=== PATIENT | female | born 1965 | race Hispanic/Latino ===

== ENCOUNTER 2017-08-20 | Emergency (ER) | payer BC ==
--- NOTE | 2017-08-20 04:02 | ER ---
Nurse's Notes [facility] Name: Joanna Parish Age: 52 yrs Sex: Female : 1965 Arrival Date: 08/20/2017 Time: 03:28 Bed 16 Private MD: Diagnosis: Suppurative otitis media, unspecified, right ear Presentation: 08/20 03:53 Presenting complaint: Patient states: Patient presented with ear pain that started 2 ag2 days ago, patient stated she has no ear drum in that ear and is draining pus from it. Transition of care: patient was not received from another setting of care. Onset of symptoms was August 18, 2017. Care prior to arrival: None. 03:53 Method Of Arrival: Ambulatory ag2 03:53 Acuity: ANDRES 4 ag2 Triage Assessment: 04:06 General: Appears in no apparent distress. uncomfortable, Behavior is calm, cooperative. ag2 DIRECTOR ASSET: 04:08 LMP N/A - Post-menopause ag2 Historical: - Allergies: 04:04 No Known Allergies; ag2 - Home Meds: 04:04 lisinopril-hydrochlorothiazide 20-25 mg oral tab 1 tab once daily for Hypertension ag2 [Active]; Janumet oral oral [Active]; Lipitor Oral [Active]; - PMHx: 04:02 Diabetes - NIDDM; Hypertension; gs 04:06 Hypertension; Hyperlipidemia; Diabetes - NIDDM; ag2 - PSHx: 04:06 ; ag2 - Immunization history:: Flu vaccine is not up to date. It has been more than one year since last vaccine. - Social history:: The patient lives at home, Patient/guardian denies using alcohol, street drugs, IV drugs, tobacco products, Smoking status: Patient/guardian denies using tobacco, never smoked. Screenin:10 Abuse screen: Denies threats or abuse. Nutritional screening: No deficits noted. ag2 Tuberculosis screening: No symptoms or risk factors identified. Fall Risk None identified. Assessment: 04:10 General: Appears in no apparent distress. uncomfortable, Behavior is calm, cooperative, ag2 Smells of. 04:12 Pain: Complains of pain in right ear Pain does not radiate. Pain currently is 7 out of ag2 10 on a pain scale. Cardiovascular: Heart tones S1 S2 present. Respiratory: Breath sounds are clear bilaterally. GI: Bowel sounds present X 4 quads. EENT: Reports pain in right ear. Vital Signs: 04:08 BP 165 / 110; Pulse 98; Resp 18; Temp 97.7; Pulse Ox 97% on R/A; Pain 7/10; ag2 ED Course: 03:28 Patient arrived in ED. do 03:46 Mikey Aguirre MD is Attending Physician. gs 03:56 Triage completed. ag2 04:01 Yudelka Machado MD is Referral Physician. gs 04:08 Arm band placed on left wrist. ag2 04:10 Patient has correct armband on for positive identification. Bed in low position. Call ag2 light in reach. Side rails up X2. Adult w/ patient. 04:10 No provider procedures requiring assistance completed. Patient did not have IV access ag2 during this emergency room visit. 04:14 Kim Leigh is Primary Nurse. ag2 Administered Medications: No medications were administered Outcome: 04:02 Discharge ordered by . 04:14 Discharged to home ambulatory. ag2 04:14 Condition: stable 04:14 Discharge instructions given to patient, Instructed on discharge instructions. 04:16 Patient left the ED. ag2 Signatures: Gina Reese Gregory, MD MD Kim Leigh ag2
--- NOTE | 2017-08-20 04:02 | EDPHYS ---
Physician Documentation [facility] Name: Joanna Parish Age: 52 yrs Sex: Female : 1965 Arrival Date: 08/20/2017 Time: 03:28 Bed 16 Private MD: ED Physician Mikey Aguirre HPI: 08/20 03:56 This 52 yrs old Female presents to ER via Unassigned with complaints of Ear gs Pain. 03:56 The patient presents with drainage, that is purulent, pain, that is acute. The gs complaints affect the right ear. Onset: The symptoms/episode began/occurred acutely, 3 day(s) ago, and became worse and became persistent. Associated signs and symptoms: Pertinent negatives: fever. Severity of symptoms: At their worst the symptoms were moderate in the emergency department the symptoms are unchanged. The patient has experienced similar episodes in the past, a few times. has loss of eardrum that side. HAND COPER: 04:08 LMP N/A - Post-menopause ag2 Historical: - Allergies: 04:04 No Known Allergies; ag2 - Home Meds: 04:04 lisinopril-hydrochlorothiazide 20-25 mg oral tab 1 tab once daily for Hypertension ag2 [Active]; Janumet oral oral [Active]; Lipitor Oral [Active]; - PMHx: 04:02 Diabetes - NIDDM; Hypertension; gs 04:06 Hypertension; Hyperlipidemia; Diabetes - NIDDM; ag2 - PSHx: 04:06 ; ag2 - Immunization history:: Flu vaccine is not up to date. It has been more than one year since last vaccine. - Social history:: The patient lives at home, Patient/guardian denies using alcohol, street drugs, IV drugs, tobacco products, Smoking status: Patient/guardian denies using tobacco, never smoked. ROS: 03:56 All other systems are negative. gs Exam: 03:56 Head/Face: Normocephalic, atraumatic. Eyes: Pupils equal round and reactive to light, gs extra-ocular motions intact. Lids and lashes normal. Conjunctiva and sclera are non-icteric and not injected. Cornea within normal limits. Periorbital areas with no swelling, redness, or edema. Neck: Trachea midline, no thyromegaly or masses palpated, and no cervical lymphadenopathy. Supple, full range of motion without nuchal rigidity, or vertebral point tenderness. No Meningismus. Chest/axilla: Normal chest wall appearance and motion. Nontender with no deformity. No lesions are appreciated. Cardiovascular: Regular rate and rhythm with a normal S1 and S2. No gallops, murmurs, or rubs. Normal PMI, no JVD. No pulse deficits. Respiratory: Lungs have equal breath sounds bilaterally, clear to auscultation and percussion. No rales, rhonchi or wheezes noted. No increased work of breathing, no retractions or nasal flaring. Abdomen/GI: Soft, non-tender, with normal bowel sounds. No distension or tympany. No guarding or rebound. No evidence of tenderness throughout. Back: No spinal tenderness. No costovertebral tenderness. Full range of motion. 03:56 Constitutional: The patient appears alert, awake. 03:56 ENT: External ear(s): are unremarkable, Ear canal(s): are normal, TM's: majority loss of tm on right some scant purulent drainage noted. Vital Signs: 04:08 BP 165 / 110; Pulse 98; Resp 18; Temp 97.7; Pulse Ox 97% on R/A; Pain 7/10; ag2 MDM: 03:56 Data reviewed: vital signs, nurses notes, and as a result, I will discharge patient. 04:02 Patient medically screened. Administered Medications: No medications were administered Disposition: 08/20/17 04:02 Discharged to Home. Impression: Suppurative otitis media, unspecified, right ear. - Condition is Stable. - Discharge Instructions: Ear Drops, Adult, Otitis Media, Adult. - Prescriptions for Ciprodex 0.3- 0.1 % Otic Drops, Suspension - instill 4 drop by OTIC route every 12 hours for 7 days , for ears ONLY; 1 Container. Ceftin 500 mg Oral Tablet - take 1 tablet by ORAL route every 12 hours for 10 days; 20 tablet. Tylenol- Codeine #4 300-60 mg Oral Tablet - take 1 tablet by ORAL route every 6 hours As needed; 10 tablet. - Medication Reconciliation Form, Thank You Letter, Antibiotic Education, Prescription Opioid Use form. - Follow up: Yudelka Machado MD; When: 2 - 3 days; Reason: Re-evaluation by your physician. Signatures: Mikey Aguirre MD MD gs Garcia, [employer] ag2
== END 2017-08-20 04:16 | disposition home or self-care (01) ==
CPT/HCPCS: 99281

== ENCOUNTER 2021-04-25 04:57 | Emergency (ER) | payer BC ==
--- OUTSIDE RECORDS SUMMARY | 2021-04-25 05:00 | XMS REPORT | Continuity of Care Document ---
:1965 Author Organization [facility] t Address [address] [place] [address] [place] [id number] Care Team Providers Name Role Phone Jr Johnson S Attending Clinician Unavailable Problems This patient has no known problems. Allergies, Adverse Reactions, Alerts This patient has no known allergies or adverse reactions. Medications This patient has no known medications. Procedures This patient has no known procedures. Encounters Start End Encounter Admission Attending Care Care Encounter Source Date/Time Date/Time Type Type Clinicians Facility Department ID 2017-08-29 2017-08-29 Outpatient Jr Johnson SET[facility] [address] 13:02:00 13:02:00 [facility] 2017-08-22 2017-08-22 Outpatient Jr Johnson SETENT SETENT 7 [address] 13:59:00 13:59:00 [facility] Results This patient has no known results.
--- NOTE | 2021-04-25 05:51 | ER ---
Nurse's Notes [facility] Name: Joanna Parish Age: 55 yrs Sex: Female : 1965 Arrival Date: 04/25/2021 Time: 05:04 Bed 13 Private MD: Diagnosis: Central perforation of tympanic membrane, right ear Presentation: 04/25 05:12 Chief complaint: Patient states: she does not have an eardrum in her right ear and it bb will drain when she has allergies but she woke up this morning with blood on her pillow from her ear she cleaned it before she came but no other blood has drained since then. Coronavirus screen: At this time, the client does not indicate any symptoms associated with coronavirus-19. Ebola Screen: No symptoms or risks identified at this time. Initial Sepsis Screen: Does the patient meet any 2 criteria? No. Patient's initial sepsis screen is negative. Does the patient have a suspected source of infection? No. Patient's initial sepsis screen is negative. Risk Assessment: Do you want to hurt yourself or someone else? Patient reports no desire to harm self or others. Onset of symptoms was April 25, 2021. 05:12 Method Of Arrival: Ambulatory bb 05:12 Acuity: ANDRES 5 bb Triage Assessment: 05:15 General: Appears in no apparent distress. Behavior is calm, cooperative. Pain: Denies bb pain. EENT: Reports bleeding from right ear. Neuro: Level of Consciousness is awake, alert, obeys commands, Oriented to person, place, time, situation. Cardiovascular: Capillary refill < 3 seconds Patient's skin is warm and dry. Respiratory: Airway is patent Respiratory effort is even, unlabored, Respiratory pattern is regular. GI: No signs and/or symptoms were reported involving the gastrointestinal system. Derm: Skin is pink, warm \T\ dry. Musculoskeletal: Circulation, motion, and sensation intact. Historical: - Allergies: 05:15 No Known Allergies; bb - Home Meds: 05:15 lisinopril 20 mg Oral tab 1 tab once daily [Active]; pantoprazole 40 mg oral TbEC 1 tab bb once daily [Active]; metformin 500 mg Oral tr24 1 tab once daily [Active]; atorvastatin 40 mg oral tab 1 tab once daily [Active]; - PMHx: 05:15 Diabetes - NIDDM; Hyperlipidemia; Hypertension; bb - PSHx: 05:15 section; bb - Immunization history:: Adult Immunizations up to date, Client reports having NOT received the Covid vaccine. - Social history:: Smoking status: Patient denies any tobacco usage or history of. Screenin:18 Abuse screen: Denies threats or abuse. Nutritional screening: No deficits noted. bb Tuberculosis screening: No symptoms or risk factors identified. Fall Risk None identified. Assessment: 05:18 Reassessment: No changes from previously documented assessment. Patient is alert, bb oriented x 3, equal unlabored respirations, skin warm/dry/pink. see triage assessment. 05:57 Reassessment: Patient is alert, oriented x 3, equal unlabored respirations, skin bb warm/dry/pink. pt verbalized understanding of and agrees to plan of care discharge instructions given pt ambulated with steady gait to exit accompanied by family. Vital Signs: 05:12 BP 161 / 86; Pulse 78; Resp 16 S; Temp 97.8(O); Pulse Ox 97% on R/A; Weight 82.55 kg bb (R); Height 5 ft. 2 in. (157.48 cm) (R); Pain 0/10; 05:12 Body Mass Index 33.29 (82.55 kg, 157.48 cm) bb ED Course: 05:04 Patient arrived in ED. 05:15 Triage completed. bb 05:15 Arm band placed on Patient placed in an exam room. bb 05:18 Frances Rodriguez RN is Primary Nurse. bb 05:18 Patient has correct armband on for positive identification. Call light in reach. bb 05:26 Marck Garnett MD is Attending Physician. [facility] 05:49 Lisa Akbar MD is Referral Physician. [facility] 05:58 No provider procedures requiring assistance completed. Patient did not have IV access bb during this emergency room visit. Administered Medications: No medications were administered Outcome: 05:51 Discharge ordered by . [facility] 05:58 Discharged to home ambulatory, with family. bb 05:58 Condition: stable 05:58 Discharge instructions given to patient, Instructed on discharge instructions, the need for admit, medication usage, Demonstrated understanding of instructions, follow-up care, medications, Prescriptions given X 1. 05:58 Patient left the ED. bb Signatures: Frances Rodriguez RN RN Marck Mahmood MD MD 7 Melanie Allen Corrections: (The following items were deleted from the chart) 05:17 05:15 PMHx: Hypertension; darien ledezma 05:17 05:15 PMHx: Diabetes - NIDDM; darien ledezma
--- NOTE | 2021-04-25 05:52 | EDPHYS ---
Physician Documentation [facility] Name: Joanna Parish Age: 55 yrs Sex: Female : 1965 Arrival Date: 04/25/2021 Time: 05:04 Bed 13 Private MD: ED Physician Marck Garnett HPI: 04/25 05:43 This 55 yrs old Female presents to ER via Ambulatory with complaints of mh7 Drainage From Ear - Blood. 05:43 The patient presents with drainage, that is bloody. The complaints affect the right mh7 ear. Onset: The symptoms/episode began/occurred today. Modifying factors: The symptoms are alleviated by nothing, the symptoms are aggravated by nothing. Associated signs and symptoms: Pertinent negatives: cough, fever, lightheadedness, nausea, rhinorrhea, sinus trouble, shortness of breath, sore throat, tinnitus, vertigo, vomiting. Severity of symptoms: At their worst the symptoms were mild today, in the emergency department the symptoms have improved moderately. Patient states that she has been using a Q-tip to clean her right ear then later noticed a bloody discharge coming from the ear. She denies any fever, nausea, vomiting, headache, or other complaints.. Historical: - Allergies: 05:15 No Known Allergies; bb - Home Meds: 05:15 lisinopril 20 mg Oral tab 1 tab once daily [Active]; pantoprazole 40 mg oral TbEC 1 tab bb once daily [Active]; metformin 500 mg Oral tr24 1 tab once daily [Active]; atorvastatin 40 mg oral tab 1 tab once daily [Active]; - PMHx: 05:15 Diabetes - NIDDM; Hyperlipidemia; Hypertension; bb - PSHx: 05:15 section; bb - Immunization history:: Adult Immunizations up to date, Client reports having NOT received the Covid vaccine. - Social history:: Smoking status: Patient denies any tobacco usage or history of. ROS: 05:43 Constitutional: Negative for fever, chills, and weight loss, Eyes: Negative for injury, mh7 pain, redness, and discharge, Neck: Negative for injury, pain, and swelling, Cardiovascular: Negative for chest pain, palpitations, and edema, Respiratory: Negative for shortness of breath, cough, wheezing, and pleuritic chest pain, Abdomen/GI: Negative for abdominal pain, nausea, vomiting, diarrhea, and constipation, Back: Negative for injury and pain, : Negative for injury, bleeding, discharge, and swelling, MS/Extremity: Negative for injury and deformity, Skin: Negative for injury, rash, and discoloration, Neuro: Negative for headache, weakness, numbness, tingling, and seizure, Psych: Negative for depression, anxiety, suicide ideation, homicidal ideation, and hallucinations, Allergy/Immunology: Negative for hives, rash, and allergies, Endocrine: Negative for neck swelling, polydipsia, polyuria, polyphagia, and marked weight changes, Hematologic/Lymphatic: Negative for swollen nodes, abnormal bleeding, and unusual bruising. Exam: 05:43 Constitutional: This is a well developed, well nourished patient who is awake, alert, mh7 and in no acute distress. Head/Face: Normocephalic, atraumatic. Eyes: Pupils equal round and reactive to light, extra-ocular motions intact. Lids and lashes normal. Conjunctiva and sclera are non-icteric and not injected. Cornea within normal limits. Periorbital areas with no swelling, redness, or edema. Neck: Trachea midline, no thyromegaly or masses palpated, and no cervical lymphadenopathy. Supple, full range of motion without nuchal rigidity, or vertebral point tenderness. No Meningismus. Chest/axilla: Normal chest wall appearance and motion. Nontender with no deformity. No lesions are appreciated. Cardiovascular: Regular rate and rhythm with a normal S1 and S2. No gallops, murmurs, or rubs. Normal PMI, no JVD. No pulse deficits. Respiratory: Lungs have equal breath sounds bilaterally, clear to auscultation and percussion. No rales, rhonchi or wheezes noted. No increased work of breathing, no retractions or nasal flaring. Abdomen/GI: Soft, non-tender, with normal bowel sounds. No distension or tympany. No guarding or rebound. No evidence of tenderness throughout. Back: No spinal tenderness. No costovertebral tenderness. Full range of motion. Skin: Warm, dry with normal turgor. Normal color with no rashes, no lesions, and no evidence of cellulitis. MS/ Extremity: Pulses equal, no cyanosis. Neurovascular intact. Full, normal range of motion. Neuro: Awake and alert, GCS 15, oriented to person, place, time, and situation. Cranial nerves II-XII grossly intact. Motor strength 5/5 in all extremities. Sensory grossly intact. Cerebellar exam normal. Normal gait. Psych: Awake, alert, with orientation to person, place and time. Behavior, mood, and affect are within normal limits. 05:43 ENT: External ear(s): are unremarkable, Ear canal(s): are normal, clear, TM's: erythema, is not appreciated, fluid levels, is not appreciated, hemotympanum, is not appreciated, rupture, on the right, with bloody discharge, Mild, Examination of the other ear shows no obvious abnormality, Nose: is normal, Mouth: is normal, Posterior pharynx: is normal, airway is patent, Dental exam: normal, Voice: is normal. Vital Signs: 05:12 BP 161 / 86; Pulse 78; Resp 16 S; Temp 97.8(O); Pulse Ox 97% on R/A; Weight 82.55 kg bb (R); Height 5 ft. 2 in. (157.48 cm) (R); Pain 0/10; 05:12 Body Mass Index 33.29 (82.55 kg, 157.48 cm) bb MDM: 05:48 Differential diagnosis: otitis media, otitis externa, ruptured TM, foreign body, acute mh7 otalgia, cerumen impaction, barotrauma , serotympanum. Data reviewed: vital signs, nurses notes, old medical records. Data interpreted: Pulse oximetry: on room air is 97 %. Interpretation: normal. Counseling: I had a detailed discussion with the patient and/or guardian regarding: the historical points, exam findings, and any diagnostic results supporting the discharge/admit diagnosis, the presence of at least one elevated blood pressure reading (>120/80) during this emergency department visit, the need for outpatient follow up, an ENT specialist. Response to treatment: the patient's symptoms have markedly improved after treatment. 05:51 Patient medically screened. mh7 Administered Medications: No medications were administered Disposition Summary: 04/25/21 05:51 Discharge Ordered Location: Home [facility] Problem: new mh7 Symptoms: have improved mh7 Condition: Stable mh7 Diagnosis - Central perforation of tympanic membrane, right ear mh7 Followup: mh7 - With: Private Physician - When: 1 - 2 days - Reason: Worsening of condition, Recheck today's complaints, Continuance of care, Re-evaluation by your physician Followup: [facility] - With: Lisa Akbar MD - When: 1 - 2 days - Reason: Worsening of condition, Recheck today's complaints Discharge Instructions: - Discharge Summary Sheet [facility] - Eardrum Rupture, [id number] [facility] Forms: - Medication Reconciliation Form [facility] - Work release form bb - Thank You Letter [facility] - Antibiotic Education [facility] - Prescription Opioid Use [facility] Prescriptions: - Cortisporin-TC 3.3-3-10-0.5 mg/mL Otic Suspension - instill 4 drops by OTIC route every 6 hours; 1 bottle; Refills: 0, Product [facility] Selection Permitted Signatures: Frances Rodriguez RN RN Marck Mahmood MD MD [facility] Corrections: (The following items were deleted from the chart) 05:17 05:15 PMHx: Hypertension; darien ledezma 05:17 05:15 PMHx: Diabetes - NIDDM; darien ledezma
[2021-04-25 06:03] VITALS: BP 161/86; TEMP 97.8; O2SAT 97
== END 2021-04-25 05:58 | disposition home or self-care (01) ==
LOC: ER 04:57
DX: H72.01 Central perforation of tympanic membrane, right ear (principal); I10 Essential (primary) hypertension; E11.9 Type 2 diabetes mellitus without complications; E78.5 Hyperlipidemia, unspecified
CPT/HCPCS: 99282

== ENCOUNTER 2023-03-15 12:23 | Emergency (ER) | payer BC ==
--- OUTSIDE RECORDS SUMMARY | 2023-03-15 12:47 | XMS REPORT | Continuity of Care Document ---
:1965 Author Organization [facility] t Address [address] [facility] [place] [address] Care Team Providers Name Role Phone GUSTAVOASHWIN VALERA Robin Primary Care Physician Unavailable OZIEL ERWIN Attending Clinician Unavailable SHARMAINE QUEZADA Attending Clinician Unavailable SLICK DORANTES Attending Clinician Unavailable DOMINGUEZ DU Attending Clinician Unavailable JESSICA WILD Attending Clinician Unavailable LAB90 Attending Clinician Unavailable FABIO PETER Attending Clinician Unavailable HILARY ANCHOR Attending Clinician Unavailable SERAFIN CHIN Attending Clinician Unavailable OZIEL ERWIN Attending Clinician Unavailable JERRI MANCIA Attending Clinician Unavailable ALEX EASLEY Attending Clinician Unavailable ALEX EASLEY Attending Clinician Unavailable CHAPIS EARL Attending Clinician Unavailable PRANAV LOCKE Attending Clinician Unavailable ALEX ALONSO Attending Clinician Unavailable ANN MILLER Attending Clinician Unavailable PROVIDER, AFFILIATE Attending Clinician Unavailable DAVID CANADA Attending Clinician Unavailable SKYE CONNOR Attending Clinician Unavailable ALBERTO KEITH Attending Clinician Unavailable NARCISO DELUCA Attending Clinician Unavailable Sharmaine Andres Attending Clinician Unavailable DIRECT ACCESS RUPINDER, [facility] Attending Clinician Unavailsunny PEREAP, Saúl Attending Clinician SAÚL COOPER Attending Clinician Unavailable Doctor Unassigned, [place] Attending Clinician Unavailable Lab, Ang - Db Attending Clinician Unavailable SALOMON SHEPARD Attending Clinician Unavailable Jr Johnson Harold S Attending Clinician Unavailable OZIEL ERWIN Admitting Clinician Unavailable ALEX ALONSO Admitting Clinician Unavailable АЛЕКСАНДРANN Marrero Admitting Clinician Unavailable SAÚL COOPER Admitting Clinician Unavailable Payers Payer Name Policy Type Policy Number Effective Date Expiration Date Amanda wright [employer]ET[employer] MP [employer] SILVER 9 [id number] 2022 2: [employer] 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 94 00:00:00 ON AETNA CVS 2 [id number] 2022 MARKETPLACE 00:00:00 AETNA EXCHANGE [id number] 2022 00:00:00 KERNS RULE OPEN [id number] 2022 CHOICE 00:00:00 [facility] [id number] 2022 RULE 00:00:00 Problems Condition Condition Condition Status Onset Resolution Last Treating Co mments Source Name Details Category Date Date Treatment Clinician Date Right Right Disease Active 2022-05 Cherise lower lower - Seybold quadrant quadrant 00:00: - abdominal abdominal 00 Exte rna pain pain l Constipati Constipati Disease Active 2022-05 K elsey on on 05-15 Seybold 00:00: - 00 Externa l Uterine Uterine Disease Active 2022-05 Cherise fibroid fibroid 05-15 Seybold 00:00: - 00 Externa l Renal Renal Disease Active Cherise cyst, cyst, 01-25 Seybold right right 00:00: - 00 Externa l Angiomyoli Angiomyoli Disease Active K elsey noris of noris of 01-25 Seybold left left 00:00: - kidney kidney 00 Externa l GERD GERD Disease Active Cherise (gastroeso (gastroeso 01-25 Se ybold phageal phageal 00:00: - reflux reflux 00 Externa disease) disease) l [facility] Disease Active Toshia blount ation ation 3-24 Seybold within within 00:00: - last 30 last 00 Externa days days l History of History of Disease Active Toshia bluont obstructio obstructio 3 Se ybold n of n of 00:00: - ureter ureter 00 Externa l Hx of Hx of Disease Active Cherise pyelonephr pyelonephr 07-29 Se ybold itis itis 00:00: - 00 Externa l History of History of Disease Active Toshia blount bacteremia bacteremia 07-29 Se ybold 00:00: - 00 Externa l Class 1 Class 1 Disease Active Cherise obesity obesity 2-14 Seybold due to due to 00:00: - excess excess 00 Externa calories calories l with with serious serious comorbidit comorbidit y and body y and body mass index mass index (BMI) of (BMI) of 34.0 to 34.0 to 34.9 in 34.9 in adult adult Class 1 Class 1 Disease Active Cherise obesity obesity 2-14 Seybold due to due to 00:00: - excess excess 00 Externa calories calories l with with serious serious comorbidit comorbidit y and body y and body mass index mass index (BMI) of (BMI) of 34.0 to 34.0 to 34.9 in 34.9 in adult adult Primary Primary Disease Active Cherise hypertensi hypertensi 2-07 Se ybold on on 00:00: - 00 Externa l 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 2-07 Seybol d mellitus mellitus 00:00: - without without 00 Externa complicati complicati l on, on, without without long-term long-term current current use of use of insulin insulin Other Other Disease Active Cherise hyperlipid hyperlipid 2-07 Se ybold emia emia 00:00: - 00 Externa l Hydronephr Hydronephr Disease Active K elsey osis, osis, 2-07 Seybold left--sp left--sp 00:00: - left PCN left PCN 00 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 a 06/10/22 06/10/22 l Bacteremia Bacteremia Disease Active K elsey 06/2022 2-07 Seybold 00:00: - 00 Externa l Candidemia Candidemia Disease Active K elsey (HCC) (HCC) 2-07 Seybold 06/2022 00:00: - 00 Externa l Ureteral Ureteral Disease Active Kelse y stricture, stricture, 2-07 Se ybold left left 00:00: - 06/2022 00 Externa l 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 00:00: - mixed mixed 00 Externa hyperlipid hyperlipid l emia emia (multi (multi HCC) HCC) Wellness Wellness Disease Active Unive rs examinatio examinatio 3 it y of n n 00:00: [place] [facility] Cough Cough Disease Active [facility] 2-16 ity of 00:00: [place] 00 [facility] Primary Primary Disease Active Univers hypertensi hypertensi 2-16 it y of on on 00:00: [place] 00 [facility] Type 2 Type 2 Disease Active Univers diabetes diabetes 2-16 ity of mellitus mellitus 00:00: [place] without without 00 Medical complicati complicati Br anch on, on, without without long-term long-term current current use of use of insulin insulin Upper Upper Disease Active Univers respirator respirator 2-16 it y of y tract y tract 00:00: [place] infection, infection, 00 Me dical unspecifie unspecifie Br anch d type d type Need for Need for Disease Active Unive rs hepatitis hepatitis 2-16 ity of C C 00:00: [place] screening screening 00 Medi иван test test Branch Allergies, Adverse Reactions, Alerts Allergy Allergy Status Severity Reaction(s) Onset Inactive Treating Comm ents Source Name Type Date Date Clinician No Known DA Active U [facility] Drug 2-03 Allergie 00:00: s 00 Unable DA Active U [facility] to 2-02 Assess 00:00: 00 NO KNOWN Drug Active Univers ALLERGIE Class [facility] of [facility] [place] [facility] NO KNOWN Allergy Active [facility] Social History Social Habit Start Date Stop Date Quantity Comments Source Sexual orientation [facility] Gender identity Cherisezenon nielsen - External History SDOH Cherise will ld - Alcohol Frequency Externa l History SDOH Cherise Maureenmala ld - Alcohol Std Drinks 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 Tobacco use and 2022-06-17 2022-06-17 Smokeless Cherise ybold - exposure 00:00:00 00:00:00 tobacco non-user External Exposure to 2021-06-06 2021-07-06 Yes [facility] SARS-CoV-2 (event) 00:00:00 16:09:00 [facility] History of Social 2021-07-06 2021-07-06 Univers ity of function 00:00:00 00:00:00 [facility] Sex [birth year] At [birth year] Cherise ashleyold - 00:00:00 00:00:00 External Smoking Status Start Date Stop Date Source Never smoked tobacco Cherise Reddy old - External Medications Ordered Filled Start Stop Current Ordering Indication Dosage Frequency Signature Comments Components Source Medication Medication Date Date Medication? Clinician (SIG) Name Name Pantoprazol 2022-05 Yes 40mg Take 1 Chel ey e Sodium 40 1-08 tablet (40 Se ybold MG oral 11:35: mg total) - Tablet 02 by mouth Externa Delayed daily. l Response HYDROcodone 2022-05- No 1{tbl} Q.[id number] Take 1 Cherise -Acetaminop -07 11-08 [id number] tablet by Bonita damon (NORCO) 00:00: 00:00 3D mouth - 5-325 MG 00 :00 every 8 Externa oral Tablet hours as l needed. [place]-3 Yes [id number] 1000mg Take 1 Cherise Fatty Acids 9-21 3 capsule Seybo ld (Fish Oil) 00:00: (1,000 mg - 1000 MG 00 total) by Externa oral mouth 2 l Capsule times daily. Pantoprazol Yes 40mg Take 1 Chel ey e Sodium 40 9-20 tablet (40 Se ybold MG oral 11:18: mg total) - Tablet 40 by mouth Externa Delayed daily. l Response Pantoprazol Yes 40mg Take 1 Chel ey e Sodium 40 9-20 tablet (40 Se ybold MG oral 11:18: mg total) - Tablet 40 by mouth Externa Delayed daily. l Response Trulicity Yes [id number] 1.5mg Inject 1.5 Cherise 1.5 9-20 3 mg into Seybold MG/0.5ML 00:00: the skin - subcutaneou 00 once a 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 a s Solution week. l Pen-injecto r Trulicity Yes [id number] 1.5mg Inject 1.5 Cherise 1.5 9-20 3 mg into Seybold MG/0.5ML 00:00: the skin - subcutaneou 00 once a 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 a s Solution week. l Pen-injecto r Trulicity Yes [id number] 1.5mg Inject 1.5 Cherise 1.5 9-20 3 mg into Seybold MG/0.5ML 00:00: the skin - subcutaneou 00 once a 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 a s Solution week. l Pen-injecto r Trulicity 2022- No [id number] INJECT Cherise 0.75 5-24 09-20 3 0.75 MG Seybold MG/0.5ML 00:00: 00:00 SUBCUTANEO - subcutaneou 00 :00 USLY ONE Exte rna s Solution TIME PER l Pen-injecto WEEK r Trulicity 2022- No [id number] INJECT Cherise 0.75 5-24 09-20 3 0.75 MG Seybold MG/0.5ML 00:00: 00:00 SUBCUTANEO - subcutaneou 00 :00 USLY ONE Exte rna s Solution TIME PER l Pen-injecto WEEK r Pantoprazol 2022-0 Yes 40mg Take 1 Chel ey e Sodium 40 5-05 tablet (40 Se ybold MG oral 08:48: mg total) - Tablet 35 by mouth Externa Delayed daily l Response Phenazopyri 2022-0 Yes 200mg Q.[id number] Take 1 Cherise dine HCl 4-06 [id number] tablet Sey bold 200 MG oral 00:00: 3D (200 mg - Tablet 00 total) by Externa mouth 3 l times daily as needed for pain TRIMETHOPRI 2022-0 Yes [id number] Take 1 tab Cherise M-SULFAMETH 4-06 by mouth Seyb old OXAZOLE 00:00: twice - (Bactrim 00 daily Externa DS) 800-160 starting l MG oral the day Tablet prior to cystoscopy procedure. HYDROcodone 2022-0 Yes 1{tbl} Q.25D Take 1 K elsey -Acetaminop 4-06 tablet by Zenon damon (Shippo) 00:00: mouth - 5-325 MG 00 every 6 Externa oral Tablet hours as l needed for pain Phenazopyri 2022-0 2023- No 200mg Q.[id number] Take 1 Cherise dine HCl -10 14-20 [id number] tablet Se ybold 200 MG oral 00:00: 00:00 3D (200 mg - Tablet 00 :00 total) by Externa mouth 3 l times daily as needed for pain TRIMETHOPRI 2023-0 2023- No [id number] Take 1 tab Cherise M-SULFAMETH 4-10 14-20 by mouth Sey bold OXAZOLE 00:00: 00:00 twice - (Bactrim 00 :00 daily Externa DS) 800-160 starting l MG oral the day Tablet prior to cystoscopy procedure. HYDROcodone 2023-0 2023- No 1{tbl} Q.25D Take 1 Cherise -Acetaminop 4-06 09-20 tablet by Se morales hen (Shippo) 00:00: 00:00 mouth - 5-325 MG 00 :00 every 6 Externa oral Tablet hours as l needed for pain Phenazopyri 2023-0 2023- No 200mg Q.[id number] Take 1 Cherise dine HCl 08-11 [id number] tablet Se nielsen 200 MG oral 00:00: 00:00 3D (200 mg - Tablet 00 :00 total) by Externa mouth 3 l times daily as needed for pain TRIMETHOPRI 2022- No [id number] Take 1 tab Cherise M-SULFAMETH 08-11 by mouth Seomayra bold OXAZOLE 00:00: 00:00 twice - (Bactrim 00 :00 daily Externa DS) 800-160 starting l MG oral the day Tablet prior to cystoscopy procedure. HYDROcodone 2022- No 1{tbl} Q.25D Take 1 Cherise -Acetaminop 08-11 tablet by Se gabimerlin hen ([place]) 00:00: 00:00 mouth - 5-325 MG 00 :00 every 6 Externa oral Tablet hours as l needed for pain Pantoprazol Yes 40mg Take 40 mg Cherise e Sodium 40 3-24 by mouth Seyb old MG oral 15:55: daily - Tablet 32 Externa Delayed l Response Ertapenem 2022- No 1g Inject 1 g K elsey (INVANZ) 1 3-24 04-08 into the Seyb old g injection 15:55: 04:59 muscle - Recon Soln 32 :00 once Externa l Blood 2022-0 Yes [id number] Check Chel ey Glucose 3-24 3 blood Seybold Monitoring 00:00: sugars - Suppl 00 twice Externa (Blood daily. l Glucose Monitor System) w/Device does not apply Kit Glucose 2022-0 Yes [id number] 1{each} 1 each by Cherise Blood in 3-24 3 other Seybold vitro Strip 00:00: route - 00 daily Externa Check l blood sugars twice daily Lancets 30G 2022-0 Yes [id number] Check Cherise does not 3-24 3 blood Seybold apply Misc 00:00: sugar - 00 twice Externa daily l Blood 2022-0 Yes [id number] Check Chel ey Glucose 3-24 3 blood Seybold Monitoring 00:00: sugars - Suppl 00 twice Externa (Blood daily. l Glucose Monitor System) w/Device does not apply Kit Glucose 0 Yes [id number] 1{each} 1 each by Cherise Blood in 3-24 3 other Seybold vitro Strip 00:00: route - 00 daily Externa Check l blood sugars twice daily Lancets 30G 2023-0 Yes [id number] Check Chreise does not 3-24 3 blood Seybold apply Misc 00:00: sugar - 00 twice Externa daily l Blood 2023-0 Yes [id number] Check Chel ey Glucose 3-24 3 blood Seybold Monitoring 00:00: sugars - Suppl 00 twice Externa (Blood daily. l Glucose Monitor System) w/Device does not apply Kit Glucose 2023-0 Yes [id number] 1{each} 1 each by Cherise Blood in 3-24 3 other Seybold vitro Strip 00:00: route - 00 daily Externa Check l blood sugars twice daily Lancets 30G 3-0 Yes [id number] Check Cherise does not 3-24 3 blood Seybold apply Misc 00:00: sugar - 00 twice Externa daily l Blood 2023-0 Yes [id number] Check Chel ey Glucose 3-24 3 blood Seybold Monitoring 00:00: sugars - Suppl 00 twice Externa (Blood daily. l Glucose Monitor System) w/Device does not apply Kit Glucose 3-0 Yes [id number] 1{each} 1 each by Cherise Blood in 3-24 3 other Seybold vitro Strip 00:00: route - 00 daily Externa Check l blood sugars twice daily Lancets 30G 2023-0 Yes [id number] Check Cherise does not 3-24 3 blood Seybold apply Misc 00:00: sugar - 00 twice Externa daily l Blood 2023-0 Yes [id number] Check Chel ey Glucose 3-24 3 blood Seybold Monitoring 00:00: sugars - Suppl 00 twice Externa (Blood daily. l Glucose Monitor System) w/Device does not apply Kit Glucose 2023-0 Yes [id number] 1{each} 1 each by Cherise Blood in 3-24 3 other Seybold vitro Strip 00:00: route - 00 daily Externa Check l blood sugars twice daily Lancets 30G 2023-0 Yes [id number] Check Cherise does not 3-24 3 blood Seybold apply Misc 00:00: sugar - 00 twice Externa daily l Pantoprazol 2023-0 Yes 40mg Take 40 mg Cherise e Sodium 40 3-21 by mouth Seyb old MG oral 15:01: daily - Tablet 13 Externa Delayed l Response Pantoprazol Yes 40mg Take 40 mg Cherise e Sodium 40 3-21 by mouth Seyb old MG oral 15:01: daily - Tablet 13 Externa Delayed l Response Ertapenem 0 2022- No 1g Inject 1 g K elsey (INVANZ) 1 07-26 04-08 into the Seyb old g injection 15:01: 04:59 muscle - Recon Soln 13 :00 once Externa l Ertapenem 0 2022- No 1g Inject 1 g K elsey (INVANZ) 1 07-26 04-08 into the Seyb old g injection 15:01: 04:59 muscle - Recon Soln 13 :00 once Externa l Trulicity Yes [id number] .75mg Inject Cherise 0.75 3-07 3 0.75 mg Seybold MG/0.5ML 00:00: into the - subcutaneou 00 skin once Ext leeanne s Solution a week l Pen-injecto r Insulin Pen Yes [id number] Use as Cherise Needle 31G 3-07 3 directed Seybo ld X 5 MM does 00:00: with - not apply 00 Trulicty 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 a Misc pen for l once a week SC injection. Trulicity Yes [id number] .75mg Inject Cherise 0.75 3-07 3 0.75 mg Seybold MG/0.5ML 00:00: into the - subcutaneou 00 skin once Ext leeanne s Solution a week l Pen-injecto r Insulin Pen Yes [id number] Use as Cherise Needle 31G 3-07 3 directed Seybo ld X 5 MM does 00:00: with - not apply 00 Trulicty 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 a Misc pen for l once a week SC injection. Trulicity Yes [id number] .75mg Inject Cherise 0.75 3-07 3 0.75 mg Seybold MG/0.5ML 00:00: into the - subcutaneou 00 skin once Ext leeanne s Solution a week l Pen-injecto r Insulin Pen Yes [id number] Use as Cherise Needle 31G 3-07 3 directed Seybo ld X 5 MM does 00:00: with - not apply 00 Trulicty 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 a Misc pen for l once a week SC injection. Trulicity Yes [id number] .75mg Inject Cherise 0.75 3-07 3 0.75 mg Seybold MG/0.5ML 00:00: into the - subcutaneou 00 skin once Ext leeanne s Solution a week l Pen-injecto r Insulin Pen Yes [id number] Use as Cherise Needle 31G 3-07 3 directed Seybo ld X 5 MM does 00:00: with - not apply 00 Trulicty 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 a Misc pen for l once a week SC injection. Insulin Pen Yes [id number] Use as Cherise Needle 31G 3-07 3 directed Seybo ld X 5 MM does 00:00: with - not apply 00 Trulicty 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 a Misc pen for l once a week SC injection. Insulin Pen Yes [id number] Use as Cherise Needle 31G 3-07 3 directed Seybo ld X 5 MM does 00:00: with - not apply 00 Trulicty 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 a Misc pen for l once a week SC injection. Insulin Pen Yes [id number] Use as Cherise Needle 31G 3-07 3 directed Seybo ld X 5 MM does 00:00: with - not apply 00 Trulicty 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 a Misc pen for l once a week SC injection. Atorvastati 2022- No 40mg Take 40 mg Cherise n Calcium 06-21 by mouth Seybo ld 40 MG oral 11:42: 00:00 daily - Tablet 58 :00 Externa l Empaglifloz 2022- No 25mg Take 25 mg Cherise in 06-21 by mouth Seybold (Jardiance) 11:42: 00:00 daily - 25 MG oral 37 :00 Externa Tablet l LISINOPRIL- 2022- No 1{tbl} Take 1 K elsey HCTZ 06-21 tablet by Seybmerlin 20-12.5 MG 11:41: 00:00 mouth - oral Tablet 35 :00 daily Externa l Metformin 2022-0 2022- No 1000mg Take 1,000 Cherise HCl 1000 MG 2-14 02-14 mg by Seybol d oral Tablet 11:41: 00:00 mouth in - 22 :00 the Externa morning l and 1,000 mg in the evening. Take with meals. Pantoprazol 2022-0 2022- No 40mg Take 40 mg Cherise e Sodium 40 2-14 02-14 by mouth Sey bold MG oral 11:40: 00:00 daily - Tablet 22 :00 Externa Delayed l Response Pantoprazol 2022-0 2022- No 40mg Take 40 mg Cherise e Sodium 40 2-14 02-14 by mouth Sey bold MG oral 11:40: 00:00 daily - Tablet 16 :00 Externa Delayed l Response Promethazin 2022-0 2022- No 12.5mg Q.25D Take 12.5 Cherise e HCl 12.5 2-14 02-14 mg by Seybold MG oral 11:40: 00:00 mouth - Tablet 01 :00 every 6 Externa hours as l needed for nausea Fluconazole 2022-0 Yes 400mg Take 400 K elsey 200 MG oral 2-14 mg by Seybold Tablet 11:22: mouth - 04 daily Externa l levoFLOXaci 2022-0 Yes 750mg Take 750 K elsey n 750 MG 2-14 mg by Seybold oral Tablet 11:22: mouth - 04 daily Externa l OZEMPIC 2022-0 Yes [id number] .25mg Inject Cherise (0.25 or 2-14 3 0.25 mg Seybold 0.5 00:00: into the - mg/dose) 2 00 skin once Exte rna mg/1.5 mL a week l SQ Solution Pen-Injecto r Fluconazole 2022-0 Yes 400mg Take 400 K elsey 200 MG oral 2-10 mg by Seybold Tablet 16:07: mouth - 47 daily Externa l levoFLOXaci 2022-0 Yes 750mg Take 750 K elsey n 750 MG 2-10 mg by Seybold oral Tablet 16:07: mouth - 47 daily Externa l Promethazin 2022-0 Yes 12.5mg Q.25D Take 12.5 Cherise e HCl 12.5 2-10 mg by Seybold MG oral 16:07: mouth - Tablet 47 every 6 Externa hours as l needed for nausea Atorvastati 0 Yes 40mg Take 40 mg Cherise n Calcium 2-10 by mouth Seybol d 40 MG oral 16:07: daily - Tablet 47 Externa l Empaglifloz 0 Yes 25mg Take 25 mg Cherise in 2-10 by mouth Seybold (Jardiance) 16:07: daily - 25 MG oral 47 Externa Tablet l Metformin Yes 1000mg Take 1,000 Cherise HCl 1000 MG 2-10 mg by Seybold oral Tablet 16:07: mouth in - 47 the Externa morning l and 1,000 mg in the evening. Take with meals. Pantoprazol Yes 40mg Take 40 mg Cherise e Sodium 40 2-10 by mouth Seyb old MG oral 16:07: daily - Tablet 47 Externa Delayed l Response Tramadol 0 2022- No 50mg Q.25D Take 50 mg K elsey HCl 06-15 by mouth Seybold (ULTRAM) 50 00:00: 04:59 every 6 - MG oral 00 :00 hours as Externa Tablet needed l Tramadol 2022-0 2022- No 50mg Q.25D Take 50 mg K elsey HCl 06-15-24 by mouth Seybold (ULTRAM) 50 00:00: 05:59 every 6 - MG oral 00 :00 hours as Externa Tablet needed l glipiZIDE 2022-0 2022- No TAKE 1 Kelse y 10 MG oral 05-1014 TABLET (10 Se ybold Tablet 00:00: 00:00 MG TOTAL) - 00 :00 BY MOUTH 2 Externa (TWO) l TIMES DAILY BEFORE MEALS Metformin 2021-05 Yes 1000mg Take 1,000 Cherise HCl 1000 MG 2-29 mg by Seybold oral Tablet 00:00: mouth in - 00 the Externa morning l and 1,000 mg in the evening. Take with meals. Metformin 2021-05 Yes 1000mg Take 1,000 Cherise HCl 1000 MG 2-29 mg by Seybold oral Tablet 00:00: mouth in - 00 the Externa morning l and 1,000 mg in the evening. Take with meals. Metformin 2021-05 Yes 1000mg Take 1,000 Cherise HCl 1000 MG 2-29 mg by Seybold oral Tablet 00:00: mouth in - 00 the Externa morning l and 1,000 mg in the evening. Take with meals. Metformin 2021-05 Yes 1000mg Take 1 Chel ey HCl 1000 MG 2-29 tablet Seybol d oral Tablet 00:00: (1,000 mg - 00 total) by Externa mouth in l the morning and 1 tablet (1,000 mg total) in the evening. Take with meals. Metformin 2021-05 Yes 1000mg Take 1 Chel ey HCl 1000 MG 2-29 tablet Seybol d oral Tablet 00:00: (1,000 mg - 00 total) by Externa mouth in l the morning and 1 tablet (1,000 mg total) in the evening. Take with meals. Metformin 2021-05 Yes 1000mg Take 1 Chel ey HCl 1000 MG 2-29 tablet Seybol d oral Tablet 00:00: (1,000 mg - 00 total) by Externa mouth in l the morning and 1 tablet (1,000 mg total) in the evening. Take with meals. Metformin 2021-05 Yes 1000mg Take 1 Chel ey HCl 1000 MG 2-29 tablet Seybol d oral Tablet 00:00: (1,000 mg - 00 total) by Externa mouth in l the morning and 1 tablet (1,000 mg total) in the evening. Take with meals. Metformin 2021-05 Yes 1000mg Take 1,000 Cherise HCl 1000 MG 2-29 mg by Seybold oral Tablet 00:00: mouth in - 00 the Externa morning l and 1,000 mg in the evening. Take with meals. Atorvastati 2021-05 Yes 40mg Take 40 mg Cherise n Calcium 2-08 by mouth Seybol d 40 MG oral 00:00: daily - Tablet 00 Externa l Atorvastati 2021-05 Yes 40mg Take 40 mg Cherise n Calcium 2-08 by mouth Seybol d 40 MG oral 00:00: daily - Tablet 00 Externa l Atorvastati 2021-05 Yes 40mg Take 40 mg Cherise n Calcium 2-08 by mouth Seybol d 40 MG oral 00:00: daily - Tablet 00 Externa l Atorvastati 2021-05 Yes 40mg Take 1 Chel ey n Calcium 2-08 tablet (40 Seyb old 40 MG oral 00:00: mg total) - Tablet 00 by mouth Externa daily l Atorvastati 2021-05 Yes 40mg Take 1 Chel ey n Calcium 2-08 tablet (40 Seyb old 40 MG oral 00:00: mg total) - Tablet 00 by mouth Externa daily. l Atorvastati 2021-05 Yes 40mg Take 1 Chel ey n Calcium 2-08 tablet (40 Seyb old 40 MG oral 00:00: mg total) - Tablet 00 by mouth Externa daily. l Atorvastati 2021-05 Yes 40mg Take 1 Chel ey n Calcium 2-08 tablet (40 Seyb old 40 MG oral 00:00: mg total) - Tablet 00 by mouth Externa daily. l Atorvastati 2021-05 Yes 40mg Take 40 mg Cherise n Calcium 2-08 by mouth Seybol d 40 MG oral 00:00: daily - Tablet 00 Externa l lisinopriL 2021-05- No 20mg Take 20 mg Univers 20 mg 0-28 10-28 by mouth ity of tablet 08:30: 00:00 daily. [place] 32 :00 [facility] atorvastati 2021-05- No 40mg Take 40 mg Univers n 40 mg 0-28 10-28 by mouth ity of tablet 08:30: 00:00 at [place] 32 :00 bedtime. Medical Branch LISINOPRIL 2021-05 Yes [id number] TAKE ONE Univers 20 mg 0-28 (1) ity of tablet 00:00: TABLET(S) [place] 00 BY MOUTH Medical ONCE A Branch DAY. METFORMIN 2021-05 Yes [id number] TAKE ONE Univers ER 500 mg 0-28 (1) ity of 24 hr 00:00: TABLET(S) [place] tablet 00 BY MOUTH Medical ONCE A Branch DAY. ATORVASTATI 2021-05 Yes [id number] TAKE ONE Univers N 40 mg 0-28 (1) ity of tablet 00:00: TABLET(S) [place] 00 BY MOUTH Medical AT Branch BEDTIME. Lisinopril 2021-05- No 20mg Take 20 mg Cherise 20 MG oral 0-28 02-14 by mouth Seyb old Tablet 00:00: 00:00 daily - 00 :00 Externa l semaglutide Yes [id number] .25mg inject Univers (OZEMPIC) 5-27 0.25 mg ity of 0.25 mg [place] 00:00: [place] 0.5 mg(2 00 skin Medical mg/1.5 mL) weekly. Branch PnIj semaglutide Yes [id number] .25mg inject Univers (OZEMPIC) 5-27 0.25 mg ity of 0.25 mg [place] 00:00: [place] the [place] 0.5 mg(2 00 skin Medical mg/1.5 mL) weekly. Branch PnIj OZEMPIC 2022- No .25mg Inject Cherise (0.25 or 5-27 02-14 0.25 mg Seybold 0.5 00:00: 00:00 into the - mg/dose) 2 00 :00 skin once Exte rna mg/1.5 mL a week l SQ Solution Pen-Injecto r OZEMPIC Yes [id number] .25mg INJECT Un flip 0.25 mg or 5-13 0.25 MG ity of 0.5 mg(2 00:00: [place] mg/1.5 mL) 00 SKIN Medical PnIj WEEKLY. Branch semaglutide Yes [id number] .25mg inject Univers (OZEMPIC) 5-11 0.25 mg ity of 0.25 mg [place] 00:00: [place] 0.[place] mg(2 00 skin Medical mg/1.5 mL) weekly. Branch PnIj semaglutide 2021- No [id number] .25mg inject Univers (OZEMPIC) 5-11 05-13 0.25 mg ity of 0.25 mg or 00:00: 00:00 under the [place] 0.5 mg(2 00 :00 skin Medical mg/1.5 mL) weekly. Branch PnIj semaglutide 2021- No [id number] .25mg inject Univers (OZEMPIC) 3- 05-31 0.25 mg ity of 0.25 mg or 00:00: 04:59 under the [place] 0.5 mg(2 00 :00 skin Medical mg/1.5 mL) weekly for [facility] PnIj 90 days. semaglutide 2021- No [id number] .25mg inject Univers (OZEMPIC) 3-11 0.25 mg ity of 0.25 mg or 00:00: 00:00 under the [place] 0.5 mg(2 00 :00 skin Medical mg/1.5 mL) weekly for [facility] PnIj 90 days. metformin No [id number] 500mg Take 1 Univers ER 500 mg 2-16 05-18 tablet by ity of 24 hr 00:00: 04:59 mouth [place] tablet 00 :00 daily for Medical 90 days. Branch atorvastati 2021- No [id number] 40mg Take 1 Univers n 40 mg 2-16 05-18 tablet by ity of tablet 00:00: 04:59 mouth at [place] 00 :00 bedtime Medical for 90 Branch days. lisinopriL 2021- No [id number] 20mg Take 1 Univers 20 mg 2-16 05-18 tablet by ity of tablet 00:00: 04:59 mouth [place] 00 :00 daily for Medical 90 days. Branch metformin No [id number] 500mg Take 1 Univers ER 500 mg 2-16 05-18 tablet by ity of 24 hr 00:00: 04:59 mouth [place] tablet 00 :00 daily for Medical 90 days. Branch atorvastati 2021- No [id number] 40mg Take 1 Univers n 40 mg 2-16 05-18 tablet by ity of tablet 00:00: 04:59 mouth at [place] 00 :00 bedtime Medical for 90 Branch days. lisinopriL 2021- No [id number] 20mg Take 1 Univers 20 mg 2-16 05-18 tablet by ity of tablet 00:00: 04:59 mouth [place] 00 :00 daily for Medical 90 days. Branch metformin 2021- No [id number] 500mg Take 1 Univers ER 500 mg 2-16 05-18 tablet by ity of 24 hr 00:00: 04:59 mouth [place] tablet 00 :00 daily for Medical 90 days. Branch atorvastati 2021- No [id number] 40mg Take 1 Univers n 40 mg 2-16 05-18 tablet by ity of tablet 00:00: 04:59 mouth at [place] 00 :00 bedtime Medical for 90 Branch days. lisinopriL 2021- No [id number] 20mg Take 1 Univers 20 mg 2-16 05-18 tablet by ity of tablet 00:00: 04:59 mouth [place] 00 :00 daily for Medical 90 days. Branch metformin 2021- No [id number] 500mg Take 1 Univers ER 500 mg 2-16 05-18 tablet by ity of 24 hr 00:00: 04:59 mouth [place] tablet 00 :00 daily for Medical 90 days. [place] atorvastati 2021- No [id number] 40mg Take 1 Univers n 40 mg 2-16 05-18 tablet by ity of tablet 00:00: 04:59 mouth at [place] 00 :00 bedtime Medical for 90 Branch days. lisinopriL 2021- No [id number] 20mg Take 1 Univers 20 mg 2-16 05-18 tablet by ity of tablet 00:00: 04:59 mouth [place] 00 :00 daily for Medical 90 days. [place] metformin 2021- No [id number] 500mg Take 1 Univers ER 500 mg 2-16 05-18 tablet by ity of 24 hr 00:00: 04:59 mouth [place] tablet 00 :00 daily for Medical 90 days. [place] atorvastati 2021- No [id number] 40mg Take 1 Univers n 40 mg 2-16 05-18 tablet by ity of tablet 00:00: 04:59 mouth at [place] 00 :00 bedtime Medical for 90 Branch days. lisinopriL 2021- No [id number] 20mg Take 1 Univers 20 mg 2-16 05-18 tablet by ity of tablet 00:00: 04:59 mouth [place] 00 :00 daily for Medical 90 days. Branch metformin 2021- No [id number] 500mg Take 1 Univers ER 500 mg 2-16 05-18 tablet by ity of 24 hr 00:00: 04:59 mouth [place] tablet 00 :00 daily for Medical 90 days. [place] atorvastati 2021- No [id number] 40mg Take 1 Univers n 40 mg 2-16 05-18 tablet by ity of tablet 00:00: 04:59 mouth at [place] 00 :00 bedtime Medical for 90 Branch days. lisinopriL 2021- No [id number] 20mg Take 1 Univers 20 mg 2-16 05-18 tablet by ity of tablet 00:00: 04:59 mouth [place] 00 :00 daily for Medical 90 days. [place] metformin 2021- No [id number] 500mg Take 1 Univers ER 500 mg 2-16 05-18 tablet by ity of 24 hr 00:00: 04:59 mouth [place] tablet 00 :00 daily for Medical 90 days. [place] atorvastati 2021- No [id number] 40mg Take 1 Univers n 40 mg 2-16 05-18 tablet by ity of tablet 00:00: 04:59 mouth at [place] 00 :00 bedtime Medical for 90 Branch days. lisinopriL 2021- No [id number] 20mg Take 1 Univers 20 mg 2-16 05-18 tablet by ity of tablet 00:00: 04:59 mouth [place] 00 :00 daily for Medical 90 days. [place] metformin 2021- No [id number] 500mg Take 1 Univers ER 500 mg 2-16 05-18 tablet by ity of 24 hr 00:00: 04:59 mouth [place] tablet 00 :00 daily for Medical 90 days. [place] atorvastati 2021- No [id number] 40mg Take 1 Univers n 40 mg 2-16 05-18 tablet by ity of tablet 00:00: 04:59 mouth at [place] 00 :00 bedtime Medical for 90 Branch days. lisinopriL 2021- No [id number] 20mg Take 1 Univers 20 mg 2-16 05-18 tablet by ity of tablet 00:00: 04:59 mouth [place] 00 :00 daily for Medical 90 days. [place] metformin 2021- No [id number] 500mg Take 1 Univers ER 500 mg 2-16 05-18 tablet by ity of 24 hr 00:00: 04:59 mouth [place] tablet 00 :00 daily for Medical 90 days. [place] atorvastati 2021- No [id number] 40mg Take 1 Univers n 40 mg 2-16 05-18 tablet by ity of tablet 00:00: 04:59 mouth at [place] 00 :00 bedtime Medical for 90 Branch days. lisinopriL 2021- No [id number] 20mg Take 1 Univers 20 mg 06-2318 tablet by ity of tablet 00:00: 04:59 mouth [place] 00 :00 daily for Medical 90 days. Branch bromphenira 2021- No [id number] 10mL Take 10 mL Univers mine-pseudo 06-23 by mouth 4 i ty of ephedrine-D 00:00: 05:59 (four) Al[place] as M (BROMFED 00 :00 times Medical DM) 2-30-10 daily as Bran ch mg/5 mL needed for syrup Congestion /Allergies for up to 10 days. bromphenira 2021-2021- No [id number] 10mL Take 10 mL Univers mine-pseudo 06-23 by mouth 4 i ty of ephedrine-D 00:00: 05:59 (four) Alfa as M (BROMFED 00 :00 times Medical DM) 2-30-10 daily as Bran ch mg/5 mL needed for syrup Congestion /Allergies for up to 10 days. bromphenira 2021- No [id number] 10mL Take 10 mL Univers mine-pseudo 06-23 by mouth 4 i ty of ephedrine-D 00:00: 05:59 (four) Alfa as M (BROMFED 00 :00 times Medical DM) 2-30-10 daily as Bran ch mg/5 mL needed for syrup Congestion /Allergies for up to 10 days. bromphenira 2021-0 2021- No [id number] 10mL Take 10 mL Univers mine-pseudo 06-23 by mouth 4 i ty of ephedrine-D 00:00: 05:59 (four) Alfa as M (BROMFED 00 :00 times Medical DM) 2-30-10 daily as Bran ch mg/5 mL needed for syrup Congestion /Allergies for up to 10 days. bromphenira 2021-0 2021- No [id number] 10mL Take 10 mL Univers mine-pseudo 06-23 by mouth 4 i ty of ephedrine-D 00:00: 05:59 (four) Alfa as M (BROMFED 00 :00 times Medical DM) 2-30-10 daily as Bran ch mg/5 mL needed for syrup Congestion /Allergies for up to 10 days. pantoprazol 2022-0 Yes 40mg Take 40 mg Univers e 40 mg EC 1-02 by mouth ity o f tablet 12:16: daily. [address] pantoprazol 0 Yes 40mg Take 40 mg Univers e 40 mg EC 1-02 by mouth ity o f tablet 12:16: daily. [address] pantoprazol 0 Yes 40mg Take 40 mg Univers e 40 mg EC 1-02 by mouth ity o f tablet 12:16: daily. [address] pantoprazol 0 Yes 40mg Take 40 mg Univers e 40 mg EC 1-02 by mouth ity o f tablet 12:16: daily. [address] pantoprazol 0 Yes 40mg Take 40 mg Univers e 40 mg EC 1-02 by mouth ity o f tablet 12:16: daily. [address] pantoprazol Yes 40mg Take 40 mg Univers e 40 mg EC 1-02 by mouth ity o f tablet 12:16: daily. [address] atorvastati 0 Yes 40mg Take 40 mg Univers n 40 mg 1-02 by mouth ity of tablet 12:15: at [place] [address] bedtime. [facility] atorvastati 0 Yes 40mg Take 40 mg Univers n 40 mg 1-02 by mouth ity of tablet 12:15: at [place] [address] bedtime. [facility] atorvastati 0 Yes 40mg Take 40 mg Univers n 40 mg 1-02 by mouth ity of tablet 12:15: at [place] [address] bedtime. [facility] lisinopriL 0 Yes 20mg Take 20 mg U nivers 20 mg 1-02 by mouth ity of tablet 12:14: daily. [address] lisinopriL 0 Yes 20mg Take 20 mg U nivers 20 mg 1-02 by mouth ity of tablet 12:14: daily. [address] lisinopriL 0 Yes 20mg Take 20 mg U nivers 20 mg 1-02 by mouth ity of tablet 12:14: daily. [address] metFORMIN 0 Yes 500mg Take 500 Uni vers 500 mg 1-02 mg by ity of tablet 12:14: mouth. [address] metFORMIN 2021-0 Yes 500mg Take 500 Uni vers 500 mg 1-02 mg by ity of tablet 12:14: mouth. [address] metFORMIN 2021-0 Yes 500mg Take 500 Uni vers 500 mg 1-02 mg by ity of tablet 12:14: mouth. [address] metFORMIN 2021-0 Yes 500mg Take 500 Uni vers 500 mg 1-02 mg by ity of tablet 12:14: mouth. [address] metFORMIN 2021-0 Yes 500mg Take 500 Uni vers 500 mg 1-02 mg by ity of tablet 12:14: mouth. [address] metFORMIN 2021-0 Yes 500mg Take 500 Uni vers 500 mg 1-02 mg by ity of tablet 12:14: mouth. [address] pantoprazol 2020-05 Yes 40mg Take 40 mg Univers e 40 mg EC 1-27 by mouth ity o f tablet 00:00: daily. [address] pantoprazol 2020-05 Yes 40mg Take 40 mg Univers e 40 mg EC 1-27 by mouth ity o f tablet 00:00: daily. [address] pantoprazol 2020-05 Yes 40mg Take 40 mg Univers e 40 mg EC 1-27 by mouth ity o f tablet 00:00: daily. [address] pantoprazol 2020-05 Yes 40mg Take 40 mg Univers e 40 mg EC 1-27 by mouth ity o f tablet 00:00: daily. [address] pantoprazol 2020-05 Yes 40mg Take 40 mg Univers e 40 mg EC 1-27 by mouth ity o f tablet 00:00: daily. [address] pantoprazol 2020-05 Yes 40mg Take 40 mg Univers e 40 mg EC 1-27 by mouth ity o f tablet 00:00: daily. [address] pantoprazol 2020-05 Yes 40mg Take 40 mg Univers e 40 mg EC 1-27 by mouth ity o f tablet 00:00: daily. [address] pantoprazol 2020-05 Yes 40mg Take 40 mg Univers e 40 mg EC 1-27 by mouth ity o f tablet 00:00: daily. [address] pantoprazol 2020-05 Yes 40mg Take 40 mg Univers e 40 mg EC 1-27 by mouth ity o f tablet 00:00: daily. [address] pantoprazol 2020-05 Yes 40mg Take 40 mg Univers e 40 mg EC 06-03 by mouth ity o f tablet 00:00: daily. [address] pantoprazol 2020-05 Yes 40mg Take 40 mg Univers e 40 mg EC 06-03 by mouth ity o f tablet 00:00: daily. [address] pantoprazol 2020-05 Yes 40mg Take 40 mg Univers e 40 mg EC 06-03 by mouth ity o f tablet 00:00: daily. [address] metformin 2020-05- No 500mg Take 500 Un flip ER 500 mg 06-0316 mg by ity of 24 hr 00:00: 00:00 mouth [place] tablet 00 :00 daily. [facility] atorvastati 2020-05- No 40mg Take 40 mg Univers n 40 mg 06-03 by mouth ity of tablet 00:00: 00:00 at [place] 00 :00 bedtime. [facility] lisinopriL 2020-05- No 20mg Take 20 mg Univers 20 mg 06-03 by mouth ity of tablet 00:00: 00:00 daily. [place] [address] Immunizations Ordered Filled Date Status Comments Source Immunization Name Immunization Name TDAP 2021-07-06 Completed [facility] 00:00:00 [facility] TDAP 2021-07-06 Completed [facility] 00:00:00 [facility] TDAP 2021-07-06 Completed [facility] 00:00:00 [facility] TDAP 2021-07-06 Completed [facility] 00:00:00 [facility] TDAP 2021-07-06 Completed [facility] 00:00:00 [facility] Tdap- (Boostrix, 2021-07-06 Completed Cherise tejada - Adacel) 00:00:00 External Tdap- (Boostrix, 2021-07-06 Completed Cherise tejada - Leilacel) 00:00:00 External Tdap- (Boostrix, 2021-07-06 Completed Cherise tejada - Carlos) 00:00:00 External Tdap- (Boostrix, 2021-07-06 Completed Cherise tejada - Adacel) 00:00:00 External Tdap- (Boostrix, 2021-07-06 Completed Cherise S eybold - Adacel) 00:00:00 External TDAP Unknown Completed [facility] TDAP Unknown Completed [facility] Tdap- (Boostrix, Unknown Completed Cherise Patel eybold - Adacel) External Tdap- (Boostrix, Unknown Completed Cherise Patel eybold - Adacel) External Tdap- (Boostrix, Unknown Completed Cherise Patel eybold - Adacel) External Vital Signs Vital Name Observation Time Observation Value Comments Source Systolic blood 2023-03-15 17:32:00 137 mm[Hg] Cherise Seybold - pressure External Diastolic blood 2023-03-15 17:32:00 87 mm[Hg] Betose y Seybold - pressure External Heart rate 2023-03-15 17:32:00 113 /min Cherise zavalabold - External Body temperature 2023-03-15 17:32:00 37.89 Aaliyah Chel zavala Seybold - External Respiratory rate 2023-03-15 17:32:00 15 /min Chel zavala Seybold - External Body height 2023-03-15 17:32:00 157.5 cm Cherise zavalabold - External Body weight 2023-03-15 17:32:00 81.194 kg Cherise zavalabold - External BMI 2023-03-15 17:32:00 32.74 kg/m2 Cherise zavalabold - External Oxygen saturation in 2023-03-15 17:32:00 99 /min Cherise Ghoshgabimerlin - Arterial blood by External Pulse oximetry Systolic blood 2023-01-25 16:14:00 138 mm[Hg] Cherise Seybold - pressure External Diastolic blood 2023-01-25 16:14:00 82 mm[Hg] Betose y Seybold - pressure External Heart rate 2023-01-25 16:14:00 98 /min Cherise zavalabold - External Body temperature 2023-01-25 16:14:00 36.72 Aaliyah Chel zavala Seybold - External Respiratory rate 2023-01-25 16:14:00 20 /min Chel zavala Seybold - External Body height 2023-01-25 16:14:00 157.5 cm Cherise Patel eybold - External Body weight 2023-01-25 16:14:00 85.049 kg Cherise Patel eybold - External BMI 2023-01-25 16:14:00 34.29 kg/m2 Cherise Patel eybold - External Systolic blood 2022-09-09 13:48:00 150 mm[Hg] Cherise Seybold - pressure External Diastolic blood 2022-09-09 13:48:00 89 mm[Hg] Betose y Seybold - pressure External Heart rate 2022-09-09 13:48:00 69 /min Cherise Patel eybold - External Body temperature 2022-09-09 13:48:00 36.72 Aaliyah Chel ey Seybold - External Respiratory rate 2022-09-09 13:48:00 16 /min Chel ey Seybold - External Body height 2022-09-09 13:48:00 157.5 cm Cherise Patel eybold - External Body weight 2022-09-09 13:48:00 77.565 kg Cherise Patel eybold - External BMI 2022-09-09 13:48:00 31.28 kg/m2 Cherise Patel eybold - External HEIGHT 2022-08-10 11:00:00 157.5 cm WEIGHT 2022-08-10 11:00:00 76.613 kg HEIGHT 2022-08-01 10:37:00 157.5 cm WEIGHT 2022-08-01 10:37:00 77.565 kg HEIGHT 2022-08-10 11:00:00 157.5 cm WEIGHT 2022-08-10 11:00:00 76.613 kg HEIGHT 2022-08-01 10:37:00 157.5 cm WEIGHT 2022-08-01 10:37:00 77.565 kg Systolic blood 2022-07-29 20:54:00 138 mm[Hg] Cherise Seybold - pressure External Diastolic blood 2022-07-29 20:54:00 93 mm[Hg] Betose y Seybold - pressure External Heart rate 2022-07-29 20:54:00 97 /min Cheirse Patel eybold - External Body temperature 2022-07-29 20:54:00 36.56 Aaliyah Chel ey Seybold - External Respiratory rate 2022-07-29 20:54:00 14 /min Chel ey Seybold - External Body height 2022-07-29 20:54:00 157.5 cm Cherise Patel eybold - External Body weight 2022-07-29 20:54:00 77.565 kg Cherise Patel eybold - External BMI 2022-07-29 20:54:00 31.28 kg/m2 Cherise Patel eybold - External Oxygen saturation in 2022-07-29 20:54:00 99 /min Cherise Seybold - Arterial blood by External Pulse oximetry Systolic blood 2022-07-26 19:57:00 128 mm[Hg] Cherise Seybold - pressure External Diastolic blood 2022-07-26 19:57:00 80 mm[Hg] eBtose y Seybold - pressure External Heart rate 2022-07-26 19:57:00 90 /min Cherise Patel eybold - External Body temperature 2022-07-26 19:57:00 36.83 Aaliyha Chel ey Seybold - External Respiratory rate 2022-07-26 19:57:00 18 /min Chel ey Seybold - External Body height 2022-07-26 19:57:00 157.5 cm Cherise Patel eybold - External Body weight 2022-07-26 19:57:00 77.565 kg Cherise Patel eybold - External BMI 2022-07-26 19:57:00 31.28 kg/m2 Cherise Patel eybold - External HEIGHT 2022-07-12 14:28:00 157.5 cm WEIGHT 2022-07-12 14:28:00 78.019 kg HEIGHT 2022-07-12 14:28:00 157.5 cm WEIGHT 2022-07-12 14:28:00 78.019 kg Systolic blood 2022-06-21 17:20:00 129 mm[Hg] Cherise Seybold - pressure External Diastolic blood 2022-06-21 17:20:00 83 mm[Hg] Betose y Seybold - pressure External Heart rate 2022-06-21 17:20:00 83 /min Cherise S eybold - External Body temperature 2022-06-21 17:20:00 36.56 Aaliyah Chel ey Seybold - External Respiratory rate 2022-06-21 17:20:00 16 /min Chel ey Seybold - External Body height 2022-06-21 17:20:00 157.5 cm Cherise Patel eybold - External Body weight 2022-06-21 17:20:00 75.297 kg Cherise Patel eybold - External BMI 2022-06-21 17:20:00 30.36 kg/m2 Cherise S eybold - External Oxygen saturation in 2022-06-21 17:20:00 98 /min Cherise Seybold - Arterial blood by External Pulse oximetry Systolic blood 2022-06-17 22:02:00 134 mm[Hg] Cherise Seybold - pressure External Diastolic blood 2022-06-17 22:02:00 84 mm[Hg] Garth y Seybold - pressure External Heart rate 2022-06-17 22:02:00 92 /min Cherise Patel eybold - External Body temperature 2022-06-17 22:02:00 36.78 Aaliyah Chel zavala Seybold - External Respiratory rate 2022-06-17 22:02:00 18 /min Chel zavala Seybold - External Body height 2022-06-17 22:02:00 157.5 cm Cherise Patel eybold - External Body weight 2022-06-17 22:02:00 79.833 kg Cherise Patel eybold - External BMI 2022-06-17 22:02:00 32.19 kg/m2 Cherise Patel eybold - External Oxygen saturation in 2022-06-17 22:02:00 97 /min Cherise Ghoshybmerlin - Arterial blood by External Pulse oximetry WEIGHT 2022-06-11 00:48:00 78.1 kg HEIGHT 2022-06-10 12:03:00 157.5 cm WEIGHT 2022-06-10 12:03:00 79.833 kg WEIGHT 2022-06-11 00:48:00 78.1 kg HEIGHT 2022-06-10 12:03:00 157.5 cm WEIGHT 2022-06-10 12:03:00 79.833 kg Systolic blood 2021-06-23 19:43:00 122 mm[Hg] Univer sity of pressure [facility] Diastolic blood 2021-06-23 19:43:00 86 mm[Hg] Unive rsity of [facility] Heart rate 2021-06-23 19:11:00 97 /min [facility] Body temperature 2021-06-23 19:11:00 36.56 [facility] 2021-06-23 19:11:[address] [facility] Body weight 2021-06-23 19:11:[address] [facility] BMI 2021-06-23 19:11:00 33.11 kg/m2 [facility] Oxygen saturation in 2021-06-23 19:11:00 97 /min [facility] Arterial blood by [facility] Pulse oximetry Branch Procedures This patient has no known procedures. Plan of Care Planned Activity Planned Date Details Comments Source Encounters Start End Encounter Admission Attending Care Care Encounter Source Date/Time Date/Time Type Type Clinicians Facility Department ID 2023-11-21 2023-11-21 Outpatient OZIEL ERWIN [id number] Cherise 10:00:00 10:00:00 Seybol d 2023-04-12 2023-04-12 Outpatient CHERISE QUEZADA [id number] Cherise 11:30:00 11:30:00 SHARMAINE Seybol d 2023-03-17 2023-03-17 Outpatient OZIEL ERWIN [id number] Cherise 09:00:00 09:00:00 Seybol d 2023-03-15 2023-03-15 Outpatient CHERISE DORANTES [id number] Cherise 11:30:00 11:30:00 SLICK Seybol d 2023-03-13 2023-03-14 Emergency ER [facility] [id number] [facility] 14:29:00 02:55:00 DOMINGUEZ 2023-03-13 2023-03-13 Emergency EL TORRI [facility] [id number] [facility] 22:46:09 22:46:09 JESSICA 2023-03-13 2023-03-13 Emergency CRISTOPHER WILD [facility] [id number] [facility] 20:48:52 20:48:52 JESSICA 2023-03-10 2023-03-10 Outpatient CHERISE LYNN [id number] Cherise 11:15:00 11:15:00 Seybol d 2023-03-10 2023-03-10 Outpatient CHERISE LYNN [id number] Cherise 10:00:00 10:00:00 Seybol d 2023-02-24 2023-02-24 Outpatient PREROSE CHERISE LYNN [id number] Cherise 10:45:00 10:45:00 SLICK Seybol d 2023-02-01 2023-02-01 Outpatient PREROSE CHERISE LYNN [id number] Cherise 00:00:00 00:00:00 SLICK Seybol d 2023-01-26 2023-01-26 Outpatient PREROSE CHERISE LYNN [id number] Cherise 00:00:00 00:00:00 SLICK Seybol d 2023-01-25 2023-01-25 Outpatient LAB90 CHERISE LYNN [id number] Cherise 12:15:00 12:15:00 Seybol d 2023-01-25 2023-01-25 Outpatient JOSE E CHERISE LYNN [id number] Cherise 11:30:00 11:30:00 SLICK Seybol d 2022-11-27 2022-11-27 Outpatient RIP, OZIEL LYNN [id number] Cherise 00:00:00 00:00:00 Seybol d 2022-11-27 2022-11-27 Outpatient OZIEL ERWIN CHERISE LYNN [id number] Cherise 00:00:00 00:00:00 Seybol d 2022-11-25 2022-11-25 Outpatient CHERISE LYNN [id number] Cherise 14:00:00 14:00:00 Seybol d 2022-11-18 2022-11-18 Outpatient RIP OZIEL LYNN [id number] Cherise 00:00:00 00:00:00 Seybol d 2022-11-16 2022-11-16 Outpatient RIPOZIEL Wheeler [id number] Cherise 00:00:00 00:00:00 Seybol d 2022-10-21 2022-10-21 Outpatient RIPOZIEL Wheeler [id number] Cherise 08:50:00 08:50:00 Seybol d 2022-10-18 2022-10-18 Outpatient RIP, OZIEL CHERISE LYNN [id number] Cherise 00:00:00 00:00:00 Seybol d 2022-10-17 2022-10-17 Outpatient CHERISE LYNN [id number] Cherise 10:30:00 10:30:00 Seybol d 2022-09-28 2022-09-28 Outpatient PREZACHERISE Patel [id number] Cherise 00:00:00 00:00:00 SLICK Seybol d 2022-09-20 2022-09-20 Outpatient RIP, OZIEL LYNN [id number] Cherise 00:00:00 00:00:00 Seybol d 2022-09-09 2022-09-09 Outpatient CHERISE LYNN [id number] Cherise 14:00:00 14:00:00 Seybol d 2022-09-09 2022-09-09 Outpatient RIP, OZIEL LYNN [id number] Cherise 08:30:00 08:30:00 Seybol d 2022-08-17 2022-08-17 Outpatient PREZAS, CHERISE LYNN [id number] Cherise 16:00:00 16:00:00 SLICK Seybol d 2022-08-12 2022-08-12 Outpatient IVT, FABIO LYNN [id number] Cherise 14:45:00 14:45:00 Seybol d 2022-08-12 2022-08-12 Outpatient TRACEY RICHARD [id number] Cherise 10:00:00 10:00:00 Seybol d 2022-08-12 2022-08-12 Outpatient CHERISE CHIN [id number] Cherise 00:00:00 00:00:00 SERAFIN Seybol d 2022-08-10 2022-08-11 Outpatient RIPOZIEL [facility] [id number] SLE 09:48:00 16:00:00 2022-08-11 2022-08-11 Outpatient RIPOZIEL Wheeler [id number] Cherise 00:00:00 00:00:00 Seybol d 2022-08-11 2022-08-11 Outpatient RIPOZIEL Wheeler [id number] Cherise 00:00:00 00:00:00 Seybol d 2022-08-11 2022-08-11 Outpatient OZIEL ERWIN CHERISE LYNN [id number] Cherise 00:00:00 00:00:00 Seybol d 2022-08-11 2022-08-11 Outpatient RIPOZIEL Wheeler CHERISE LYNN [id number] Cherise 00:00:00 00:00:00 Seybol d 2022-08-10 2022-08-10 Outpatient RIPOZIEL Wheeler CHERISE LYNN [id number] Cherise 12:00:00 12:00:00 Seybol d 2022-08-05 2022-08-05 Outpatient TRACEY RICHARD [id number] Cherise 09:45:00 09:45:00 Seybol d 2022-08-05 2022-08-05 Outpatient CHERISE MANCIA [id number] Cherise 00:00:00 00:00:00 JERRI Seybo ld 2022-08-05 2022-08-05 Outpatient CHERISE DORANTES [id number] Cherise 00:00:00 00:00:00 SLICK Seybol d 2022-08-03 2022-08-03 Outpatient LAB90 CHERISE LYNN [id number] Cherise 08:00:00 08:00:00 Seybol d 2022-08-02 2022-08-02 Outpatient CHERISE DORANTES [id number] Cherise 00:00:00 00:00:00 SLICK Seybol d 2022-08-01 2022-08-01 Outpatient EL [facility] [id number] [facility] 10:58:07 23:59:00 2022-07-29 2022-07-29 Outpatient CHERISE DORANTES [id number] Cherise 16:30:00 16:30:00 SLICK Seybol d 2022-07-29 2022-07-29 Outpatient TRACEY RICHARD [id number] Cherise 15:30:00 15:30:00 Seybol d 2022-07-26 2022-07-26 Outpatient CHERISE MANCIA [id number] Cherise 15:40:00 15:40:00 JERRI Seybo ld 2022-07-26 2022-07-26 Outpatient OZIEL ERWIN CHERISE LYNN [id number] Cherise 15:10:00 15:10:00 Seybol d 2022-07-25 2022-07-25 Outpatient ALEX EASLEY CHERISE LYNN [id number] Cherise 00:00:00 00:00:00 Seybol d 2022-07-12 2022-07-22 Inpatient ER KAUSHALALEX HOWELL [facility] 20 [id number] [facility] 14:32:00 20:00:00 2022-07-22 2022-07-22 Outpatient CHERISE LOCKE [id number] Cherise 00:00:00 00:00:00 PRANAV Seybo ld 2022-07-21 2022-07-21 Outpatient OZIEL ERWIN [id number] Cherise 00:00:00 00:00:00 Seybol d 2022-07-21 2022-07-21 Outpatient CHERISE DORANTES [id number] Cherise 00:00:00 00:00:00 SLICK Seybol d 2022-07-19 2022-07-19 Outpatient CHERISE DORANTES [id number] Cherise 08:15:00 08:15:00 SLICK Seybol d 2022-07-19 2022-07-19 Outpatient CHERISE LOCKE [id number] Cherise 00:00:00 00:00:00 PRANAV Seybo ld 2022-07-12 2022-07-12 Outpatient CHERISE LYNN [id number] Cherise 13:00:00 13:00:00 Seybol d 2022-07-12 2022-07-12 Outpatient PREZACHERISE Patel [id number] Cherise 00:00:00 00:00:00 SLICK Seybol d 2022-07-12 2022-07-12 Outpatient PRECHERISE ROSE [id number] Cherise 00:00:00 00:00:00 SLICK Seybol d 2022-07-12 2022-07-12 Outpatient OZIEL ERWIN [id number] Cherise 00:00:00 00:00:00 Seybol d 2022-07-12 2022-07-12 Outpatient THANICOLECrys CHERISE LYNN [id number] Cherise 00:00:00 00:00:00 ALEX Seybol d 2022-07-10 2022-07-10 Outpatient OZIEL ERWIN CHERISE LYNN [id number] Cherise 00:00:00 00:00:00 Seybol d 2022 2022 Outpatient CHERISE LYNN [id number] Cherise 14:00:00 14:00:00 Seybol d 2022 2022 Outpatient CHERISE CHIN [id number] Cherise 00:00:00 00:00:00 SERAFIN Seybol d 2022-07-06 2022-07-06 Outpatient CHERISE DORANTES [id number] Cherise 00:00:00 00:00:00 SLICK Seybol d 2022-07-01 2022-07-01 Outpatient LAB90 CHERISE LYNN [id number] Cherise 08:10:00 08:10:00 Seybol d 2022-06-27 2022-06-27 Outpatient CHERISE CHIN [id number] Cherise 00:00:00 00:00:00 SERAFIN Seybol d 2022-06-27 2022-06-27 Outpatient CHERISE DORANTES [id number] Cherise 00:00:00 00:00:00 SLICK Seybol d 2022-06-21 2022-06-21 Outpatient CHERISE DORANTES [id number] Cherise 11:30:00 11:30:00 SLICK Seybol d 2022-06-20 2022-06-20 Outpatient AHANN CARNEY CHERISE LYNN [id number] Cherise 10:00:00 10:00:00 Seybol d 2022-06-17 2022-06-17 Outpatient OZIEL ERWIN CHERISE LYNN [id number] Cherise 16:00:00 16:00:00 Seybol d 2022-06-15 2022-06-15 Outpatient CHERISE MARY [id number] Cherise 00:00:00 00:00:00 AFFILIATE Seyb old 2022-06-10 2022-06-14 Inpatient ER ADIO, [facility] [id number] SLE 09:42:00 13:12:00 TITILOLA 2022-06-14 2022-06-14 Outpatient CHERISE KEITH [id number] Cherise 00:00:00 00:00:00 JOIZABELLAD Seybol d 2022-06-14 2022-06-14 Outpatient CHERISE KEITH [id number] Cherise 00:00:00 00:00:00 JONARD Seybol d 2022-06-14 2022-06-14 Outpatient CHERISE KEITH [id number] Cherise 00:00:00 00:00:00 JONARD Seybol d 2022-06-13 2022-06-13 Outpatient CHERISE DELUCA [id number] Cherise 00:00:00 00:00:00 NARCISO Seybol d 2022-06-09 2022-06-10 Emergency Emergency Sonier, MCSETXm MCSETXm [id number] MCSETXm 22:39:00 07:33:00 Sharmaine 80 2022-06-09 2022-06-09 Emergency Emergency Sonier, MCSETXm MCSETXm [id number] MCSETXm 22:39:00 22:39:00 Sharmaine 80 2022-06-09 2022-06-09 Outpatient CHERISE DORANTES [id number] Cherise 11:00:00 11:00:00 SLICK Seybol d 2022-05-25 2022-05-25 Outpatient CHERISE DORANTES [id number] Cherise 11:00:00 11:00:00 SLICK Seybol d 2022-04-14 2022-04-14 Outpatient EL DIRECT CHRIST CHRIST [id number] CHRISTU 11:16:00 11:16:00 ACCESS [id number] S TESTING, Health ST. 2022-03-04 2022-03-04 Suad Cooper [facility] 1.2.840.114 [id number] Univers 00:00:00 00:00:00 [facility] [id number] it y of [place] 4.2.7.2.686 Alfa as JAMES?BLEA [phone] Nc kary MITCHELL [address] [place] [address] MEDICAL OFFICE [facility] 2021-09-20 2021-09-20 Outpatient R JENNSunny [facility] [id number] Univers 11:00:00 11:00:00 SAÚL schaeffer [facility] 2021-09-16 2021-09-16 [facility] 1.2.840.114 [id number] Univers 00:00:00 00:00:00 Saúl HEALTH 350.1.13.10 it y of [place] 4.2.7.2.686 Alfa as JAMES?BLEA [phone] Nc kary MITCHELL [address] [place] [address] MEDICAL OFFICE [facility] 2021-09-16 2021-09-16 Gabrielle [facility] [id number] Univers 00:00:00 00:00:00 Saúl HEALTH 350.1.13.10 it y of [place] 4.2.7.2.686 Alfa as AJMES?BLEA [id number] Nc kary MITCHELL [address] [place] [address] OFFICE [facility] 2021-09-14 2021-09-14 Refeast [facility] 1.2.840.114 [id number] Univers 00:00:00 00:00:00 Saúl HEALTH 350.1.13.10 it y of [place] 4.2.7.2.686 Alfa as JAMES?BLEA [phone] Nc kary MITCHELL [address] [place] [address] OFFICE [facility] 2021-09-06 2021-09-06 Outpatient R KENNETH [facility] [id number] Univers 11:00:00 11:00:00 SAÚL doreenomayra [facility] 2021-09-06 2021-09-06 Outpatient R KENNETH [facility] [id number] Univers 11:00:00 11:00:00 SAÚL laury [facility] 2021-07-28 2021-07-28 Patient Doctor HUONG 1.2.840.114 [id number] Univers 00:00:00 00:00:00 Secure Msg Unassigned, ALLAN 350.1.13.10 ity of [place] [facility] 4.2.7.2.686 Alfa as [phone] [address] 2021-07-16 2021-07-16 Outpatient R KENNETH [facility] [id number] Univers 16:07:32 23:59:00 SAÚL schaeffer [facility] 2021-07-16 2021-07-16 [facility] 1.2.840.114 [id number] Univers 16:07:32 23:59:00 Encounter Saúl LYONS 350.1.13.10 ity of [place] 4.2.7.2.686 [facility] [id number] [facility] [address] [place] 2021-07-12 2021-07-12 Patient Doctor HUONG 1.2.840.114 [id number] Univers 00:00:00 00:00:00 Secure Msg Unassigned, ALLAN 350.1.13.10 [facility] 4.2.7.2.686 Alfa as [phone] [address] 2021-07-07 2021-07-07 Outpatient R KENNETH [facility] [id number] Univers 14:00:00 14:00:00 SAÚL schaeffer [facility] 2021-07-07 2021-07-07 [facility] [id number] Univers 09:15:00 09:15:00 SAÚL schaeffer [facility] 2021-07-06 2021-07-06 [facility] [id number] Univers 16:30:00 17:19:26 SAÚLJEANNIE schaeffer [facility] 2021-06-28 2021-06-28 Outpatient Balbina COOPER [facility] [id number] Univers 14:00:00 14:00:00 SAÚL schaeffer [facility] 2021-06-25 2021-06-25 Telephone [facility] [id number] Univers 00:00:00 00:00:00 Saúl ROMAN 350.1.13.10 it y of [place] 4.2.7.2.686 Alfa as JAMES?BLEA [phone] Nc kary [address] MEDICAL OFFICE BUILDING 2021-06-25 2021-06-25 Telephone Kenneth [facility] [id number] Univers 00:00:00 00:00:00 Saúl ROMAN 350.1.13.10 [facility] 4.2.7.2.686 Alfa as JAMES?BLEA [phone] Nc kary [address] MEDICAL OFFICE BUILDING 2021-06-24 2021-06-24 Telephone Kenneth [facility] [id number] Univers 00:00:00 00:00:00 Saúl HEALTH 350.1.13.10 it y of [place] 4.2.7.2.686 Alfa as JAMES?BLEA [id number] [address] MEDICAL OFFICE [facility] 2021-06-23 2021-06-23 Survey Project Manager Lab, Ang - Db [facility] 1.2.840.1 [id number] Univers 13:45:00 14:00:00 Visit Saúl Cooper 350.1.13.10 ity of [place] 4.2.7.2.686 Alfa as JAMES?BLEA [phone] Nc kary MITCHELL [address] MEDICAL OFFICE [facility] 2021-06-23 2021-06-23 Office Kenneth [facility] 1.2.840.114 [id number] Univers 13:00:00 13:46:44 Visit Saúl ROMAN 350.1.13.10 it y of [place] 4.2.7.2.686 Alfa as JAMES?BLEA [id number] [address] OFFICE [facility] 2021-06-23 2021-06-23 Outpatient R JENNSunny [facility] [id number] Univers 13:00:00 13:46:44 SAÚL loganomayra [facility] 2021-06-23 2021-06-23 Outpatient R JENNSunny [facility] [id number] Univers 13:00:00 13:46:44 SAÚL loganomayra [facility] 2021-06-23 2021-06-23 Orders Doctor BORJA 1.2.840.114 [id number] Univers 00:00:00 00:00:00 Only Unassigned, ALLAN 350.1.13.10 ity of [place] [facility] 4.2.7.2.686 Alfa as [phone] [address] 2021-05-09 2021-05-09 Outpatient Balbina SHEPARD [facility] [id number] Univers 11:40:00 12:45:15 SALOMON schaeffer [facility] 2017-08-29 2017-08-29 Outpatient Jr Elizabeth SETENT SETENT [id number] [place] 13:02:00 13:02:00 [facility] 2017-08-22 2017-08-22 Outpatient Jr Elizabeth, SETENT SETENT [id number] [place] 13:59:00 13:59:00 [facility] Results Test Description Test Time Test Comments Results Result Comments Source LACTIC ACID, VENOUS 2023-03-14 01:16:28 Test Item Value Reference Range Interpretation Comme nts LACTATE BLOOD VENOUS (2) 0.77 mmol/L 0.50-2.00 Spe cimen moderately hemolyzed (BEAKER) (test code = 2872) Tobacco Checkout Clerk ID - ADMINUS [id number] 00:40:07 [facility] 1965 Sex: FHISTORY : Right lower quadrant pain, evaluate for torsion COMPARISON : CT abdomen/pelvis from earlier 03/13/2023omment:Ultrasound examination of the pelvis was performed transabdominally andtransvaginally with grayscale, color Doppler, spectral interrogation. The uterus measures 9.6 x 4.6 x 5.2 cm. There is a calcified lesionidentified within the uterine body measuring approximately 3.3 x 2.5 x3.2 cmcompatible with a calcified fibroid. Incidentally noted is anabothian cysts within the cervix. The endometrial stripe measures 0.9cm in maximal thickness. Incidentally noted is a 0.8 x 1.0 x 1.0 cm cystwithin the endometrium.The right ovary measures 2.7 x 1.6 x 1.8 cm. Left ovary measures 2.7 x1.5 x 2.0 cm. Arterial and venous flow are preserved bilaterally. Noabnormal adnexal masses are identified.No free fluid is visualized within the pelvis.IMPRESSION :Stable calcified intrauterine fibroid.Upper normal endometrial thickness.Otherwise, unremarkable pelvic ultrasound examination.Electronically Signed By: Jorgito Mosher MD03/14/2023 00:42 CDTWorkstation Name: [id number] 00:40:07[facility] : 1965 Sex: FHISTORY : Right lower quadrant pain, evaluate for torsion COMPARISON : CT abdomen/pelvis from earlier 03/13/2023omment:Ultrasound examination of the pelvis was performed transabdominally andtransvaginally with grayscale, color Doppler, spectral interrogation. The uterus measures 9.6 x 4.6 x 5.2 cm. There is a calcified lesionidentified within the uterine body measuring approximately 3.3 x 2.5 x3.2 cmcompatible with a calcified fibroid. Incidentally noted is anabothian cysts within the cervix. The endometrial stripe measures 0.9cm in maximal thickness. Incidentally noted is a 0.8 x 1.0 x 1.0 cm cystwithin the endometrium.The right ovary measures 2.7 x 1.6 x 1.8 cm. Left ovary measures 2.7 x1.5 x 2.0 cm. Arterial and venous flow are preserved bilaterally. Noabnormal adnexal masses are identified.No free fluid is visualized within the pelvis.IMPRESSION :Stable calcified intrauterine fibroid.Upper normal endometrial thickness.Otherwise, unremarkable pelvic ultrasound examination.Electronically Signed By: Jorgito Mosher MD03/14/2023 00:42 CDTWorkstation Name: [id number] ENDOVAGINAL EV 2023-03-14 00:40:07 [facility] : 1965 Sex: FHISTORY : Right lower quadrant pain, evaluate for torsion COMPARISON : CT abdomen/pelvis from earlier 03/13/2023omment:Ultrasound examination of the pelvis was performed transabdominally andtransvaginally with grayscale, color Doppler, spectral interrogation. The uterus measures 9.6 x 4.6 x 5.2 cm. There is a calcified lesionidentified within the uterine body measuring approximately 3.3 x 2.5 x3.2 cmcompatible with a calcified fibroid. Incidentally noted is anabothian cysts within the cervix. The endometrial stripe measures 0.9cm in maximal thickness. Incidentally noted is a 0.8 x 1.0 x 1.0 cm cystwithin the endometrium.The right ovary measures 2.7 x 1.6 x 1.8 cm. Left ovary measures 2.7 x1.5 x 2.0 cm. Arterial and venous flow are preserved bilaterally. Noabnormal adnexal masses are identified.No free fluid is visualized within the pelvis.IMPRESSION :Stable calcified intrauterine fibroid.Upper normal endometrial thickness.Otherwise, unremarkable pelvic ultrasound examination.Electronically Signed By: Jorgito Mosher MD03/14/2023 00:42 CDTWorkstation Name: [id number] ABDOMEN/PELVIS WITH IV [id number] 22:11:52 [facility] : 1965 Sex: FTECHNIQUE: CT of the abdomen and pelvis WITH intravenous contrast andWITHOUT oral contrast. Dose modulation, iterative reconstruction, and/orweight-based adjustment of the mA/kV was utilized to reduce theradiation dose to as low as reasonably achievable.INDICATION: Abdominal pain, acute, nonlocalized.Right lower quadrantpain and tenderness. Prior urosepsis earlier this year from a stricturein the left ureter with interval repair.COMPARISON: CT 07/12/2022.FINDINGS:LOWER THORAX: Unremarkable.HEPATOBILIARY: Fatty infiltration of the liver. No focal hepatic lesion.Gallbladder is unremarkable. No abnormal biliary ductal dilatation.SPLEEN: No splenomegaly.ADRENALS: No adrenal nodules.PANCREAS: No focalmasses or ductal dilatation.LYMPH NODES: No lymphadenopathy.KIDNEYS/URETERS: No hydronephrosis, or stones. 6 mm fat attenuationlesion in the lower pole left kidney, unchanged in retrospect compatiblewith an angiomyolipoma.PELVIC ORGANS/BLADDER: 3.2 cm partially calcified fibroid within theleft aspect of the body of the uterus, unchanged.VESSELS: Unremarkable.PERITONEUM/RETROPERITONEUM: No free air or fluid.GI TRACT: No distention or wall thickening. Appendix not identified. Nosecondary evidence for acute appendicitis. Moderate amount of stoolthroughout the colon.BONES AND SOFT TISSUES: Unremarkable.IMPRESSION:1. Appendix not identified. No secondary evidence for acuteappendicitis.2. Mild fatty infi ltration of liver.3. No renal, ureteral or bladder stone. 6 mm left lower pole renalangiomyolipoma.4. Moderate amount of stool throughout the colon. No evidence for bowelobstruction.5. 3.2 cm partiallycalcified uterine fibroid, unchanged.Electronically Signed By: Yumi Whitmore03/13/2023 22:13 CD TWorkstation Name: [id number] W/ REFLEX URINE [id number] 16:48:44 Test Item Value Reference Range Interpretation Comments COLOR (BEAKER) (test code = 470) Colorless CLARITY (BEAKER) (test code = Clear 469) SPECIFIC GRAVITY UA (BEAKER) 1.042 1.001-1.035 H (test code = 468) PH UA (BEAKER) (test code = 467) 6.0 5.0-8.0 PROTEIN UA (BEAKER) (test code = Negative Negative 464) GLUCOSE UA (BEAKER) (test code = >1000 mg/dL Negative A 365) KETONES UA (BEAKER) (test code = Negative Negative 371) BILIRUBIN UA (BEAKER) (test code Negative Negative = 462) BLOOD UA (BEAKER) (test code = Negative Negative 461) NITRITE UA (BEAKER) (test code = Negative Negative 465) LEUKOCYTE ESTERASE UA (BEAKER) Negative Negative (test code = 466) UROBILINOGEN UA (BEAKER) (test 0.2 0.2-1.0 code = 463) RBC UA (BEAKER) (test code = 519) 3 /HPF WBC UA (BEAKER) (test code = 520) < /HPF SQUAMOUS EPITHELIAL (BEAKER) < /HPF (test code = 516) SOURCE(BEAKER) (test code = 2795) Tobacco Checkout Clerk ID - techCOMPREHENSIVE METABOLIC [id number] 16:02:48 Test Item Value Reference Range Interpretation Comments TOTAL PROTEIN 7.3 gm/dL 6.0-8.3 Specimen sligh tly (BEAKER) (test hemolyzedThis is a code = 770) corrected resul t. Previous result was 7.4 gm/dL on 03/13/2023 at 15 50 PRODUCTION OPERATIONS ENGINEER ALBUMIN (BEAKER) 4.2 g/dL 3.5-5.0 Specimen sl ightly (test code = 1145) hemolyzed ALKALINE 127 U/L 40-150 PHOSPHATASE (BEAKER) (test code = 346) BILIRUBIN TOTAL 0.4 mg/dL 0.2-1.2 Specimen sli ghtly (BEAKER) (test hemolyzed code = 377) SODIUM (BEAKER) 141 meq/L 136-145 This is a co rrected (test code = 381) result. Pr evious result was 140 meq/L o n 03/13/2023 at 1550 PRODUCTION OPERATIONS ENGINEER POTASSIUM (BEAKER) 4.2 meq/L 3.5-5.1 Specimen slightly (test code = 379) hemolyzedT his is a corrected resul t. Previous result was 4.1 meq/L on 03/13/2023 at 15 50 PRODUCTION OPERATIONS ENGINEER CHLORIDE (BEAKER) 105 meq/L 98-107 (test code = 382) CO2 (BEAKER) (test 26 meq/L 22-29 code = 355) BLOOD UREA 14 mg/dL 7-21 NITROGEN (BEAKER) (test code = 354) CREATININE 0.92 mg/dL 0.57-1.25 Specimen slight ly (BEAKER) (test hemolyzedThis is a code = 358) corrected resul t. Previous result was 0.94 mg/dL on 03/13/2023 at 15 50 PRODUCTION OPERATIONS ENGINEER GLUCOSE RANDOM 273 mg/dL 70-105 H (BEAKER) (test code = 652) CALCIUM (BEAKER) 9.1 mg/dL 8.4-10.2 (test code = 697) AST (SGOT) 29 U/L 5-34 Specimen slight ly (BEAKER) (test hemolyzedThis is a code = 353) corrected resul t. Previous result was 28 U /L on 03/13/2023 at 15 50 PRODUCTION OPERATIONS ENGINEER ALT (SGPT) 31 U/L 6-55 Specimen slight ly (BEAKER) (test hemolyzedThis is a code = 347) corrected resul t. Previous result was 34 U /L on 03/13/2023 at 15 50 PRODUCTION OPERATIONS ENGINEER EGFR (BEAKER) 72 Interpretatio n of eGFR (test code = 1092) mL/min/1.[address] age Description sq m Result G1 [place] l or high >=90 G2 Mildly decreased 60-89 G3a Mildl y to moderately 45-5 9 G3b Moderately to s everely 30-44 G4 Severl y decreased 15-29 G5 Kidney failure <15Reported eGF R is based on the CKD-EPI 2020 equation that d oes not use a race coefficientEsti mated GFR is not as accur ate as Creatinine Nely dumont in predicting glom erular filtration rate . Estimated GFR is not appl icable for dialysis patien tsThis is a corrected resul t. Previous result was 70 m L/min/1.73 sq m on 03/13/20 23 at 1550 PRODUCTION OPERATIONS ENGINEER Tobacco Checkout Clerk ID - BCOperator ID - BCSpecimen moderately [id number] 15:44:45 Test Item Value Reference Range Interpretation Comments LIPASE (BEAKER) (test code = 749) 66 U/L 8-78 Tobacco Checkout Clerk ID - BCCBC W/PLT COUNT & AUTO [id number] 15:21:20 Test Item Value Reference Range Interpretation Comments WHITE BLOOD CELL COUNT (BEAKER) 5.1 K/ L 3.5-10.5 (test code = 775) RED BLOOD CELL COUNT (BEAKER) 5.35 M/ L 3.93-5.22 H (test code = 761) HEMOGLOBIN (BEAKER) (test code = 15.5 GM/DL 11.2-15.7 410) HEMATOCRIT (BEAKER) (test code = 46.0 % 34.1-44.9 H 411) MEAN CORPUSCULAR VOLUME (BEAKER) 86 fL 79-95 (test code = 753) MEAN CORPUSCULAR HEMOGLOBIN 29.0 pg 25.6-32.2 (BEAKER) (test code = 751) MEAN CORPUSCULAR HEMOGLOBIN CONC 33.7 GM/DL 32.2-35.5 (BEAKER) (test code = 752) RED CELL DISTRIBUTION WIDTH 12.2 % 11.7-14.4 (BEAKER) (test code = 412) PLATELET COUNT (BEAKER) (test 231 K/CU MM 150-450 code = 756) MEAN PLATELET VOLUME (BEAKER) 9.3 fL 9.4-12.3 L (test code = 754) NUCLEATED RED BLOOD CELLS 0 /100 WBC 0-0 (BEAKER) (test code = 413) NEUTROPHILS RELATIVE PERCENT 61 % (BEAKER) (test code = 429) LYMPHOCYTES RELATIVE PERCENT 28 % (BEAKER) (test code = 430) MONOCYTES RELATIVE PERCENT 9 % (BEAKER) (test code = 431) EOSINOPHILS RELATIVE PERCENT 2 % (BEAKER) (test code = 432) BASOPHILS RELATIVE PERCENT 1 % (BEAKER) (test code = 437) NEUTROPHILS ABSOLUTE COUNT 3.08 K/ L 1.56-6.13 (BEAKER) (test code = 670) LYMPHOCYTES ABSOLUTE COUNT 1.41 K/ L 1.18-3.74 (BEAKER) (test code = 414) MONOCYTES ABSOLUTE COUNT (BEAKER) 0.47 K/ L 0.24-0.36 H (test code = 415) EOSINOPHILS ABSOLUTE COUNT 0.09 K/ L 0.04-0.36 (BEAKER) (test code = 416) BASOPHILS ABSOLUTE COUNT (BEAKER) 0.03 K/ L 0.01-0.08 (test code = 417) IMMATURE GRANULOCYTES-RELATIVE 0.20 % 0.00-1.00 PERCENT (BEAKER) (test code = 2801) FUNGUS CULTURE + [id number] 10:40:31 Test Item Value Reference Range Interpretation Comments CULTURE (BEAKER) (test No fungus isolated in code = 1095) 28 days FUNGUS SMEAR (BEAKER) No fungi seen (test code = 1406) TISSUE [id number] 15:26:59Surgical Pathology Report Case: [id number] Authorizing Provider: Oziel Erwin MD Collected: 08/10/2022 01:22 PM Ordering Location: [facility] PERIOPERATIVE Received: 08/10/2022 05:11 PM SERVICES Pathologist: Ginny Stringer MD Specimen: Soft Tissue, Other, LEFT URETERAL LESION URETER, LEFT LESION, BIOPSY -FOCALLY DENUDED URETERAL MUCOSA WITH REACTIVE UROTHELIAL CHANGES, ACUTE AND CHRONIC INFLAMMATION AND GRANULATION TISSUE-MUSCULARIS PROPRIA NOT IDENTIFIED Signing Pathologist Direct Phone Line: [phone] signed by Ginny Stringer MD on 08/11/2022 at 3:26 [id number] A. Soft Tissue, OtherA. Received in formalin labeled with the patient's name, medical record number and "left ureteral lesionbiopsy" consists of multiple red-gee soft tissue fragments measuring up to 0.1 cm in greatest dimension, which are submitted in toto in A1.DUNCAN Dias (ASCP)No dysplasia or malignancy is identified.[facility], Department of Pathology, [address] [place] [address], [facility] [place] [address], [facility], [facility] of [facility], [address] [place] [address], [facility], [facility] of [facility], [address] [place] [address], FYHV-GLUCOSE [id number] 12:02:21 Test Item Value Reference Range Interpretation Comments POC-GLUCOSE METER 198 mg/dL 70-110 H : TESTED A T [facility] 6720 (BEAKER) (test code = [facility], 1538) 15556: Tobacco Checkout Clerk/Techni kezia ID = [id number] for LITTLE PEDERSON POCT-GLUCOSE [id number] 06:33:42 Test Item Value Reference Range Interpretation Comments POC-GLUCOSE METER 206 mg/dL 70-110 H : TESTED A T [facility] 6720 (BEAKER) (test code = [facility], 1538) [address]: Tobacco Checkout Clerk/Techni kezia ID = [id number] for Suha Rojas [id number] 05:12:52 Test Item Value Reference Range Interpretation Comments PHOSPHORUS (BEAKER) (test code = 2.7 mg/dL 2.3-4.7 604) Tobacco Checkout Clerk ID - ADMINBASIC METABOLIC [id number] 05:12:51 Test Item Value Reference Range Interpretation Comments SODIUM (BEAKER) 136 meq/L 136-145 (test code = 381) POTASSIUM 4.2 meq/L 3.5-5.1 (BEAKER) (test code = 379) CHLORIDE (BEAKER) 106 meq/L 98-107 (test code = 382) CO2 (BEAKER) 21 meq/L 22-29 L (test code = 355) BLOOD UREA 10 mg/dL 7-21 NITROGEN (BEAKER) (test code = 354) CREATININE 0.74 mg/dL 0.57-1.25 (BEAKER) (test code = 358) GLUCOSE RANDOM 218 mg/dL 70-105 H (BEAKER) (test code = 652) CALCIUM (BEAKER) 9.1 mg/dL 8.4-10.2 (test code = 697) EGFR (BEAKER) 93 Interpretatio n of eGFR (test code = mL/min/1.73 values Stage De scription 1092) sq m Result G1 [place] l or high >=90 G2 Mildly decreased 60-89 G3a Mildl y to moderately 45-5 9 G3b Moderately to s everely 30-44 G4 Severl y decreased 15-29 G5 Kidney failure <15Reported eGF R is based on the CKD-EPI 2020 equation that d oes not use a race coefficientEsti mated GFR is not as accur ate as Creatinine Nely dumont in predicting glom erular filtration rate . Estimated GFR is not appl icable for dialysis patien ts Tobacco Checkout Clerk ID - [id number] 05:12:51 Test Item Value Reference Range Interpretation Comments MAGNESIUM (BEAKER) (test code = 1.5 mg/dL 1.6-2.6 L 627) Tobacco Checkout Clerk ID - [id number] W/PLT COUNT & AUTO [id number] 04:38:39 Test Item Value Reference Range Interpretation Comments WHITE BLOOD CELL COUNT (BEAKER) 7.9 K/ L 3.5-10.5 (test code = 775) RED BLOOD CELL COUNT (BEAKER) 4.55 M/ L 3.93-5.22 (test code = 761) HEMOGLOBIN (BEAKER) (test code = 13.0 GM/DL 11.2-15.7 410) HEMATOCRIT (BEAKER) (test code = 38.3 % 34.1-44.9 411) MEAN CORPUSCULAR VOLUME (BEAKER) 84 fL 79-95 (test code = 753) MEAN CORPUSCULAR HEMOGLOBIN 28.6 pg 25.6-32.2 (BEAKER) (test code = 751) MEAN CORPUSCULAR HEMOGLOBIN CONC 33.9 GM/DL 32.2-35.5 (BEAKER) (test code = 752) RED CELL DISTRIBUTION WIDTH 12.3 % 11.7-14.4 (BEAKER) (test code = 412) PLATELET COUNT (BEAKER) (test 254 K/CU MM 150-450 code = 756) MEAN PLATELET VOLUME (BEAKER) 9.6 fL 9.4-12.3 (test code = 754) NUCLEATED RED BLOOD CELLS 0 /100 WBC 0-0 (BEAKER) (test code = 413) NEUTROPHILS RELATIVE PERCENT 87 % (BEAKER) (test code = 429) LYMPHOCYTES RELATIVE PERCENT 11 % (BEAKER) (test code = 430) MONOCYTES RELATIVE PERCENT 2 % (BEAKER) (test code = 431) EOSINOPHILS RELATIVE PERCENT 0 % (BEAKER) (test code = 432) BASOPHILS RELATIVE PERCENT 0 % (BEAKER) (test code = 437) NEUTROPHILS ABSOLUTE COUNT 6.87 K/ L 1.56-6.13 H (BEAKER) (test code = 670) LYMPHOCYTES ABSOLUTE COUNT 0.84 K/ L 1.18-3.74 L (BEAKER) (test code = 414) MONOCYTES ABSOLUTE COUNT (BEAKER) 0.12 K/ L 0.24-0.36 L (test code = 415) EOSINOPHILS ABSOLUTE COUNT 0.00 K/ L 0.04-0.36 L (BEAKER) (test code = 416) BASOPHILS ABSOLUTE COUNT (BEAKER) 0.01 K/ L 0.01-0.08 (test code = 417) IMMATURE GRANULOCYTES-RELATIVE 0.40 % 0.00-1.00 PERCENT (BEAKER) (test code = 2801) POCT-GLUCOSE [id number] 21:18:05 Test Item Value Reference Range Interpretation Comments POC-GLUCOSE METER 268 mg/dL 70-110 H : TESTED A T [facility] 6720 (BEAKER) (test code = [facility], 153) [id number]: Tobacco Checkout Clerk/Techni kezia ID = [id number] for Suha Rojas POCT-GLUCOSE [id number] 16:57:16 Test Item Value Reference Range Interpretation Comments POC-GLUCOSE METER 162 mg/dL 70-110 H : TESTED A T [facility] 6720 (BEAKER) (test code = [facility], 153) 33855: Tobacco Checkout Clerk/Techni kezia ID = [id number] for SOUTHKasiTRICIALITTLE POCT-GLUCOSE [id number] 14:40:10 Test Item Value Reference Range Interpretation Comments POC-GLUCOSE METER 129 mg/dL 70-110 H : TESTED A T [facility] 6720 (BEAKER) (test code = [facility], 153) 74889: Tobacco Checkout Clerk/Techni kezia ID = [id number] for Te rrell, Valentin [place], FLUORO, NON-SPECIFIC, UP TO 1 [id number] 14:01:00Reason for exam:- >cystoscopy, left ureteroscopy, possible laser lithotripsy, biopsy, bilateral retrograde pyelogram, left ureteral stent placement [facility] CENTER[facility] JOANNA GARCIA : 1965 Sex: FAn imaging unit was utilized for this procedure. No radiologist interpretation was requested. Refer to the EMR for findings. Refer to PACS for any patient radiation dose information.POCT-GLUCOSE [id number] 12:04:21 Test Item Value Reference Range Interpretation Comments POC-GLUCOSE METER 125 mg/dL 70-110 H : TESTED A T [facility] 6720 (BEAKER) (test code [facility], = 1538) 05526: Tobacco Checkout Clerk/Techni kezia ID = [id number] for Innery nLauraa BLOOD [id number] 17:00:18 Test Item Value Reference Range Interpretation Comments CULTURE (BEAKER) (test No growth in 5 days code = 1095) BLOOD [id number] 17:00:17 Test Item Value Reference Range Interpretation Comments CULTURE (BEAKER) (test No growth in 5 days code = 1095) POCT-GLUCOSE [id number] 18:13:11 Test Item Value Reference Range Interpretation Comments POC-GLUCOSE METER 223 mg/dL 70-110 H : TESTED A T [facility] 6720 (BEAKER) (test code = [facility], 1538) 83610: Tobacco Checkout Clerk/Techni kezia ID = [id number] for DACIA LITTLE POCT-GLUCOSE [id number] 12:42:46 Test Item Value Reference Range Interpretation Comments POC-GLUCOSE METER 213 mg/dL 70-110 H : TESTED A T [facility] 6720 (BEAKER) (test code = [facility], 1538) 67197: Tobacco Checkout Clerk/Techni kezia ID = [id number] for LITTLE PEDERSON, CHEST, 1 VIEW, NON [id number] 11:42:00Reason for exam:->PICC LINE PLACEMENTShould this be performed at the bedside?->Yes [facility] : 1965 Sex: FFINAL REPORT CLINICAL HISTORY: PICC LINE PLACEMENT TECHNIQUE: 1 view of the chest. COMPARISON: 07/12/2022 IMPRESSION: There is a right PICC line in the SVC roughly 2 cm above the cavoatrialjunction. There is new patchy right lower lung airspace opacity with blunting of the right costophrenic angle. The left lung remains well-aerated. The cardiomediastinal silhouette is magnified by technique. Signed: Elver [facility]ps[facility] Verified Date/Time: 07/22/2022 11:42:38 Reading Location: [address] Reading Room POCT-GLUCOSE METER 2022-07-22 07:24:58 Test Item Value Reference Range Interpretation Comments POC-GLUCOSE METER 190 mg/dL 70-110 H : TESTED A T [facility] 6720 (BEAKER) (test code = [facility] Mort[facility], 1538) 93527: Tobacco Checkout Clerk/Techni kezia ID = [id number] for Suha Rojas POCT-GLUCOSE [id number] 22:25:12 Test Item Value Reference Range Interpretation Comments POC-GLUCOSE METER 187 mg/dL 70-110 H : TESTED A T [facility] 6720 (BEAKER) (test code = [facility], 153) 03604: Tobacco Checkout Clerk/Techni kezia ID = [id number] for Suha Rojas POCT-GLUCOSE [id number] 16:34:50 Test Item Value Reference Range Interpretation Comments POC-GLUCOSE METER 155 mg/dL 70-110 H : TESTED A T [facility] 6720 (BEAKER) (test code = [facility], [facility]) 51427: Tobacco Checkout Clerk/Techni kezia ID = [id number] for SOUTH-TRICIA, LITTLE POCT-GLUCOSE [id number] 11:35:26 Test Item Value Reference Range Interpretation Comments POC-GLUCOSE METER 351 mg/dL 70-110 H : TESTED A T [facility] 6720 (BEAKER) (test code = [facility], [facility]) 88642: Tobacco Checkout Clerk/Techni kezia ID = [id number] for ROOMNIKITA-TRICIA, LITTLE POCT-GLUCOSE [id number] 06:58:16 Test Item Value Reference Range Interpretation Comments POC-GLUCOSE METER 187 mg/dL 70-110 H : TESTED A T [facility] 6720 (BEAKER) (test code = [facility], [facility]) 45536: Tobacco Checkout Clerk/Techni kezia ID = [id number] for PE AIDEE, JIMENEZ POCT-GLUCOSE [id number] 21:57:47 Test Item Value Reference Range Interpretation Comments POC-GLUCOSE METER 234 mg/dL 70-110 H : TESTED A T [facility] 6720 (BEAKER) (test code = [facility], [facility]) 24393: Tobacco Checkout Clerk/Techni kezia ID = [id number] for PE AIDEE, JIMENEZ POCT-GLUCOSE [id number] 16:17:52 Test Item Value Reference Range Interpretation Comments POC-GLUCOSE METER 290 mg/dL 70-110 H : TESTED A T [facility] 6720 (BEAKER) (test code = [facility], [facility]) 12505: Tobacco Checkout Clerk/Techni kezia ID = [id number] for ROOMNIKITA-TRICIA, LITTLE POCT-GLUCOSE [id number] 11:43:52 Test Item Value Reference Range Interpretation Comments POC-GLUCOSE METER 218 mg/dL 70-110 H : TESTED A T [facility] 6720 (BEAKER) (test code = [facility] Mortensen [place], 1538) 27498: Tobacco Checkout Clerk/Techni kezia ID = [id number] for Kelvin Greene POCT-GLUCOSE [id number] 06:42:36 Test Item Value Reference Range Interpretation Comments POC-GLUCOSE METER 212 mg/dL 70-110 H : TESTED A T [facility] 6720 (BEAKER) (test code = [facility] Mortensen [place], 1538) 88793: Tobacco Checkout Clerk/Techni kezia ID = [id number] for JIMENEZ GRANADOS CBC W/PLT COUNT & AUTO [id number] 05:58:46 Test Item Value Reference Range Interpretation Comments WHITE BLOOD CELL COUNT (BEAKER) 5.9 K/ L 3.5-10.5 (test code = 775) RED BLOOD CELL COUNT (BEAKER) 3.68 M/ L 3.93-5.22 L (test code = 761) HEMOGLOBIN (BEAKER) (test code = 10.8 GM/DL 11.2-15.7 L 410) HEMATOCRIT (BEAKER) (test code = 32.6 % 34.1-44.9 L 411) MEAN CORPUSCULAR VOLUME (BEAKER) 89 fL 79-95 (test code = 753) MEAN CORPUSCULAR HEMOGLOBIN 29.3 pg 25.6-32.2 (BEAKER) (test code = 751) MEAN CORPUSCULAR HEMOGLOBIN CONC 33.1 GM/DL 32.2-35.5 (BEAKER) (test code = 752) RED CELL DISTRIBUTION WIDTH 13.2 % 11.7-14.4 (BEAKER) (test code = 412) PLATELET COUNT (BEAKER) (test 428 K/CU MM 150-450 code = 756) MEAN PLATELET VOLUME (BEAKER) 8.6 fL 9.4-12.3 L (test code = 754) NUCLEATED RED BLOOD CELLS 0 /100 WBC 0-0 (BEAKER) (test code = 413) NEUTROPHILS RELATIVE PERCENT 49 % (BEAKER) (test code = 429) LYMPHOCYTES RELATIVE PERCENT 36 % (BEAKER) (test code = 430) MONOCYTES RELATIVE PERCENT 9 % (BEAKER) (test code = 431) EOSINOPHILS RELATIVE PERCENT 4 % (BEAKER) (test code = 432) BASOPHILS RELATIVE PERCENT 1 % (BEAKER) (test code = 437) NEUTROPHILS ABSOLUTE COUNT 2.90 K/ L 1.56-6.13 (BEAKER) (test code = 670) LYMPHOCYTES ABSOLUTE COUNT 2.13 K/ L 1.18-3.74 (BEAKER) (test code = 414) MONOCYTES ABSOLUTE COUNT (BEAKER) 0.52 K/ L 0.24-0.36 H (test code = 415) EOSINOPHILS ABSOLUTE COUNT 0.22 K/ L 0.04-0.36 (BEAKER) (test code = 416) BASOPHILS ABSOLUTE COUNT (BEAKER) 0.05 K/ L 0.01-0.08 (test code = 417) IMMATURE GRANULOCYTES-RELATIVE 2.00 % 0.00-1.00 H PERCENT (BEAKER) (test code = 2801) SARS-COV2/RT-PCR ([facility])2022-07-20 01:48:41 Test Item Value Reference Range Interpretation Comments SARS-COV2/RT-PCR Negative Negative The SARS-Co V-2 target (test code = nucleic acids a re not [id number]) detected in thi s specimen. Negative result s do not preclude SARS-C oV-2 infection and s hould not be used as the luann e basis for patient managem ent decisions. Nega tive results must be combine d with clinical observ ations, patient history , and epidemiological information. A false negativ e result may occur if a spec imen is improperly drew ected, transported or handled. This SARS CoV-2 test is a rapid, real-time RT-PC R test intended for th e qualitative detection of nu cleic acid from SARS-CoV-2 in a nasopharyngeal swab specimen collected from individuals suspected of CO VID-19 by their healthcar e provider. This test has been authorized by FDA under an EUA for use by authorized laboratories. This test is only authorized for the duration of the declaration that circumstances exist justifying the authorization of emergency use of in vitro diagnostic tests for detection and/or diagnosis of COVID-19 under Section 564(b)(1) of the Federal Food, Drug and Cosmetic Act, 21 U.S.C. 360bbb-3(b)(1), unless the authorization is terminated or revoked sooner. Fact Sheet for Healthcare Providers: https://www.cepheid.co m/Documents/Xpert%20Xpress%20SARS%20CoV-2/Fact%20Sheets/302-3802%73LZCM-NFU-5%20 HEALTHCARE%20PROVIDERS%20FACT%20SHEET.pdf Fact Sheet for Healthcare Patients: https://www.DewMobile/Documents/Xpert%20Xp ress%20SARS%20CoV-2/Fact%20Sheets/302-3801%06MNSL-TNR-4%20PATIENT%20FACT%20SHEET .pdfPOCT-GLUCOSE [id number] 21:58:20 Test Item Value Reference Range Interpretation Comments POC-GLUCOSE METER 217 mg/dL 70-110 H : TESTED A T [facility] 6720 ([employer]) (test code = [facility], 1538) 46676: Tobacco Checkout Clerk/Techni kezia ID = [id number] for PE BRINDA HOSKINSA POCT-GLUCOSE [id number] 19:05:45 Test Item Value Reference Range Interpretation Comments POC-GLUCOSE METER 199 mg/dL 70-110 H : TESTED A T [facility] 6720 ([employer]) (test code = [facility], 1538) 29154: Tobacco Checkout Clerk/Techni kezia ID = [id number] for Le onard, Lulú POCT-GLUCOSE [id number] 12:27:40 Test Item Value Reference Range Interpretation Comments POC-GLUCOSE METER 137 mg/dL 70-110 H : TESTED A T [facility] 6720 ([facility]) (test code = [facility], 1538) 25586: Tobacco Checkout Clerk/Techni kezia ID = [id number] for Le onard, Lulú POCT-GLUCOSE [id number] 07:46:25 Test Item Value Reference Range Interpretation Comments POC-GLUCOSE METER 139 mg/dL 70-110 H : TESTED A T [facility] 6720 ([facility]) (test code = [facility], 1538) 31677: Tobacco Checkout Clerk/Techni kezia ID = [id number] for ON UOHA, EJ CBC W/PLT COUNT & AUTO [id number] 04:41:33 Test Item Value Reference Range Interpretation Comments WHITE BLOOD CELL COUNT ([facility]) 6.5 K/ L 3.5-10.5 (test code = 775) RED BLOOD CELL COUNT (BEAKER) 4.12 M/ L 3.93-5.22 (test code = 761) HEMOGLOBIN (BEAKER) (test code = 12.0 GM/DL 11.2-15.7 410) HEMATOCRIT (BEAKER) (test code = 36.1 % 34.1-44.9 411) MEAN CORPUSCULAR VOLUME (BEAKER) 88 fL 79-95 (test code = 753) MEAN CORPUSCULAR HEMOGLOBIN 29.1 pg 25.6-32.2 (BEAKER) (test code = 751) MEAN CORPUSCULAR HEMOGLOBIN CONC 33.2 GM/DL 32.2-35.5 (BEAKER) (test code = 752) RED CELL DISTRIBUTION WIDTH 13.2 % 11.7-14.4 (BEAKER) (test code = 412) PLATELET COUNT (BEAKER) (test 438 K/CU MM 150-450 code = 756) MEAN PLATELET VOLUME (BEAKER) 8.5 fL 9.4-12.3 L (test code = 754) NUCLEATED RED BLOOD CELLS 0 /100 WBC 0-0 (BEAKER) (test code = 413) NEUTROPHILS RELATIVE PERCENT 54 % (BEAKER) (test code = 429) LYMPHOCYTES RELATIVE PERCENT 29 % (BEAKER) (test code = 430) MONOCYTES RELATIVE PERCENT 10 % (BEAKER) (test code = 431) EOSINOPHILS RELATIVE PERCENT 3 % (BEAKER) (test code = 432) BASOPHILS RELATIVE PERCENT 1 % (BEAKER) (test code = 437) NEUTROPHILS ABSOLUTE COUNT 3.50 K/ L 1.56-6.13 (BEAKER) (test code = 670) LYMPHOCYTES ABSOLUTE COUNT 1.89 K/ L 1.18-3.74 (BEAKER) (test code = 414) MONOCYTES ABSOLUTE COUNT (BEAKER) 0.63 K/ L 0.24-0.36 H (test code = 415) EOSINOPHILS ABSOLUTE COUNT 0.19 K/ L 0.04-0.36 (BEAKER) (test code = 416) BASOPHILS ABSOLUTE COUNT (BEAKER) 0.05 K/ L 0.01-0.08 (test code = 417) IMMATURE GRANULOCYTES-RELATIVE 3.10 % 0.00-1.00 H PERCENT (BEAKER) (test code = 2801) POCT-GLUCOSE [id number] 21:51:58 Test Item Value Reference Range Interpretation Comments POC-GLUCOSE METER 244 mg/dL 70-110 H : TESTED A T [facility] 6720 (HAI) (test code = [facility] [place], 1538) 32599: Tobacco Checkout Clerk/Techni kezia ID = [id number] for ON UEJ COPE ANG, NEPHROSTOMY, [id number] 17:32:00Reason for exam:->conversion of L PCN to L PCNU (obstructed left UPJ, unclear if stone, mass, etc) [facility] : 1965 Sex: FFINAL REPORT Nephroureterostomy catheter placement, left, 07/18/2022. Clinical History:Left ureteral obstruction. Modality: Fluoroscopy. Editor Book: Rin. Flat Folding Machine Operator: None. Sedation: 1 mg Versed and 50 mcg Fentanyl IV was used for moderate sedation monitored under my direction. The patient's vital signs were monitored throughout the procedure and recorded to the patient's medicalrecord by the nurse. Total intra-service time of sedation was 20 minutes. Estimated Blood Loss: Lessthan 5 cc. Specimen: None. Fluoro Time: 1.4 min. Dose (Ka,r): 30.2 mGy. Technique: Informed written consent was obtained. Discussion of risks, benefits, and alternatives were made with the patient. Thepatient expressed understanding and agreed to proceed. All elements maximal sterile barrier technique was utilized for this procedure, including utilization of sterile scrub solution for skin prep, a large sterile sheet to cover the areas of the patient that were not prepped, and hand hygiene, mask, head covering, and sterile gown for performing radiologist and scrub technologist. Local anesthesia was achieved with 1% lidocaine. A 0.035 inch wire was advanced through the existing nephrostomy catheter a curled within the pelvis. The old catheter was removed and a 4 Estonian Berenstein catheter advanced over the Glidewire were advanced into the renal pelvis and down the ureter into the bladder. The Glidewire was exchanged for an Amplatz wire which was positioned within the bladder. A 8.5 Estonian x 22 cm nephroureterostomy catheter was advanced over the wire until the catheter tip was within the bladder. The wire was then removed, and the pigtail of the catheter was locked. The catheter was then secured onto the skin with 2-0 silk. The patient tolerated the procedure well, without immediate complications. The patient's vital signs remained stable throughout the procedure. Patient disposition: The patient was discharged from the department in stable condition. Impression:Successful and uncomplicated left nephroureterostomy catheter placement with conscious sedation. Signed: Mikhail NapoleseportVerified Date/Time: 07/18/2022 17:32:29 Reading Location: [address] Body Reading Room POCT-GLUCOSE [id number] 12:55:05 Test Item Value Reference Range Interpretation Comments POC-GLUCOSE METER 128 mg/dL 70-110 H : TESTED A T [facility] 6720 (BEAKER) (test code = [facility], 1538) 23523: Tobacco Checkout Clerk/Techni kezia ID = [id number] for LITTLE PEDERSON POCT-GLUCOSE [id number] 06:29:21 Test Item Value Reference Range Interpretation Comments POC-GLUCOSE METER 182 mg/dL 70-110 H : TESTED A T [facility] 6720 (BEAKER) (test code = [facility], 1538) 66324: Tobacco Checkout Clerk/Techni kezia ID = [id number] for Suha Rojas CBC W/PLT COUNT & AUTO [id number] 05:02:49 Test Item Value Reference Range Interpretation Comments WHITE BLOOD CELL COUNT (BEAKER) 6.0 K/ L 3.5-10.5 (test code = 775) RED BLOOD CELL COUNT (BEAKER) 3.97 M/ L 3.93-5.22 (test code = 761) HEMOGLOBIN (BEAKER) (test code = 11.6 GM/DL 11.2-15.7 410) HEMATOCRIT (BEAKER) (test code = 34.4 % 34.1-44.9 411) MEAN CORPUSCULAR VOLUME (BEAKER) 87 fL 79-95 (test code = 753) MEAN CORPUSCULAR HEMOGLOBIN 29.2 pg 25.6-32.2 (BEAKER) (test code = 751) MEAN CORPUSCULAR HEMOGLOBIN CONC 33.7 GM/DL 32.2-35.5 (BEAKER) (test code = 752) RED CELL DISTRIBUTION WIDTH 13.2 % 11.7-14.4 (BEAKER) (test code = 412) PLATELET COUNT (BEAKER) (test 413 K/CU MM 150-450 code = 756) MEAN PLATELET VOLUME (BEAKER) 8.9 fL 9.4-12.3 L (test code = 754) NUCLEATED RED BLOOD CELLS 0 /100 WBC 0-0 (BEAKER) (test code = 413) (CELLAVISION MANUAL DIFF)2022-07-18 05:02:49 Test Item Value Reference Range Interpretation Comments NEUTROPHILS - REL 54 % (CELLAVISION)(BEAKER) (test code = 2816) LYMPHOCYTES - REL 23 % (CELLAVISION)(BEAKER) (test code = 2817) MONOCYTES - REL 6 % (CELLAVISION)(BEAKER) (test code = 2818) EOSINOPHILS - REL 7 % (CELLAVISION)(BEAKER) (test code = 2819) BASOPHILS - REL 2 % (CELLAVISION)(BEAKER) (test code = 2820) MYELOCYTES - REL 4 % 0-0 H (CELLAVISION)(BEAKER) (test code = 2822) BANDS - REL (CELLAVISION)(BEAKER) 2 % 0-10 (test code = 2826) ATYPICAL LYMPHOCYTES - REL 1 % 0-0 H (CELLAVISION)(BEAKER) (test code = 2829) NEUTROPHILS - ABS 3.24 K/ul 1.56-6.13 (CELLAVISION)(BEAKER) (test code = 2830) LYMPHOCYTES - ABS 1.38 K/ul 1.18-3.74 (CELLAVISION)(BEAKER) (test code = 2831) MONOCYTES - ABS 0.36 K/uL 0.24-0.36 (CELLAVISION)(BEAKER) (test code = 2832) EOSINOPHILS - ABS 0.42 K/uL 0.04-0.36 H (CELLAVISION)(BEAKER) (test code = 2834) BASOPHILS - ABS 0.12 K/uL 0.01-0.08 H (CELLAVISION)(BEAKER) (test code = 2835) MYELOCYTES-ABS 0.24 K/uL 0.00-0.00 H (CELLAVISION)(BEAKER) (test code = 2837) BANDS - ABS (CELLAVISION)(BEAKER) 0.12 K/uL 0.00-0.80 (test code = 2840) ATYPICAL LYMPHOCYTES - ABS 0.06 K/uL 0.00-0.00 H (CELLAVISION)(BEAKER) (test code = 6178) TOTAL COUNTED (BEAKER) (test code = 100 1351) RBC MORPHOLOGY (BEAKER) (test code Normal = 762) PLT MORPHOLOGY (BEAKER) (test code Normal = 486) PLASMACYTOID LYMPHS(BEAKER) (test Present code = 1677) ARTIFACT (CELLAVISION)(BEAKER) Present (test code = 3432) PLATELET CONCENTRATION Adequate (CELLAVISION)(BEAKER) (test code = 3438) Tobacco Checkout Clerk ID - Gracie Medley comments: Slide comments:BASIC METABOLIC PANEL 2022-07-18 04:45:06 Test Item Value Reference Range Interpretation Comments SODIUM (BEAKER) 139 meq/L 136-145 (test code = 381) POTASSIUM 3.7 meq/L 3.5-5.1 Specimen slight ly (BEAKER) (test hemolyzed code = 379) CHLORIDE (BEAKER) 105 meq/L 98-107 (test code = 382) CO2 (BEAKER) 27 meq/L 22-29 (test code = 355) BLOOD UREA 8 mg/dL 7-21 NITROGEN (BEAKER) (test code = 354) CREATININE 0.68 mg/dL 0.57-1.25 Specimen slight ly (BEAKER) (test hemolyzed code = 358) GLUCOSE RANDOM 193 mg/dL 70-105 H (BEAKER) (test code = 652) CALCIUM (BEAKER) 9.0 mg/dL 8.4-10.2 (test code = 697) EGFR (BEAKER) 100 Interpretatio n of eGFR (test code = mL/min/1.73 values Stage De scription 1092) sq m Result G1 Bronwyn l or high >=90 G2 Mildly decreased 60-89 G3a Mildl y to moderately 45-5 9 G3b Moderately to s everely 30-44 G4 Severl y decreased 15-29 G5 Kidne y failure <15Reported eGF R is based on the CKD-EPI 2020 equation that d oes not use a race coefficientEsti mated GFR is not as accur ate as Creatinine Nely tim in predicting glom erular filtration rate . Estimated GFR is not appl icable for dialysis patien ts Tobacco Checkout Clerk ID - FLAVIO [id number] 04:27:38 Test Item Value Reference Range Interpretation Comments PROTIME (BEAKER) (test code = 14.0 seconds 11.9-14.2 759) INR (BEAKER) (test code = 370) 1.14 <=5.90 PARTIAL THROMBOPLASTIN TIME 31.4 seconds 22.5-36.0 (BEAKER) (test code = 760) RECOMMENDED COUMADIN/WARFARIN INR THERAPY RANGESSTANDARD DOSE: 2.0 - 3.0 Includes: PROPHYLAXIS for venous thrombosis, systemic embolization; TREATMENT for venous thrombosis and/or pulmonary embolus.HIGH RISK: Target INR is 2.5-3.5 for patients with mechanical heart valves.POCT-GLUCOSE [id number] 21:16:52 Test Item Value Reference Range Interpretation Comments POC-GLUCOSE METER 254 mg/dL 70-110 H : TESTED A T [facility] 6720 ([employer]) (test code = [facility] [employer] [facility], 1538) 58591: Tobacco Checkout Clerk/Techni kezia ID = [id number] for Suha Rojas POCT-GLUCOSE [id number] 11:58:57 Test Item Value Reference Range Interpretation Comments POC-GLUCOSE METER 181 mg/dL 70-110 H : TESTED A T [facility] 6720 ([employer]) (test code = [facility] [employer] [facility], 1538) 20111: Tobacco Checkout Clerk/Techni kezia ID = [id number] for Lulú Kimble POCT-GLUCOSE [id number] 06:15:34 Test Item Value Reference Range Interpretation Comments POC-GLUCOSE METER 181 mg/dL 70-110 H : TESTED A T [facility] 6720 (BEAKER) (test code = WHIT[facility] Mortensen [facility], 1538) 88666: Tobacco Checkout Clerk/Techni kezia ID = [id number] for Or Rajiv michelle BASIC METABOLIC [id number] 04:05:34 Test Item Value Reference Range Interpretation Comments SODIUM (BEAKER) 139 meq/L 136-145 (test code = 381) POTASSIUM 3.7 meq/L 3.5-5.1 (BEAKER) (test code = 379) CHLORIDE (BEAKER) 106 meq/L 98-107 (test code = 382) CO2 (BEAKER) 26 meq/L 22-29 (test code = 355) BLOOD UREA 8 mg/dL 7-21 NITROGEN (BEAKER) (test code = 354) CREATININE 0.75 mg/dL 0.57-1.25 (BEAKER) (test code = 358) GLUCOSE RANDOM 190 mg/dL 70-105 H (BEAKER) (test code = 652) CALCIUM (BEAKER) 8.9 mg/dL 8.4-10.2 (test code = 697) EGFR (BEAKER) 92 Interpretatio n of eGFR (test code = mL/min/1.73 values Stage De scription 1092) sq m Result G1 Bronwyn l or high >=90 G2 Mildly decreased 60-89 G3a Mildl y to moderately 45-5 9 G3b Moderately to s everely 30-44 G4 Severl y decreased 15-29 G5 Kidne y failure <15Reported eGF R is based on the CKD-EPI 2020 equation that d oes not use a race coefficientEsti mated GFR is not as accur ate as Creatinine Nely dumont in predicting glom erular filtration rate . Estimated GFR is not appl icable for dialysis patien ts Tobacco Checkout Clerk ID - ADMINPOCT-GLUCOSE [id number] 21:06:19 Test Item Value Reference Range Interpretation Comments POC-GLUCOSE METER 199 mg/dL 70-110 H : TESTED A T [facility] 6720 (BEAKER) (test code = [facility]IT[facility] Mortensen [facility], 1538) 19219: Tobacco Checkout Clerk/Techni kezia ID = [id number] for Or Rajiv michelle POCT-GLUCOSE [id number] 16:04:43 Test Item Value Reference Range Interpretation Comments POC-GLUCOSE METER 153 mg/dL 70-110 H : TESTED A T [facility] 6720 (BEAKER) (test code = [facility], 1538) 23845: Tobacco Checkout Clerk/Techni kezia ID = [id number] for Ratna Barry POCT-GLUCOSE [id number] 15:47:43 Test Item Value Reference Range Interpretation Comments POC-GLUCOSE METER 224 mg/dL 70-110 H : TESTED A T [facility] 6720 (BEAKER) (test code = [facility], 1538) 72958: Tobacco Checkout Clerk/Techni kezia ID = [id number] for Lulú Kimble POCT-GLUCOSE [id number] 07:14:22 Test Item Value Reference Range Interpretation Comments POC-GLUCOSE METER 175 mg/dL 70-110 H : TESTED A T [facility] 6720 (BEAKER) (test code = [facility], 1538) 24523: Tobacco Checkout Clerk/Techni kezia ID = [id number] for Alexander viviana Rajiv [id number] 05:52:25 Test Item Value Reference Range Interpretation Comments MAGNESIUM (BEAKER) (test code = 1.7 mg/dL 1.6-2.6 627) Tobacco Checkout Clerk ID - BSBASIC METABOLIC [id number] 05:52:24 Test Item Value Reference Range Interpretation Comments SODIUM (BEAKER) 139 meq/L 136-145 (test code = 381) POTASSIUM 3.6 meq/L 3.5-5.1 (BEAKER) (test code = 379) CHLORIDE (BEAKER) 104 meq/L 98-107 (test code = 382) CO2 (BEAKER) 28 meq/L 22-29 (test code = 355) BLOOD UREA 6 mg/dL 7-21 L NITROGEN (BEAKER) (test code = 354) CREATININE 0.64 mg/dL 0.57-1.25 (BEAKER) (test code = 358) GLUCOSE RANDOM 163 mg/dL 70-105 H (BEAKER) (test code = 652) CALCIUM (BEAKER) 9.2 mg/dL 8.4-10.2 (test code = 697) EGFR (BEAKER) 102 Interpretati on of eGFR (test code = mL/min/1.73 values Stage De scription 1092) sq m Result G1 Bronwyn l or high >=90 G2 Mildly decreased 60-89 G3a Mildl y to moderately 45-5 9 G3b Moderately to s everely 30-44 G4 Severl y decreased 15-29 G5 Kidney failure <15Reported eGF R is based on the CKD-EPI 2020 equation that d oes not use a race coefficientEsti mated GFR is not as accur ate as Creatinine Nely tim in predicting glom erular filtration rate . Estimated GFR is not appl icable for dialysis patien ts Tobacco Checkout Clerk ID - BSPOCT-GLUCOSE [id number] 21:41:41 Test Item Value Reference Range Interpretation Comments POC-GLUCOSE METER 199 mg/dL 70-110 H : TESTED A T [facility] ([employer]) (test code = [facility], 153) 95097: Tobacco Checkout Clerk/Techni kezia ID = [id number] for Or Rajiv michelle POCT-GLUCOSE [id number] 17:00:50 Test Item Value Reference Range Interpretation Comments POC-GLUCOSE METER 250 mg/dL 70-110 H : TESTED A T [facility] ([employer]) (test code = [facility] [employer] [facility], 1538) 77474: Tobacco Checkout Clerk/Techni kezia ID = [id number] for Sa didierhez, Soraidailinishant POCT-GLUCOSE [id number] 12:39:05 Test Item Value Reference Range Interpretation Comments POC-GLUCOSE METER 225 mg/dL 70-110 H : TESTED A T [facility] ([employer]) (test code = [facility], 1538) 00583: Tobacco Checkout Clerk/Techni kezia ID = [id number] for Sa nchez, Yamilith BLOOD [id number] 10:43:19 Test Item Value Reference Range Interpretation Comments CULTURE A From Aerobic An d (BEAKER) (test Anaerobic Bot tles Same code = 1095) organism has be en isolated from cultures(s) of the same body site and collection date . Repeat identifi cation and susceptibil ity testing perform ed only after consultat ion with the [facility] microbiology laboratory.Refe r to previous cultur e of - Raoultella ornithinolytica GRAM STAIN From aerobic and RESULT (AKER) anaerobic (test code = bottles: gram 1123) negative rods The specimen volume collected for this blood culture was below the optimum (10 mL per bottle or 20 mL total). Use of lower volumes may adversely affect recovery and/or detection times of some organisms.BLOOD [id number] 10:40:59 Test Item Value Reference Interpretation Comments Range CULTURE (BEAKER) RAOULTELLA A From Aerobi c And (test code = 1095) ORNITHINOLYTICA Anaero bic Bottles Raoultella ornithinolytica Amikacin (test code S = 1) Ampicillin + R Sulbactam (test code = 6) Aztreonam (test code R = 32) Cefepime (test code S = 51) Cefoxitin (test code S = 68) Ceftazidime (test R code = 27) Ceftriaxone (test R code = 52) Ertapenem (test code S = 38) Gentamicin (test R code = 18) Levofloxacin (test R code = 22) Meropenem (test code S = 34) Nitrofurantoin (test S code = 23) Piperacillin + S Tazobactam (test code = 29) Tetracycline (test R code = 2) Tobramycin (test R code = 25) Trimethoprim + R Sulfamethoxazole (test code = 47) GRAM STAIN RESULT From aerobic and (BEAKER) (test code anaerobic bottles: = 1123) gram negative rods The specimen volume collected for this blood culture was below the optimum (10 mL per bottle or 20 mL total). Use of lower volumes may adversely affect recovery and/or detection times of some organisms.[id number] 04:57:36 Test Item Value Reference Range Interpretation Comments MAGNESIUM (BEAKER) (test code = 1.7 mg/dL 1.6-2.6 627) Tobacco Checkout Clerk ID - ADMINBASIC METABOLIC [id number] 04:57:35 Test Item Value Reference Range Interpretation Comments SODIUM (BEAKER) 135 meq/L 136-145 L (test code = 381) POTASSIUM 3.5 meq/L 3.5-5.1 (BEAKER) (test code = 379) CHLORIDE (BEAKER) 104 meq/L 98-107 (test code = 382) CO2 (BEAKER) 26 meq/L 22-29 (test code = 355) BLOOD UREA 5 mg/dL 7-21 L NITROGEN (BEAKER) (test code = 354) CREATININE 0.64 mg/dL 0.57-1.25 (BEAKER) (test code = 358) GLUCOSE RANDOM 150 mg/dL 70-105 H (BEAKER) (test code = 652) CALCIUM (BEAKER) 8.5 mg/dL 8.4-10.2 (test code = 697) EGFR (BEAKER) 102 Interpretatio n of eGFR (test code = mL/min/1.73 values Stage De scription 1092) sq m Result G1 Bronwyn l or high >=90 G2 Mildly decreased 60-89 G3a Mildl y to moderately 45-5 9 G3b Moderately to s everely 30-44 G4 Severl y decreased 15-29 G5 Kidney failure <15Reported eGF R is based on the CKD-EPI 2020 equation that d oes not use a race coefficientEsti mated GFR is not as accur ate as Creatinine Nely tim in predicting glom erular filtration rate . Estimated GFR is not appl icable for dialysis patien ts Tobacco Checkout Clerk ID - ADMINCBC W/PLT COUNT & AUTO [id number] 04:05:10 Test Item Value Reference Range Interpretation Comments WHITE BLOOD CELL COUNT (BEAKER) 5.4 K/ L 3.5-10.5 (test code = 775) RED BLOOD CELL COUNT (BEAKER) 3.75 M/ L 3.93-5.22 L (test code = 761) HEMOGLOBIN (BEAKER) (test code = 10.6 GM/DL 11.2-15.7 L 410) HEMATOCRIT (BEAKER) (test code = 31.3 % 34.1-44.9 L 411) MEAN CORPUSCULAR VOLUME (BEAKER) 84 fL 79-95 (test code = 753) MEAN CORPUSCULAR HEMOGLOBIN 28.3 pg 25.6-32.2 (BEAKER) (test code = 751) MEAN CORPUSCULAR HEMOGLOBIN CONC 33.9 GM/DL 32.2-35.5 (BEAKER) (test code = 752) RED CELL DISTRIBUTION WIDTH 13.1 % 11.7-14.4 (BEAKER) (test code = 412) PLATELET COUNT (BEAKER) (test 240 K/CU MM 150-450 code = 756) MEAN PLATELET VOLUME (BEAKER) 9.3 fL 9.4-12.3 L (test code = 754) NUCLEATED RED BLOOD CELLS 0 /100 WBC 0-0 (BEAKER) (test code = 413) NEUTROPHILS RELATIVE PERCENT 59 % (BEAKER) (test code = 429) LYMPHOCYTES RELATIVE PERCENT 24 % (BEAKER) (test code = 430) MONOCYTES RELATIVE PERCENT 13 % (BEAKER) (test code = 431) EOSINOPHILS RELATIVE PERCENT 2 % (BEAKER) (test code = 432) BASOPHILS RELATIVE PERCENT 1 % (BEAKER) (test code = 437) NEUTROPHILS ABSOLUTE COUNT 3.18 K/ L 1.56-6.13 (BEAKER) (test code = 670) LYMPHOCYTES ABSOLUTE COUNT 1.29 K/ L 1.18-3.74 (BEAKER) (test code = 414) MONOCYTES ABSOLUTE COUNT (BEAKER) 0.70 K/ L 0.24-0.36 H (test code = 415) EOSINOPHILS ABSOLUTE COUNT 0.11 K/ L 0.04-0.36 (BEAKER) (test code = 416) BASOPHILS ABSOLUTE COUNT (BEAKER) 0.03 K/ L 0.01-0.08 (test code = 417) IMMATURE GRANULOCYTES-RELATIVE 0.90 % 0.00-1.00 PERCENT (BEAKER) (test code = 2801) POCT-GLUCOSE [id number] 22:01:24 Test Item Value Reference Range Interpretation Comments POC-GLUCOSE METER 203 mg/dL 70-110 H : TESTED A T [facility] (BEAKER) (test code = [facility], 153) 86843: Tobacco Checkout Clerk/Techni kezia ID = [id number] for Suha Rojas POCT-GLUCOSE [id number] 16:14:38 Test Item Value Reference Range Interpretation Comments POC-GLUCOSE METER 160 mg/dL 70-110 H : TESTED A T [facility] 67[facility] (BEAKER) (test code = [facility], 1538) 58241: Tobacco Checkout Clerk/Techni kezia ID = [id number] for Le onard, Lulú POCT-GLUCOSE [id number] 12:07:59 Test Item Value Reference Range Interpretation Comments POC-GLUCOSE METER 167 mg/dL 70-110 H : TESTED A T [facility] 67[facility] (BEAKER) (test code = [facility], 1538) 49471: Tobacco Checkout Clerk/Techni kezia ID = [id number] for Le onard, Lulú POCT-GLUCOSE [id number] 07:01:01 Test Item Value Reference Range Interpretation Comments POC-GLUCOSE METER 161 mg/dL 70-110 H : TESTED A T [facility] 67[address] (BEAKER) (test code = [facility] [place], 1538) 92979: Tobacco Checkout Clerk/Techni kezia ID = [id number] for JIMENEZ GRANADOS BASIC METABOLIC [id number] 06:25:40 Test Item Value Reference Range Interpretation Comments SODIUM (BEAKER) 137 meq/L 136-145 (test code = 381) POTASSIUM 2.8 meq/L 3.5-5.1 L (BEAKER) (test code = 379) CHLORIDE (BEAKER) 110 meq/L 98-107 H (test code = 382) CO2 (BEAKER) 21 meq/L 22-29 L (test code = 355) BLOOD UREA 7 mg/dL 7-21 NITROGEN (BEAKER) (test code = 354) CREATININE 0.59 mg/dL 0.57-1.25 (BEAKER) (test code = 358) GLUCOSE RANDOM 148 mg/dL 70-105 H (BEAKER) (test code = 652) CALCIUM (BEAKER) 7.4 mg/dL 8.4-10.2 L (test code = 697) EGFR (BEAKER) 104 Interpretatio n of eGFR (test code = mL/min/1.73 values Stage De scription 1092) sq m Result G1 Bronwyn l or high >=90 G2 Mildly decreased 60-89 G3a Mildl y to moderately 45-5 9 G3b Moderately to s everely 30-44 G4 Severl y decreased 15-29 G5 Kidne y failure <15Reported eGF R is based on the CKD-EPI 2021 equation that d oes not use a race coefficientEsti mated GFR is not as accur ate as Creatinine Nely dumont in predicting glom erular filtration rate . Estimated GFR is not appl icable for dialysis patien ts Tobacco Checkout Clerk ID - [id number] 06:17:56 Test Item Value Reference Range Interpretation Comments MAGNESIUM (BEAKER) (test code = 1.4 mg/dL 1.6-2.6 L 627) Tobacco Checkout Clerk ID - [id number] 06:17:56 Test Item Value Reference Range Interpretation Comments PHOSPHORUS (BEAKER) (test code = 2.7 mg/dL 2.3-4.7 604) Tobacco Checkout Clerk ID - marioCBC W/PLT COUNT & AUTO [id number] 05:48:43 Test Item Value Reference Range Interpretation Comments WHITE BLOOD CELL COUNT (BEAKER) 5.4 K/ L 3.5-10.5 (test code = 775) RED BLOOD CELL COUNT (BEAKER) 3.22 M/ L 3.93-5.22 L (test code = 761) HEMOGLOBIN (BEAKER) (test code = 9.4 GM/DL 11.2-15.7 L 410) HEMATOCRIT (BEAKER) (test code = 27.9 % 34.1-44.9 L 411) MEAN CORPUSCULAR VOLUME (BEAKER) 87 fL 79-95 (test code = 753) MEAN CORPUSCULAR HEMOGLOBIN 29.2 pg 25.6-32.2 (BEAKER) (test code = 751) MEAN CORPUSCULAR HEMOGLOBIN CONC 33.7 GM/DL 32.2-35.5 (BEAKER) (test code = 752) RED CELL DISTRIBUTION WIDTH 13.0 % 11.7-14.4 (BEAKER) (test code = 412) PLATELET COUNT (BEAKER) (test 178 K/CU MM 150-450 code = 756) MEAN PLATELET VOLUME (BEAKER) 9.6 fL 9.4-12.3 (test code = 754) NUCLEATED RED BLOOD CELLS 0 /100 WBC 0-0 (BEAKER) (test code = 413) NEUTROPHILS RELATIVE PERCENT 67 % (BEAKER) (test code = 429) LYMPHOCYTES RELATIVE PERCENT 15 % (BEAKER) (test code = 430) MONOCYTES RELATIVE PERCENT 14 % (BEAKER) (test code = 431) EOSINOPHILS RELATIVE PERCENT 2 % (BEAKER) (test code = 432) BASOPHILS RELATIVE PERCENT 1 % (BEAKER) (test code = 437) NEUTROPHILS ABSOLUTE COUNT 3.65 K/ L 1.56-6.13 (BEAKER) (test code = 670) LYMPHOCYTES ABSOLUTE COUNT 0.81 K/ L 1.18-3.74 L (BEAKER) (test code = 414) MONOCYTES ABSOLUTE COUNT (BEAKER) 0.78 K/ L 0.24-0.36 H (test code = 415) EOSINOPHILS ABSOLUTE COUNT 0.11 K/ L 0.04-0.36 (BEAKER) (test code = 416) BASOPHILS ABSOLUTE COUNT (BEAKER) 0.03 K/ L 0.01-0.08 (test code = 417) IMMATURE GRANULOCYTES-RELATIVE 0.60 % 0.00-1.00 PERCENT (BEAKER) (test code = 2801) POCT-GLUCOSE [id number] 21:40:51 Test Item Value Reference Range Interpretation Comments POC-GLUCOSE METER 150 mg/dL 70-110 H : TESTED A T [facility] 6720 (BEAKER) (test code = [facility] [place], 1538) 08126: Tobacco Checkout Clerk/Techni kezia ID = [id number] for JIMENEZ GRANADOS RAD, ABDOMEN/KUB, 1 VIEW [id number] 21:27:00Reason for exam:->bloating, abdominal painShould this be performed at the bedside?->Yes [facility] 1965 Sex: FFINAL REPORT EXAM/TECHNIQUE: RAD, ABDOMEN/KUB, 1 VIEW AP INDICATION: Bloating, abdominal pain. COMPARISON: CT abdomen pelvis from 07/12/2022. FINDINGS: Left percutaneous nephrostomy tube projects over the left abdomen. Small bowel is not well-visualized due to paucity of intraluminal gas.No acute osseous process. Impression: Nonspecific bowel gas pattern. Signed: [facility] Verified Date/Time: 07/13/2022 21:27:15 BASIC METABOLIC [id number] 09:39:24 Test Item Value Reference Range Interpretation Comments SODIUM (BEAKER) 134 meq/L 136-145 L (test code = 381) POTASSIUM 3.5 meq/L 3.5-5.1 (BEAKER) (test code = 379) CHLORIDE (BEAKER) 105 meq/L 98-107 (test code = 382) CO2 (BEAKER) 21 meq/L 22-29 L (test code = 355) BLOOD UREA 12 mg/dL 7-21 NITROGEN (BEAKER) (test code = 354) CREATININE 0.66 mg/dL 0.57-1.25 (BEAKER) (test code = 358) GLUCOSE RANDOM 160 mg/dL 70-105 H (BEAKER) (test code = 652) CALCIUM (BEAKER) 8.3 mg/dL 8.4-10.2 L (test code = 697) EGFR (BEAKER) 101 Interpretatio n of eGFR (test code = mL/min/1.73 values Stage De scription 1092) sq m Result G1 Bronwyn l or high >=90 G2 Mildly decreased 60-89 G3a Mildl y to moderately 45-5 9 G3b Moderately to s everely 30-44 G4 Severl y decreased 15-29 G5 Kidney failure <15Reported eGF R is based on the CKD-EPI 2020 equation that d oes not use a race coefficientEsti mated GFR is not as accur ate as Creatinine Nely dumont in predicting glom erular filtration rate . Estimated GFR is not appl icable for dialysis patien ts Tobacco Checkout Clerk ID - MITCHPOCT-GLUCOSE [id number] 09:18:52 Test Item Value Reference Range Interpretation Comments POC-GLUCOSE METER 150 mg/dL 70-110 H : TESTED A T [facility] 6720 (BEAKER) (test code = [facility] Mortensen [facility], 1538) 33851: Tobacco Checkout Clerk/Techni kezia ID = [id number] for An ater (V), Lashanda CBC W/PLT COUNT & AUTO [id number] 06:43:55 Test Item Value Reference Range Interpretation Comments WHITE BLOOD CELL COUNT (BEAKER) 8.4 K/ L 3.5-10.5 (test code = 775) RED BLOOD CELL COUNT (BEAKER) 3.86 M/ L 3.93-5.22 L (test code = 761) HEMOGLOBIN (BEAKER) (test code = 11.1 GM/DL 11.2-15.7 L 410) HEMATOCRIT (BEAKER) (test code = 33.1 % 34.1-44.9 L 411) MEAN CORPUSCULAR VOLUME (BEAKER) 86 fL 79-95 (test code = 753) MEAN CORPUSCULAR HEMOGLOBIN 28.8 pg 25.6-32.2 (BEAKER) (test code = 751) MEAN CORPUSCULAR HEMOGLOBIN CONC 33.5 GM/DL 32.2-35.5 (BEAKER) (test code = 752) RED CELL DISTRIBUTION WIDTH 13.1 % 11.7-14.4 (BEAKER) (test code = 412) PLATELET COUNT (BEAKER) (test 204 K/CU MM 150-450 code = 756) MEAN PLATELET VOLUME (BEAKER) 10.3 fL 9.4-12.3 (test code = 754) NUCLEATED RED BLOOD CELLS 0 /100 WBC 0-0 (BEAKER) (test code = 413) NEUTROPHILS RELATIVE PERCENT 78 % (BEAKER) (test code = 429) LYMPHOCYTES RELATIVE PERCENT 9 % (BEAKER) (test code = 430) MONOCYTES RELATIVE PERCENT 12 % (BEAKER) (test code = 431) EOSINOPHILS RELATIVE PERCENT 1 % (BEAKER) (test code = 432) BASOPHILS RELATIVE PERCENT 0 % (BEAKER) (test code = 437) NEUTROPHILS ABSOLUTE COUNT 6.50 K/ L 1.56-6.13 H (BEAKER) (test code = 670) LYMPHOCYTES ABSOLUTE COUNT 0.78 K/ L 1.18-3.74 L (BEAKER) (test code = 414) MONOCYTES ABSOLUTE COUNT (BEAKER) 0.98 K/ L 0.24-0.36 H (test code = 415) EOSINOPHILS ABSOLUTE COUNT 0.04 K/ L 0.04-0.36 (BEAKER) (test code = 416) BASOPHILS ABSOLUTE COUNT (BEAKER) 0.02 K/ L 0.01-0.08 (test code = 417) IMMATURE GRANULOCYTES-RELATIVE 0.50 % 0.00-1.00 PERCENT (BEAKER) (test code = 2801) BLOOD CULTURE IDENTIFICATION [id number] 04:32:12 Test Item Value Reference Interpretation Comments Range CARBAPENEM-RESISTANCE Not detected Not detected Note: Antimicrobial GENE (test code = resistance can occur ) via multiple mechanisms. A N ot Detected result for the [employer] antimicrobial resistance gene assays does not indica te antimicrobial susceptibility. Subculturing is required for sp ecies identification and susceptibility testing of isolates.WAR NEETA: A Not Detected re sult for the KPC gen e does not indicate susceptibility to carbapenems. Gr am negative bacter ia can be resistant to carbapenems by mechanisms othe r than carrying the KP C gene. ENTEROCOCCUS-BEAKER Not detected Not detected (test code = 8254155) LISTERIA MONOCYTOGENES Not detected Not detected (test code = 2309887) STAPHYLOCOCCUS (test Not detected Not detected code = 6010200) STAPHYLOCOCCUS AUREUS Not detected Not detected (test code = 0731300) STREPTOCOCCUS (test Not detected Not detected code = 7273092) STREPTOCOCCUS Not detected Not detected AGALACTIAE (GROUP B) (test code = 3883871) STREPTOCOCCUS Not detected Not detected PNEUMONIAE (test code = 2346938) STREPTOCOCCUS PYOGENES Not detected Not detected (GROUP A) (test code = 9302410) ACINETOBACTER BAUMANNII Not detected Not detected (test code = 9383890) ENTEROBACTERIACEAE Detected Not detected A Gram-nega tive (test code = 0794307) bacter ium in the family Enterobacteriac eae was identified. Fir st Line Therapy: Merope nem or CefepimeThis te st does not evaluate fo r ESBL This organism w as NOT identified as E . coli, Klebsiella pneu moniae, Klebsiella oxyt oca, Proteus sp., Se rratia marscesens, or Enterobacter Cl oaceae complex. See cu lture results for def initive identification. Reference Range : Not Detected ENTEROBACTER CLOACOE Not detected Not detected COMPLEX (test code = ) ESCHERICHIA COLI (test Not detected Not detected code = 3316024) KLEBSIELLA OXYTOCA Not detected Not detected (test code = 9488276) KLEBSIELLA PNEUMONIAE Not detected Not detected (test code = 1650) PROTEUS (test code = Not detected Not detected 2439399) SERRATIA MARCESCENS Not detected Not detected (test code = 0368255) HAEMOPHILUS INFLUENZAE Not detected Not detected (test code = 5990875) NEISSERIA MENINGITIDIS Not detected Not detected (test code = 9570030) PSEUDOMONAS Not detected Not detected AERUGINOSA-BEAKER (test code = 9342833) JAMIE ALBICANS (test Not detected Not detected code = 9817242) JAMIE GLABRATA (test Not detected Not detected code = 8927191) JAMIE KRUSEI (test Not detected Not detected code = 3593574) JAMIE PARAPSILOSIS Not detected Not detected (test code = 6549664) JAMIE TROPICALIS Not detected Not detected (BKR) (test code = 8181206) Other bacteria and resistance markers not targeted by this PCR panel cannot be excluded; therefore clinical correlation and follow up of serology, culture results, and other molecular studies is required. The results are not intended to be used as the sole means for clinical diagnosis or patient management decisions. This sample was tested at the [facility] using the [employer] Blood Culture ID Panel. It is FDA cleared and has been verified and approved by the [facility] for clinical use. This laboratory is CLIA-certified and College ofAmerican Pathologists (CAP)-accredited to perform high complexity testing.POCT-GLUCOSE [id number] 01:25:08 Test Item Value Reference Range Interpretation Comments POC-GLUCOSE METER 147 mg/dL 70-110 H : TESTED A T [facility] 6720 (HAI) (test code = WHIT[facility] Balbina [facility], 1538) 40951: Tobacco Checkout Clerk/Techni kezia ID = [id number] for Enrrique Nixon SARS-COV2/RT-PCR ([facility])2022-07-13 00:20:22 Test Item Value Reference Range Interpretation Comments SARS-COV2/RT-PCR Negative Negative The SARS-Co V-2 target (test code = nucleic acids a re not 1849417) detected in thi s specimen. Negative result s do not preclude SARS-C oV-2 infection and s hould not be used as the luann e basis for patient managem ent decisions. Nega tive results must be combine d with clinical observ ations, patient history , and epidemiological information. A false negativ e result may occur if a spec imen is improperly derw ected, transported or handled. This SARS CoV-2 test is a rapid, real-time RT-PC R test intended for th e qualitative detection of nu cleic acid from SARS-CoV-2 in a nasopharyngeal swab specimen collected from individuals suspected of CO VID-19 by their healthcar e provider. This test has been authorized by FDA under an EUA for use by authorized laboratories. This test is only authorized for the duration of the declaration that circumstances exist justifying the authorization of emergency use of in vitro diagnostic tests for detection and/or diagnosis of COVID-19 under Section 564(b)(1) of the Federal Food, Drug and Cosmetic Act, 21 U.S.C. 360bbb-3(b)(1), unless the authorization is terminated or revoked sooner. Fact Sheet for Healthcare Providers: https://www.Asuum m/Documents/Xpert%20Xpress%20SARS%20CoV-2/Fact%20Sheets/302-3802%24GRDW-AIJ-4%20 HEALTHCARE%20PROVIDERS%20FACT%20SHEET.pdf Fact Sheet for Healthcare Patients: https://www.DewMobile/Documents/Xpert%20Xp ress%20SARS%20CoV-2/Fact%20Sheets/302-3801%61GPGV-FEJ-3%20PATIENT%20FACT%20SHEET .pdfLACTIC ACID, [id number] 23:01:30 Test Item Value Reference Range Interpretation Comments LACTATE BLOOD VENOUS (2) (BEAKER) 0.74 mmol/L 0.50-2.20 (test code = 2872) Tobacco Checkout Clerk ID - DBURINALYSIS W/ REFLEX URINE [id number] 22:01:46 Test Item Value Reference Range Interpretation Comments COLOR (BEAKER) (test code = 470) Yellow CLARITY (BEAKER) (test code = 469) Hazy SPECIFIC GRAVITY UA (BEAKER) (test > 1.001-1.035 H code = 468) PH UA (BEAKER) (test code = 467) 7.5 5.0-8.0 PROTEIN UA (BEAKER) (test code = 70 mg/dL Negative A 464) GLUCOSE UA (BEAKER) (test code = 500 mg/dL Negative A 365) KETONES UA (BEAKER) (test code = 60 mg/dL Negative A 371) BILIRUBIN UA (BEAKER) (test code = Negative Negative 462) BLOOD UA (BEAKER) (test code = Trace Negative A 461) NITRITE UA (BEAKER) (test code = Negative Negative 465) LEUKOCYTE ESTERASE UA (BEAKER) Moderate Negative A (test code = 466) UROBILINOGEN UA (BEAKER) (test 2 0.2-1.0 H code = 463) RBC UA (BEAKER) (test code = 519) 5 /HPF WBC UA (BEAKER) (test code = 520) 28 /HPF BACTERIA (BEAKER) (test code = Occasional 517) MUCUS (BEAKER) (test code = 1574) Rare SQUAMOUS EPITHELIAL (BEAKER) (test 1 /HPF code = 516) SOURCE(BEAKER) (test code = 2795) Tobacco Checkout Clerk ID - [auto]Tobacco Checkout Clerk ID - SILVIA [id number] 18:11:00Unlisted Reason for Exam - Click Yes and Enter Reason Below->YesUnlisted Reason for Exam->Nephtube, sepsis, L abdominal painProtocol Please Specify:->Standard ProtocolWill this procedure require oral contrast?->No [facility] 1965 Sex: FFINAL REPORT TECHNIQUE: CT of the abdomen and pelvis WITH intravenous contrast and WITHOUT oral contrast. Dose modulation, iterative reconstruction, and/or weight-based adjustment of the mA/kV was utilized to reduce the radiation dose to as low as reasonably achievable. INDICATION: Unlisted Reason for ExamNeph tube, sepsis, L abdominal pain. COMPARISON: CT abdomen and pelvis [facility] to 07/25/2022 at 1:15 AM (report not available at time of image interpretation)FINDINGS: LOWER THORAX: Lung bases are clear. Coronary artery calcifications are noted. HEPATOBILIARY: No focal hepatic lesions. Gallbladder is unremarkable. No abnormal biliary ductal dilatation.SPLEEN: No splenomegaly.ADRENALS: No adrenal nodules. PANCREAS: No focal masses or ductal dilatation.LYMPHNODES: No lymphadenopathy.KIDNEYS/URETERS: There has been interval placement of a left nephrostomy tube. Resolution of previously noted hydronephrosis. There are some areas of patchy hypoenhancement involving the cortex of the left kidney compatible with pyelonephritis. No discrete collection.PELVIC ORGANS/BLADDER: 3 cm partially calcified partially exophytic uterine fundal fibroid on the left, unchanged. VESSELS: Scattered aortoiliac atherosclerotic calcifications.PERITONEUM/RETROPERITONEUM: Trace pelvic free fluid, new since the prior examination. No free air. GI TRACT: No distention or wall thickening. BONES AND SOFT TISSUES: Unremarkable. IMPRESSION: 1. Placement of a left nephrostomy tube with resolution of previously noted hydronephrosis. New areas of patchy hypoenhancement within the left kidney compatible with pyelonephritis. No discrete collection.2. New trace pelvic free fluid. Signed:Yumi Whitmore MDReport Verified Date/Time: 07/12/2022 18:11:53 RAD, CHEST, 1 VIEW, NON [id number] 16:47:00Reason for exam:->ABDOMINAL PAINReason for exam:- >WOUND CHECKShould this be performed at the bedside?->Yes [facility] 1965 Sex: FFINAL REPORT Chest, 1 view, 07/12/2022 3:30 PM. History: Abdominal pain. Comparison: 06/10/2022. Discussion: The patient is rotated. The cardiomediastinal silhouette and pulmonary vasculatureare within normal limits for a portable exam. The lungs are clear without evidence of consolidation or effusion. The soft tissues and osseous structures are intact. IMPRESSION: No acute cardiopulmonaryabnormality. Signed: Mikhail Napoles MDReport Verified Date/Time: 07/12/2022 16:47:14 Reading Location: [facility] COMPREHENSIVE METABOLIC PANEL 2022-07-12 15:30:48 Test Item Value Reference Range Interpretation Comments TOTAL PROTEIN 7.3 gm/dL 6.0-8.3 (BEAKER) (test code = 770) ALBUMIN (BEAKER) 3.8 g/dL 3.5-5.0 (test code = 1145) ALKALINE 266 U/L 40-150 H PHOSPHATASE (BEAKER) (test code = 346) BILIRUBIN TOTAL 1.5 mg/dL 0.2-1.2 H (BEAKER) (test code = 377) SODIUM (BEAKER) 131 meq/L 136-145 L (test code = 381) POTASSIUM (BEAKER) 4.3 meq/L 3.5-5.1 (test code = 379) CHLORIDE (BEAKER) 97 meq/L 98-107 L (test code = 382) CO2 (BEAKER) (test 22 meq/L 22-29 code = 355) BLOOD UREA 11 mg/dL 7-21 NITROGEN (BEAKER) (test code = 354) CREATININE 0.78 mg/dL 0.57-1.25 (BEAKER) (test code = 358) GLUCOSE RANDOM 225 mg/dL 70-105 H (BEAKER) (test code = 652) CALCIUM (BEAKER) 9.7 mg/dL 8.4-10.2 (test code = 697) AST (SGOT) 65 U/L 5-34 H (BEAKER) (test code = 353) ALT (SGPT) 74 U/L 6-55 H (BEAKER) (test code = 347) EGFR (BEAKER) 87 Interpretatio n of eGFR (test code = 1092) mL/min/1.[address] age Description sq m Result G1 Bronwyn l or high >=90 G2 Mildly decreased 60-89 G3a Mildl y to moderately 45-5 9 G3b Moderately to s everely 30-44 G4 Severl y decreased 15-29 G5 Kidney failure <15Reported eGF R is based on the CKD-EPI 2020 equation that d oes not use a race coefficientEsti mated GFR is not as accur ate as Creatinine Nely tim in predicting glom erular filtration rate . Estimated GFR is not appl icable for dialysis patien ts Tobacco Checkout Clerk ID - [id number] 15:30:48 Test Item Value Reference Range Interpretation Comments LIPASE (BEAKER) (test code = 749) 12 U/L 8-78 Tobacco Checkout Clerk ID - BSLACTIC ACID, [id number] 15:24:44 Test Item Value Reference Range Interpretation Comments LACTATE BLOOD VENOUS 3.16 mmol/L 0.50-2.20 H Specime n slightly (2) (BEAKER) (test hemolyzed code = 2872) Tobacco Checkout Clerk ID - BSCBC W/PLT COUNT & AUTO [id number] 15:23:26 Test Item Value Reference Range Interpretation Comments WHITE BLOOD CELL COUNT (BEAKER) 10.2 K/ L 3.5-10.5 (test code = 775) RED BLOOD CELL COUNT (BEAKER) 4.41 M/ L 3.93-5.22 (test code = 761) HEMOGLOBIN (BEAKER) (test code = 12.6 GM/DL 11.2-15.7 410) HEMATOCRIT (BEAKER) (test code = 36.9 % 34.1-44.9 411) MEAN CORPUSCULAR VOLUME (BEAKER) 84 fL 79-95 (test code = 753) MEAN CORPUSCULAR HEMOGLOBIN 28.6 pg 25.6-32.2 (BEAKER) (test code = 751) MEAN CORPUSCULAR HEMOGLOBIN CONC 34.1 GM/DL 32.2-35.5 (BEAKER) (test code = 752) RED CELL DISTRIBUTION WIDTH 12.7 % 11.7-14.4 (BEAKER) (test code = 412) PLATELET COUNT (BEAKER) (test 197 K/CU MM 150-450 code = 756) MEAN PLATELET VOLUME (BEAKER) 10.2 fL 9.4-12.3 (test code = 754) NUCLEATED RED BLOOD CELLS 0 /100 WBC 0-0 (BEAKER) (test code = 413) NEUTROPHILS RELATIVE PERCENT 83 % (BEAKER) (test code = 429) LYMPHOCYTES RELATIVE PERCENT 8 % (BEAKER) (test code = 430) MONOCYTES RELATIVE PERCENT 9 % (BEAKER) (test code = 431) EOSINOPHILS RELATIVE PERCENT 0 % (BEAKER) (test code = 432) BASOPHILS RELATIVE PERCENT 0 % (BEAKER) (test code = 437) NEUTROPHILS ABSOLUTE COUNT 8.46 K/ L 1.56-6.13 H (BEAKER) (test code = 670) LYMPHOCYTES ABSOLUTE COUNT 0.77 K/ L 1.18-3.74 L (BEAKER) (test code = 414) MONOCYTES ABSOLUTE COUNT (BEAKER) 0.86 K/ L 0.24-0.36 H (test code = 415) EOSINOPHILS ABSOLUTE COUNT 0.00 K/ L 0.04-0.36 L (BEAKER) (test code = 416) BASOPHILS ABSOLUTE COUNT (BEAKER) 0.02 K/ L 0.01-0.08 (test code = 417) IMMATURE GRANULOCYTES-RELATIVE 0.40 % 0.00-1.00 PERCENT (BEAKER) (test code = 2801) [id number] 15:19:26 Test Item Value Reference Range Interpretation Comments PARTIAL THROMBOPLASTIN TIME 28.5 seconds 22.5-36.0 (BEAKER) (test code = 760) PROTHROMBIN [id number] 15:18:43 Test Item Value Reference Range Interpretation Comments PROTIME (BEAKER) (test code = 15.7 seconds 11.9-14.2 H 759) INR (BEAKER) (test code = 370) 1.33 <=5.90 RECOMMENDED COUMADIN/WARFARIN INR THERAPY RANGESSTANDARD DOSE: 2.0 - 3.0 Includes: PROPHYLAXIS for venous thrombosis, systemic embolization; TREATMENT for venous thrombosis and/or pulmonary embolus.HIGH RISK: Target INR is 2.5-3.5 for patients with mechanical heart valves.FUNGUS CULTURE, BLOOD (ISOLATOR) 2022-06-22 08:32:24 Test Item Value Reference Range Interpretation Comments CULTURE (BEAKER) (test No fungus isolated code = 1095) BLOOD [id number] 13:01:29 Test Item Value Reference Range Interpretation Comments CULTURE (BEAKER) (test No growth in 5 days code = 1095) BLOOD [id number] 13:01:28 Test Item Value Reference Range Interpretation Comments CULTURE (BEAKER) (test No growth in 5 days code = 1095) BLOOD [id number] 09:51:33 Test Item Value Reference Range Interpretation Comments CULTURE (BEAKER) A From Anaero bic Bottle (test code = Only Cutibacter ium 1095) acnes GRAM STAIN From anaerobic RESULT (BEAKER) bottle only: gram (test code = positive rods 1123) BLOOD [id number] 09:22:40 Test Item Value Reference Range Interpretation Comments CULTURE A From Anaerobic Bottle (BEAKER) (test Only Same org anism has code = 1095) been isolated f rom cultures(s) of the same body site within 3 days. Repeat identification and susceptibility testing performed only after consultation wi th the clinical microb iology laboratory.Refe r to previous cultur e of - Klebsiella aero genes GRAM STAIN From anaerobic RESULT (BEAKER) bottle only: gram (test code = negative rods 1123) BLOOD CULTURE IDENTIFICATION [id number] 05:28:03 Test Item Value Reference Range Interpretation Comments LISTERIA MONOCYTOGENES (test Not detected Not detected code = 20160208) STAPHYLOCOCCUS (test code = Not detected Not detected 1535482) STAPHYLOCOCCUS AUREUS (test code Not detected Not detected = 9536520) STREPTOCOCCUS (test code = Not detected Not detected 9195305) STREPTOCOCCUS AGALACTIAE (GROUP Not detected Not detected B) (test code = 7527327) STREPTOCOCCUS PNEUMONIAE (test Not detected Not detected code = 9357095) STREPTOCOCCUS PYOGENES (GROUP A) Not detected Not detected (test code = 0433014) ACINETOBACTER BAUMANNII (test Not detected Not detected code = 8287558) HAEMOPHILUS INFLUENZAE (test Not detected Not detected code = 5282286) NEISSERIA MENINGITIDIS (test Not detected Not detected code = 4663901) ENTEROBACTERIACEAE (test code = Not detected Not detected 5759799) ENTEROBACTER CLOACOE COMPLEX Not detected Not detected (test code = 4741477) KLEBSIELLA OXYTOCA (test code = Not detected Not detected 7422555) KLEBSIELLA PNEUMONIAE (test code Not detected Not detected = 1650) PROTEUS (test code = 7858215) Not detected Not detected SERRATIA MARCESCENS (test code = Not detected Not detected 2593068) JAMIE ALBICANS (test code = Not detected Not detected 6100920) JAMIE GLABRATA (test code = Not detected Not detected 8559649) JMAIE KRUSEI (test code = Not detected Not detected 8764407) JAMIE PARAPSILOSIS (test code Not detected Not detected = 3404460) JAMIE TROPICALIS (BKR) (test Not detected Not detected code = 8905728) ESCHERICHIA COLI (test code = Not detected Not detected 9643127) METHICILLIN-RESISTANCE GENE (test code = 2235980) VANCOMYCIN-RESISTANCE GENE (test code = 9989112) CARBAPENEM-RESISTANCE GENE (test code = 8667416) ENTEROCOCCUS-BEAKER (test code = Not detected Not detected ) PSEUDOMONAS AERUGINOSA-BEAKER Not detected Not detected (test code = ) Other bacteria and resistance markers not targeted by this PCR panel cannot be excluded; therefore clinical correlation and follow up of serology, culture results, and other molecular studies is required. The results are not intended to be used as the sole means for clinical diagnosis or patient management decisions. This sample was tested at the [facility] using the [employer] Blood Culture ID Panel. It is FDA cleared and has been verified and approved by the [facility] for clinical use. This laboratory is CLIA-certified and College ofAmerican Pathologists (CAP)-accredited to perform high complexity testing.POCT-GLUCOSE [id number] 06:54:35 Test Item Value Reference Range Interpretation Comments POC-GLUCOSE METER 142 mg/dL 70-110 H : TESTED A T [facility] 6720 (BEAKER) (test code = [place], 1538) 17250: Tobacco Checkout Clerk/Techni kezia ID = [id number] for ON UOHA, EJ BASIC METABOLIC [id number] 06:22:13 Test Item Value Reference Range Interpretation Comments SODIUM (BEAKER) 141 meq/L 136-145 (test code = 381) POTASSIUM 3.6 meq/L 3.5-5.1 (BEAKER) (test code = 379) CHLORIDE (BEAKER) 103 meq/L 98-107 (test code = 382) CO2 (BEAKER) 25 meq/L 22-29 (test code = 355) BLOOD UREA 9 mg/dL 7-21 NITROGEN (BEAKER) (test code = 354) CREATININE 0.61 mg/dL 0.57-1.25 (BEAKER) (test code = 358) GLUCOSE RANDOM 143 mg/dL 70-105 H (BEAKER) (test code = 652) CALCIUM (BEAKER) 9.5 mg/dL 8.4-10.2 (test code = 697) EGFR (BEAKER) 104 Interpretatio n of eGFR (test code = mL/min/1.73 values Stage De scription 1092) sq m Result G1 Bronwyn l or high >=90 G2 Mildly decreased 60-89 G3a Mildl y to moderately 45-5 9 G3b Moderately to s everely 30-44 G4 Severl y decreased 15-29 G5 Kidney failure <15Reported eGF R is based on the CKD-EPI 2020 equation that d oes not use a race coefficientEsti mated GFR is not as accur ate as Creatinine Nely tim in predicting glom erular filtration rate . Estimated GFR is not appl icable for dialysis patien ts Tobacco Checkout Clerk ID - MARCOCBC W/PLT COUNT & AUTO [id number] 05:54:40 Test Item Value Reference Range Interpretation Comments WHITE BLOOD CELL COUNT (BEAKER) 7.3 K/ L 3.5-10.5 (test code = 775) RED BLOOD CELL COUNT (BEAKER) 4.40 M/ L 3.93-5.22 (test code = 761) HEMOGLOBIN (BEAKER) (test code = 12.9 GM/DL 11.2-15.7 410) HEMATOCRIT (BEAKER) (test code = 37.4 % 34.1-44.9 411) MEAN CORPUSCULAR VOLUME (BEAKER) 85 fL 79-95 (test code = 753) MEAN CORPUSCULAR HEMOGLOBIN 29.3 pg 25.6-32.2 (BEAKER) (test code = 751) MEAN CORPUSCULAR HEMOGLOBIN CONC 34.5 GM/DL 32.2-35.5 (BEAKER) (test code = 752) RED CELL DISTRIBUTION WIDTH 12.8 % 11.7-14.4 (BEAKER) (test code = 412) PLATELET COUNT (BEAKER) (test 260 K/CU MM 150-450 code = 756) MEAN PLATELET VOLUME (BEAKER) 9.3 fL 9.4-12.3 L (test code = 754) NUCLEATED RED BLOOD CELLS 0 /100 WBC 0-0 (BEAKER) (test code = 413) NEUTROPHILS RELATIVE PERCENT 63 % (BEAKER) (test code = 429) LYMPHOCYTES RELATIVE PERCENT 22 % (BEAKER) (test code = 430) MONOCYTES RELATIVE PERCENT 11 % (BEAKER) (test code = 431) EOSINOPHILS RELATIVE PERCENT 1 % (BEAKER) (test code = 432) BASOPHILS RELATIVE PERCENT 1 % (BEAKER) (test code = 437) NEUTROPHILS ABSOLUTE COUNT 4.60 K/ L 1.56-6.13 (BEAKER) (test code = 670) LYMPHOCYTES ABSOLUTE COUNT 1.61 K/ L 1.18-3.74 (BEAKER) (test code = 414) MONOCYTES ABSOLUTE COUNT (BEAKER) 0.78 K/ L 0.24-0.36 H (test code = 415) EOSINOPHILS ABSOLUTE COUNT 0.10 K/ L 0.04-0.36 (BEAKER) (test code = 416) BASOPHILS ABSOLUTE COUNT (BEAKER) 0.07 K/ L 0.01-0.08 (test code = 417) IMMATURE GRANULOCYTES-RELATIVE 1.80 % 0.00-1.00 H PERCENT (BEAKER) (test code = 2801) POCT-GLUCOSE [id number] 22:42:15 Test Item Value Reference Range Interpretation Comments POC-GLUCOSE METER 164 mg/dL 70-110 H : TESTED A T [facility] 6720 (BEAKER) (test code = [facility], 1538) 23[address]: Tobacco Checkout Clerk/Techni kezia ID = [id number] for ON UOHA, EJ POCT-GLUCOSE [id number] 16:29:32 Test Item Value Reference Range Interpretation Comments POC-GLUCOSE METER 136 mg/dL 70-110 H : TESTED A T [facility] 6720 (BEAKER) (test code = [facility], 1538) 41509: Tobacco Checkout Clerk/Techni kezia ID = [id number] for Al Justina jerez POCT-GLUCOSE [id number] 12:29:26 Test Item Value Reference Range Interpretation Comments POC-GLUCOSE METER 231 mg/dL 70-110 H : TESTED A T [facility] 6720 (BEAKER) (test code = [facility], 1538) 13906: Tobacco Checkout Clerk/Techni kezia ID = [id number] for Al Justina jerez BLOOD [id number] 11:07:07 Test Item Value Reference Range Interpretation Comments CULTURE A From Aerobic An d (BEAKER) (test Anaerobic Bot tles Same code = 1095) organism has be en isolated from cultures(s) of the same body site and collection date . Repeat identifi cation and susceptibil ity testing perform ed only after consultat ion with the clinic al microbiology laboratory.Refe r to previous cultur e of - Klebsiella aero genes GRAM STAIN From aerobic and RESULT (BEAKER) anaerobic (test code = bottles: gram 1123) negative rods The specimen volume collected for this blood culture was below the optimum (10 mL per bottle or 20 mL total). Use of lower volumes may adversely affect recovery and/or detection times of some organisms.BLOOD [id number] 11:05:36 Test Item Value Reference Range Interpretation Comments CULTURE (BEAKER) (test KLEBSIELLA A From Aerobic And code = 1095) AEROGENES Anaerobic Bottles Klebsiella aerogenes Amikacin (test code = S 1) Aztreonam (test code = S 32) Cefepime (test code = S 51) Cefoxitin (test code = R 68) Ceftazidime (test code S = 27) Ceftriaxone (test code S = 52) Ertapenem (test code = S 38) Gentamicin (test code = S 18) Levofloxacin (test code S = 22) Meropenem (test code = S 34) Piperacillin + S Tazobactam (test code = 29) Tetracycline (test code S = 2) Tobramycin (test code = S 25) Trimethoprim + S Sulfamethoxazole (test code = 47) GRAM STAIN RESULT From aerobic and (BEAKER) (test code = anaerobic 1123) bottles: gram negative rods The specimen volume collected for this blood culture was below the optimum (10 mL per bottle or 20 mL total). Use of lower volumes may adversely affect recovery and/or detection times of some organisms.BASIC METABOLIC PANEL 2022-06-13 06:51:01 Test Item Value Reference Range Interpretation Comments SODIUM (BEAKER) 140 meq/L 136-145 (test code = 381) POTASSIUM 4.1 meq/L 3.5-5.1 (BEAKER) (test code = 379) CHLORIDE (BEAKER) 106 meq/L 98-107 (test code = 382) CO2 (BEAKER) 24 meq/L 22-29 (test code = 355) BLOOD UREA 12 mg/dL 7-21 NITROGEN (BEAKER) (test code = 354) CREATININE 0.68 mg/dL 0.57-1.25 (BEAKER) (test code = 358) GLUCOSE RANDOM 140 mg/dL 70-105 H (BEAKER) (test code = 652) CALCIUM (BEAKER) 9.3 mg/dL 8.4-10.2 (test code = 697) EGFR (BEAKER) 101 Interpretatio n of eGFR (test code = mL/min/1.73 values Stage De scription 1092) sq m Result G1 Bronwyn l or high >=90 G2 Mildly decreased 60-89 G3a Mildl y to moderately 45-5 9 G3b Moderately to s everely 30-44 G4 Severl y decreased 15-29 G5 Kidney failure <15Reported eGF R is based on the CKD-EPI 2021 equation that d oes not use a race coefficientEsti mated GFR is not as accur ate as Creatinine Nely dumont in predicting glom erular filtration rate . Estimated GFR is not appl icable for dialysis patien ts Tobacco Checkout Clerk ID - MARCOCBC W/PLT COUNT & AUTO [id number] 06:36:13 Test Item Value Reference Range Interpretation Comments WHITE BLOOD CELL COUNT (BEAKER) 9.9 K/ L 3.5-10.5 (test code = 775) RED BLOOD CELL COUNT (BEAKER) 4.12 M/ L 3.93-5.22 (test code = 761) HEMOGLOBIN (BEAKER) (test code = 12.1 GM/DL 11.2-15.7 410) HEMATOCRIT (BEAKER) (test code = 35.7 % 34.1-44.9 411) MEAN CORPUSCULAR VOLUME (BEAKER) 87 fL 79-95 (test code = 753) MEAN CORPUSCULAR HEMOGLOBIN 29.4 pg 25.6-32.2 (BEAKER) (test code = 751) MEAN CORPUSCULAR HEMOGLOBIN CONC 33.9 GM/DL 32.2-35.5 (BEAKER) (test code = 752) RED CELL DISTRIBUTION WIDTH 13.3 % 11.7-14.4 (BEAKER) (test code = 412) PLATELET COUNT (BEAKER) (test 211 K/CU MM 150-450 code = 756) MEAN PLATELET VOLUME (BEAKER) 9.3 fL 9.4-12.3 L (test code = 754) NUCLEATED RED BLOOD CELLS 0 /100 WBC 0-0 (BEAKER) (test code = 413) NEUTROPHILS RELATIVE PERCENT 79 % (BEAKER) (test code = 429) LYMPHOCYTES RELATIVE PERCENT 12 % (BEAKER) (test code = 430) MONOCYTES RELATIVE PERCENT 7 % (BEAKER) (test code = 431) EOSINOPHILS RELATIVE PERCENT 1 % (BEAKER) (test code = 432) BASOPHILS RELATIVE PERCENT 0 % (BEAKER) (test code = 437) NEUTROPHILS ABSOLUTE COUNT 7.83 K/ L 1.56-6.13 H (BEAKER) (test code = 670) LYMPHOCYTES ABSOLUTE COUNT 1.16 K/ L 1.18-3.74 L (BEAKER) (test code = 414) MONOCYTES ABSOLUTE COUNT (BEAKER) 0.65 K/ L 0.24-0.36 H (test code = 415) EOSINOPHILS ABSOLUTE COUNT 0.13 K/ L 0.04-0.36 (BEAKER) (test code = 416) BASOPHILS ABSOLUTE COUNT (BEAKER) 0.03 K/ L 0.01-0.08 (test code = 417) IMMATURE GRANULOCYTES-RELATIVE 1.10 % 0.00-1.00 H PERCENT (BEAKER) (test code = 2801) POCT-GLUCOSE [id number] 06:31:04 Test Item Value Reference Range Interpretation Comments POC-GLUCOSE METER 146 mg/dL 70-110 H : TESTED A T [facility] 6720 (BEAKER) (test code = [facility], 1538) 17801: Tobacco Checkout Clerk/Techni kezia ID = [id number] for MUNIR CHESTER POCT-GLUCOSE [id number] 21:35:43 Test Item Value Reference Range Interpretation Comments POC-GLUCOSE METER 179 mg/dL 70-110 H : TESTED A T [facility] 6720 (BEAKER) (test code = [facility], 1538) 55506: Tobacco Checkout Clerk/Techni kezia ID = [id number] for MUNIR CHESTER ANG, NEPHROSTOMY, PERC, EXTERNAL [id number] 13:30:00 [facility] 1965 Sex: FFINAL REPORT Left percutaneous nephrostomy catheter placement Clinical History: Left hydronephrosis. Modality: Sonography and fluoroscopy Editor Book: Jorgito Mosher MD. Flat Folding Machine Operator: None. Sedation: Moderate sedation was administered. 50 mcg of fentanyl IV only was used for moderate sedation monitored under my direction. Total intra-service time of sedation was 20 minutes. The patient's vital signs were monitored throughout the procedure and recorded in the patient's medical record by the nurse. Estimated Blood Loss: Less than 5 cc. Specimen: None. Fluoroscopy Time: 1.2 min.Reference Air Kerma (Ka, r): Due to equipment malfunction, a fluoroscopic dose was not provided. Technique/findings: Informed written consent was obtained. Discussion of risks, benefits, and alternatives were made with the patient. The patient expressed understanding and agreed to proceed. A universal timeout was performed prior to starting the procedure. All elements maximal sterile barrier technique was util ized for this procedure, including utilization of sterile scrub solution for skin prep, a large sterile sheet to cover the areas of the patient that were not prepped, and hand hygiene, mask, head covering, and sterile gown for performing radiologist and scrub technologist. Initial ultrasound images demonstrate mild left-sided hydronephrosis. 2% lidocaine was used for local anesthesia. Using ultrasound guidance, following acquisition of permanent images, a 21-gauge Chiba needle was advanced into an inferior pole calyx. Return of urine and contrast injection confirmed intraluminal positioning. A 0.018 inch wire was advanced and the needle into the proximal ureter. The needle was exchanged for an AccuStick sheath. A 0.035 inch Amplatz wire was advanced through the AccuStick sheath into the proximal ureter. The tract was dilated and an 8.5 Estonian drainage catheter was advanced over wire with pigtailformed within the left renal pelvis. Gentle nephrostogram demonstrates appropriate positioning of the catheter and stricture in the proximal ureter. The catheter was fixed to the skin with silk suture and attached to gravity drainage. The patient tolerated the procedure well and left the department instable condition. Impression: Successful ultrasound/fluoroscopic guided left percutaneous nephrostomy catheter placement as detailed above. Signed: Jorgito Mosher MDReport Verified Date/Time: 06/12/2022 13:30:01 Reading Location: [place] [address] Angio Body Reading Room POCT-GLUCOSE METER 2022-06-12 12:55:33 Test Item Value Reference Range Interpretation Comments POC-GLUCOSE METER 97 mg/dL 70-110 : TESTED A T [facility] 6720 (BEAKER) (test code = [facility], 1538) 54035: Tobacco Checkout Clerk/Techni kezia ID = [id number] for Justina Hatch URINE [id number] 09:08:03 Test Item Value Reference Range Interpretation Comments CULTURE (BEAKER) (test <10,000 col/mL skin code = 1095) aisha POCT-GLUCOSE [id number] 06:21:34 Test Item Value Reference Range Interpretation Comments POC-GLUCOSE METER 132 mg/dL 70-110 H : TESTED A T [facility] 6720 (BEAKER) (test code = WHITNEY Mortensen [facility], 1538) 31334: Tobacco Checkout Clerk/Techni kezia ID = [id number] for Ranjana Hawkins COMPREHENSIVE METABOLIC [id number] 05:31:45 Test Item Value Reference Range Interpretation Comments TOTAL PROTEIN 6.1 gm/dL 6.0-8.3 (BEAKER) (test code = 770) ALBUMIN (BEAKER) 3.2 g/dL 3.5-5.0 L (test code = 1145) ALKALINE 269 U/L 40-150 H PHOSPHATASE (BEAKER) (test code = 346) BILIRUBIN TOTAL 0.8 mg/dL 0.2-1.2 (BEAKER) (test code = 377) SODIUM (BEAKER) 138 meq/L 136-145 (test code = 381) POTASSIUM (BEAKER) 4.0 meq/L 3.5-5.1 (test code = 379) CHLORIDE (BEAKER) 108 meq/L 98-107 H (test code = 382) CO2 (BEAKER) (test 17 meq/L 22-29 L code = 355) BLOOD UREA 14 mg/dL 7-21 NITROGEN (BEAKER) (test code = 354) CREATININE 0.74 mg/dL 0.57-1.25 (BEAKER) (test code = 358) GLUCOSE RANDOM 100 mg/dL 70-105 (BEAKER) (test code = 652) CALCIUM (BEAKER) 9.2 mg/dL 8.4-10.2 (test code = 697) AST (SGOT) 39 U/L 5-34 H (BEAKER) (test code = 353) ALT (SGPT) 35 U/L 6-55 (BEAKER) (test code = 347) EGFR (BEAKER) 94 Interpretatio n of eGFR (test code = 1092) mL/min/1.[address] age Description sq m Result G1 Bronwyn l or high >=90 G2 Mildly decreased 60-89 G3a Mildl y to moderately 45-5 9 G3b Moderately to s everely 30-44 G4 Severl y decreased 15-29 G5 Kidney failure <15Reported eGF R is based on the CKD-EPI 2020 equation that d oes not use a race coefficientEsti mated GFR is not as accur ate as Creatinine Nely tim in predicting glom erular filtration rate . Estimated GFR is not appl icable for dialysis patien ts Tobacco Checkout Clerk ID - FLAVIO WBLOOD GAS, [id number] 05:12:32 Test Item Value Reference Range Interpretation Comments PH VENOUS (BEAKER) (test code = 7.28 7.32-7.42 L 701) PCO2 VENOUS (BEAKER) (test code = 41 mm Hg 41-51 755) PO2 VENOUS (BEAKER) (test code = 40 mm Hg 25-40 702) O2 SATURATION VENOUS (BEAKER) 68.0 % 40.0-70.0 (test code = 703) HCO3 VENOUS (BEAKER) (test code = 19 mmol/L 21-29 L 705) BASE EXCESS VENOUS (BEAKER) (test -7.8 mmol/L -2.0-3.0 L code = 704) PATIENT TEMPERATURE (BEAKER) 37.0 (test code = 1818) FIO2 (BEAKER) (test code = 1819) 21.0 CBC (HEMOGRAM ONLY)2022-06-12 04:39:08 Test Item Value Reference Range Interpretation Comments WHITE BLOOD CELL COUNT (BEAKER) 15.6 K/ L 3.5-10.5 H (test code = 775) RED BLOOD CELL COUNT (BEAKER) 4.02 M/ L 3.93-5.22 (test code = 761) HEMOGLOBIN (BEAKER) (test code = 11.9 GM/DL 11.2-15.7 410) HEMATOCRIT (BEAKER) (test code = 35.4 % 34.1-44.9 411) MEAN CORPUSCULAR VOLUME (BEAKER) 88 fL 79-95 (test code = 753) MEAN CORPUSCULAR HEMOGLOBIN 29.6 pg 25.6-32.2 (BEAKER) (test code = 751) MEAN CORPUSCULAR HEMOGLOBIN CONC 33.6 GM/DL 32.2-35.5 (BEAKER) (test code = 752) RED CELL DISTRIBUTION WIDTH 13.2 % 11.7-14.4 (BEAKER) (test code = 412) PLATELET COUNT (BEAKER) (test 177 K/CU MM 150-450 code = 756) MEAN PLATELET VOLUME (BEAKER) 10.0 fL 9.4-12.3 (test code = 754) NUCLEATED RED BLOOD CELLS 0 /100 WBC 0-0 (BEAKER) (test code = 413) POCT-GLUCOSE [id number] 17:07:56 Test Item Value Reference Range Interpretation Comments POC-GLUCOSE METER 108 mg/dL 70-110 : TESTED A T [facility] 6720 ([facility]) (test code = WHITNEY Mortensen [facility], 1538) [address]: Tobacco Checkout Clerk/Techni kezia ID = [id number] for [place] GALVEZ HEMOGLOBIN [id number] 09:15:44 Test Item Value Reference Range Interpretation Comments HEMOGLOBIN A1C 10.8 % See_Comment H [Automated m essage] ELECTROPHORESIS ([facility]) The system which (test code = 3811) generated this result transmitted ref erence range: <=5.6%. The reference range was not used to int erpret this result as normal/abnormal . "The A1c is measured using a NGSP-certified method. HbA1c value equal to or greater than 6.5% as thediagnosis cutoff for diabetes. An HbA1c value of 5.7- 6.4% indicates increased risk for diabetes (prediabetes)."Tobacco Checkout Clerk ID - ADMRAD, CHEST, 1 VIEW, NON [id number] 08:12:00Reason for exam:->hypoxiaShould this be performed at the bedside?->Yes [facility] 1965 Sex: FFINAL REPORT INDICATION: hypoxia COMPARISON: None TECHNIQUE: Single frontal view of the chest. FINDINGS: Lungs and pleura: Clear lungs. No effusion.Heart and mediastinum: Normal heart size. Unremarkable mediastinal contours.Osseous structures: No acute abnormality.Other: None. IMPRESSION: No acute intrathoracic abnormality. Signed: Jen Paiz Verified Date/Time: 308:12:08 [employer] CULTURE IDENTIFICATION [id number] 07:16:33 Test Item Value Reference Interpretation Comments Range LISTERIA MONOCYTOGENES Not detected Not detected (test code = 5139390) STAPHYLOCOCCUS (test Not detected Not detected code = 3748327) STAPHYLOCOCCUS AUREUS Not detected Not detected (test code = 0590379) STREPTOCOCCUS (test Not detected Not detected code = 5738185) STREPTOCOCCUS Not detected Not detected AGALACTIAE (GROUP B) (test code = 8968904) STREPTOCOCCUS Not detected Not detected PNEUMONIAE (test code = 2205036) STREPTOCOCCUS PYOGENES Not detected Not detected (GROUP A) (test code = 5638278) ACINETOBACTER Not detected Not detected BAUMANNII (test code = 6295618) HAEMOPHILUS INFLUENZAE Not detected Not detected (test code = 7416453) NEISSERIA MENINGITIDIS Not detected Not detected (test code = 3886744) ENTEROBACTERIACEAE Detected Not detected A (test code = 0242645) ENTEROBACTER CLOACOE Not detected Not detected COMPLEX (test code = 6939170) KLEBSIELLA OXYTOCA Not detected Not detected (test code = 2986387) KLEBSIELLA PNEUMONIAE Detected Not detected A Klebsi ila (test code = 1650) pneumonia eKPC not detected (a carbapenamase gene)First-line therapy: Merope nem. De-escalate bas ed on susceptibilitie sThis test does not e valuate for ESBLReferen ce Range: Not Dete cted PROTEUS (test code = Not detected Not detected 4685281) SERRATIA MARCESCENS Not detected Not detected (test code = 0288413) JAMIE ALBICANS (test Detected Not detected A First line therapy: code = 3581113) MicafunginDe -escalate based on susceptibilitie s when patient is clin ically improvingID and Ophthalmologic consultations s trongly recommended Ref erence Range: Not Dete cted JAMIE GLABRATA (test Not detected Not detected code = 0489192) JAMIE KRUSEI (test Not detected Not detected code = 1602567) JAMIE PARAPSILOSIS Not detected Not detected (test code = 7683681) JAMIE TROPICALIS Not detected Not detected (BKR) (test code = 9827791) ESCHERICHIA COLI (test Not detected Not detected code = 5634556) METHICILLIN-RESISTANCE GENE (test code = 9466916) VANCOMYCIN-RESISTANCE GENE (test code = 4876112) CARBAPENEM-RESISTANCE Not detected Not detected Note: Antimicrobial GENE (test code = resistance can occur ) via multiple mechanisms. A N ot Detected result for the [employer] antim icrobial resistance gene assays does not indica te antimicrobial susceptibility. Subculturing is required for sp ecies identification and susceptibility testing of isolates.WAR NEETA: A Not Detected re sult for the KPC gene do es not indicate suscep tibility to carbapenems. Gram negative bacter ia can be resistant to carbapenems by mechanisms othe r than carrying the KP C gene. ENTEROCOCCUS-BEAKER Not detected Not detected (test code = 7734492) PSEUDOMONAS Not detected Not detected AERUGINOSA-BEAKER (test code = ) Other bacteria and resistance markers not targeted by this PCR panel cannot be excluded; therefore clinical correlation and follow up of serology, culture results, and other molecular studies is required. The results are not intended to be used as the sole means for clinical diagnosis or patient management decisions. This sample was tested at the [facility] using the [employer] Blood Culture ID Panel. It is FDA cleared and has been verified and approved by the [facility] for clinical use. This laboratory is CLIA-certified and College ofAmerican Pathologists (CAP)-accredited to perform high complexity testing.VANCOMYCIN LEVEL, [id number] 07:10:42 Test Item Value Reference Range Interpretation Comments VANCOMYCIN RANDOM (BEAKER) (test 8.6 ug/mL code = 523) Reference Range: No NormalsOperator ID - PIAYA LBASIC METABOLIC [id number] 06:38:30 Test Item Value Reference Range Interpretation Comments SODIUM (BEAKER) 137 meq/L 136-145 (test code = 381) POTASSIUM 3.8 meq/L 3.5-5.1 (BEAKER) (test code = 379) CHLORIDE (BEAKER) 111 meq/L 98-107 H (test code = 382) CO2 (BEAKER) 16 meq/L 22-29 L (test code = 355) BLOOD UREA 19 mg/dL 7-21 NITROGEN (BEAKER) (test code = 354) CREATININE 0.75 mg/dL 0.57-1.25 (BEAKER) (test code = 358) GLUCOSE RANDOM 109 mg/dL 70-105 H (BEAKER) (test code = 652) CALCIUM (BEAKER) 8.0 mg/dL 8.4-10.2 L (test code = 697) EGFR (BEAKER) 92 Interpretatio n of eGFR (test code = mL/min/1.73 values Stage De scription 1092) sq m Result G1 Bronwyn l or high >=90 G2 Mildly decreased 60-89 G3a Mildl y to moderately 45-5 9 G3b Moderately to s everely 30-44 G4 Severl y decreased 15-29 G5 Kidne y failure <15Reported eGF R is based on the CKD-EPI 2020 equation that d oes not use a race coefficientEsti mated GFR is not as accur ate as Creatinine Nely dumont in predicting glom erular filtration rate . Estimated GFR is not appl icable for dialysis patien ts Tobacco Checkout Clerk ID - PIAYA LCBC W/PLT COUNT & AUTO [id number] 04:02:54 Test Item Value Reference Range Interpretation Comments WHITE BLOOD CELL COUNT (BEAKER) 13.6 K/ L 3.5-10.5 H (test code = 775) RED BLOOD CELL COUNT (BEAKER) 3.92 M/ L 3.93-5.22 L (test code = 761) HEMOGLOBIN (BEAKER) (test code = 11.4 GM/DL 11.2-15.7 410) HEMATOCRIT (BEAKER) (test code = 34.6 % 34.1-44.9 411) MEAN CORPUSCULAR VOLUME (BEAKER) 88 fL 79-95 (test code = 753) MEAN CORPUSCULAR HEMOGLOBIN 29.1 pg 25.6-32.2 (BEAKER) (test code = 751) MEAN CORPUSCULAR HEMOGLOBIN CONC 32.9 GM/DL 32.2-35.5 (BEAKER) (test code = 752) RED CELL DISTRIBUTION WIDTH 13.5 % 11.7-14.4 (BEAKER) (test code = 412) PLATELET COUNT (BEAKER) (test 169 K/CU MM 150-450 code = 756) MEAN PLATELET VOLUME (BEAKER) 10.5 fL 9.4-12.3 (test code = 754) NUCLEATED RED BLOOD CELLS 0 /100 WBC 0-0 (BEAKER) (test code = 413) NEUTROPHILS RELATIVE PERCENT 85 % (BEAKER) (test code = 429) LYMPHOCYTES RELATIVE PERCENT 5 % (BEAKER) (test code = 430) MONOCYTES RELATIVE PERCENT 7 % (BEAKER) (test code = 431) EOSINOPHILS RELATIVE PERCENT 0 % (BEAKER) (test code = 432) BASOPHILS RELATIVE PERCENT 0 % (BEAKER) (test code = 437) NEUTROPHILS ABSOLUTE COUNT 11.62 K/ L 1.56-6.13 H (BEAKER) (test code = 670) LYMPHOCYTES ABSOLUTE COUNT 0.71 K/ L 1.18-3.74 L (BEAKER) (test code = 414) MONOCYTES ABSOLUTE COUNT (BEAKER) 0.99 K/ L 0.24-0.36 H (test code = 415) EOSINOPHILS ABSOLUTE COUNT 0.06 K/ L 0.04-0.36 (BEAKER) (test code = 416) BASOPHILS ABSOLUTE COUNT (BEAKER) 0.05 K/ L 0.01-0.08 (test code = 417) IMMATURE GRANULOCYTES-RELATIVE 1.40 % 0.00-1.00 H PERCENT (BEAKER) (test code = 2801) [id number]-[id number] 23:31:07 Test Item Value Reference Range Interpretation Comments POC-HEMATOCRIT 29 % 36-45 L : Tobacco Checkout Clerk/Te chnician ID = (BEAKER) (test code = 072426 for JOANNA REES 963) [id number] 23:31:07 Test Item Value Reference Range Interpretation Comments POC-GLUCOSE (BEAKER) 117 mg/dL 70-110 H : TESTE D AT [facility] 6720 (test code = 1855) [facility], [address]: Tobacco Checkout Clerk/Techni kezia ID = [id number] for JOANNA KING DUNP-[id number] 23:31:06 Test Item Value Reference Range Interpretation Comments POC-SODIUM (BEAKER) 139 meq/L 135-148 : TESTED AT [place] [address] (test code = 1542) [facility], [address]: Tobacco Checkout Clerk/Techni kezia ID = [id number] for JOANNA KING ENCK-[id number] 23:31:06 Test Item Value Reference Range Interpretation Comments POC-POTASSIUM 3.4 meq/L 3.6-5.5 L : TESTED AT [place] [address] (BEAKER) (test code [facility], = 1540) [address]: Tobacco Checkout Clerk/Techni kezia ID = [id number] for JOANNA KIGN [id number] 23:31:06 Test Item Value Reference Range Interpretation Comments POC-HEMOGLOBIN 9.9 g/dL 12.0-15.0 L : TESTED AT [place] [address] (BEAKER) (test code = [facility], 185) [address]: Tobacco Checkout Clerk/Techni kezia ID = [id number] for JOANNA KING POCT-BLOOD GASES, [id number] 23:31:00 Test Item Value Reference Range Interpretation Comments TEMP, CELSIUS-POC 97.8 (BEAKER) (test code = 1834) FIO2-POC (BEAKER) 28 (test code = 1835) PH, VENOUS-POC 7.339 7.320-7.420 : TESTED AT [place] [address] (BEAKER) (test code [facility], = 1842) [address] PCO2, VENOUS-POC 33.2 mm Hg 41.0-51.0 L If pO2 is > 180, pCO2 may (BEAKER) (test code be posit ively biased = 1843) PO2, VENOUS-POC 51.0 mm Hg 25.0-40.0 H (BEAKER) (test code = 1844) SO2, VENOUS-POC 85.0 % 40.0-70.0 H (BEAKER) (test code = 1845) HCO3, VENOUS-POC 18.0 meq/L 21.0-29.0 L (BEAKER) (test code = 1846) BASE EXCESS, -8.0 meq/L -2.0-3.0 L : Tobacco Checkout Clerk/Tech nician ID VENOUS-POC (BEAKER) = [id number] for CABRERA (test code = 1847) JOANNA POCT-GLUCOSE [id number] 22:52:12 Test Item Value Reference Range Interpretation Comments POC-GLUCOSE METER 136 mg/dL 70-110 H : TESTED A [facility] 67[facility] (BEAKER) (test code = [place], 1538) [address]: Tobacco Checkout Clerk/Techni kezia ID = [id number] for CR RAPHAEL MISHRA LACTIC ACID, [id number] 20:38:25 Test Item Value Reference Range Interpretation Comments LACTATE BLOOD VENOUS (2) (BEAKER) 1.61 mmol/L 0.50-2.20 (test code = 2872) Tobacco Checkout Clerk ID - BSURINALYSIS W/ [id number] 19:41:14 Test Item Value Reference Range Interpretation Comments COLOR (BEAKER) (test code Red = 470) CLARITY (BEAKER) (test Cloudy code = 469) SPECIFIC GRAVITY UA 1.021 1.001-1.035 (BEAKER) (test code = 468) PH UA (BEAKER) (test code 5.5 5.0-8.0 = 467) PROTEIN UA (BEAKER) (test 70 mg/dL Negative A code = 464) GLUCOSE UA (BEAKER) (test >1000 mg/dL Negative A code = 365) KETONES UA (BEAKER) (test Negative Negative code = 371) BILIRUBIN UA (BEAKER) Negative Negative (test code = 462) BLOOD UA (BEAKER) (test Large Negative A code = 461) NITRITE UA (BEAKER) (test Negative Negative code = 465) LEUKOCYTE ESTERASE UA Large Negative A (BEAKER) (test code = 466) UROBILINOGEN UA (BEAKER) 0.2 0.2-1.0 (test code = 463) RBC UA (BEAKER) (test code > /HPF = 519) WBC UA (BEAKER) (test code > /HPF = 520) SOURCE(BEAKER) (test code Urine, Nephrostomy = 2526) Tobacco Checkout Clerk ID - [auto]Tobacco Checkout Clerk ID - [id number] 18:41:16 Test Item Value Reference Range Interpretation Comments PROCALCITONIN (BEAKER) (test code 67.79 ng/mL <0.05 HH = 3036) SEPSIS RISK (ng/mL)Low: 0.05-0.50Intermediate: 0.51-2.00High: >=2.01 URINALYSIS WITHOUT [id number] 18:22:43 Test Item Value Reference Range Interpretation Comments COLOR (BEAKER) (test code = 470) Yellow CLARITY (BEAKER) (test code = Clear 469) SPECIFIC GRAVITY UA (BEAKER) 1.038 1.001-1.035 H (test code = 468) PH UA (BEAKER) (test code = 467) 6.0 5.0-8.0 PROTEIN UA (BEAKER) (test code = Negative Negative 464) GLUCOSE UA (BEAKER) (test code = >1000 mg/dL Negative A 365) KETONES UA (BEAKER) (test code = 20 mg/dL Negative A 371) BILIRUBIN UA (BEAKER) (test code Negative Negative = 462) BLOOD UA (BEAKER) (test code = Negative Negative 461) NITRITE UA (BEAKER) (test code = Negative Negative 465) LEUKOCYTE ESTERASE UA (BEAKER) Negative Negative (test code = 466) UROBILINOGEN UA (BEAKER) (test 0.2 0.2-1.0 code = 463) SOURCE(BEAKER) (test code = 2795) URINALYSIS WITH MICROSCOPIC IF [id number] 18:22:38 Test Item Value Reference Range Interpretation Comments COLOR (BEAKER) (test code = 470) Yellow CLARITY (BEAKER) (test code = Clear 469) SPECIFIC GRAVITY UA (BEAKER) 1.038 1.001-1.035 H (test code = 468) PH UA (BEAKER) (test code = 467) 6.0 5.0-8.0 PROTEIN UA (BEAKER) (test code = Negative Negative 464) GLUCOSE UA (BEAKER) (test code = >1000 mg/dL Negative A 365) KETONES UA (BEAKER) (test code = 20 mg/dL Negative A 371) BILIRUBIN UA (BEAKER) (test code Negative Negative = 462) BLOOD UA (BEAKER) (test code = Negative Negative 461) NITRITE UA (BEAKER) (test code = Negative Negative 465) LEUKOCYTE ESTERASE UA (BEAKER) Negative Negative (test code = 466) UROBILINOGEN UA (BEAKER) (test 0.2 0.2-1.0 code = 463) SOURCE(BEAKER) (test code = 2795) Tobacco Checkout Clerk ID - [auto]Tobacco Checkout Clerk ID - techLACTIC ACID, [id number] 18:13:25 Test Item Value Reference Range Interpretation Comments LACTATE BLOOD VENOUS (2) (BEAKER) 2.85 mmol/L 0.50-2.20 H (test code = 2872) Tobacco Checkout Clerk ID - BS(CELLAVISION MANUAL DIFF)2022-06-10 14:29:13 Test Item Value Reference Range Interpretation Comments NEUTROPHILS - REL 59 % (CELLAVISION)(BEAKER) (test code = 2816) MONOCYTES - REL 6 % (CELLAVISION)(BEAKER) (test code = 2818) METAMYELOCYTES - REL 4 % 0-0 H (CELLAVISION)(BEAKER) (test code = 2821) MYELOCYTES - REL 1 % 0-0 H (CELLAVISION)(BEAKER) (test code = 2822) BANDS - REL (CELLAVISION)(BEAKER) 30 % 0-10 H (test code = 2826) NEUTROPHILS - ABS 11.39 K/ul 1.56-6.13 H (CELLAVISION)(BEAKER) (test code = 2830) MONOCYTES - ABS 1.16 K/uL 0.24-0.36 H (CELLAVISION)(BEAKER) (test code = 2832) METAMYELOCYTES - ABS 0.77 K/uL 0.00-0.00 H (CELLAVISION)(BEAKER) (test code = 2836) MYELOCYTES-ABS 0.19 K/uL 0.00-0.00 H (CELLAVISION)(BEAKER) (test code = 2837) BANDS - ABS (CELLAVISION)(BEAKER) 5.79 K/uL 0.00-0.80 H (test code = 2840) TOTAL COUNTED (BEAKER) (test code 100 = 1351) WBC MORPHOLOGY (BEAKER) (test code Normal = 487) PLT MORPHOLOGY (BEAKER) (test code Normal = 486) ANISOCYTOSIS (BEAKER) (test code = 1+ few 961) POIKILOCYTES (BEAKER) (test code = 1+ few 966) IRMA CELLS (BEAKER) (test code = 1+ few 474) ARTIFACT (CELLAVISION)(BEAKER) Present (test code = 3432) PLATELET CONCENTRATION Adequate (CELLAVISION)(BEAKER) (test code = 3438) Tobacco Checkout Clerk ID - [id number] comments: Slide comments:CBC W/PLT COUNT & AUTO [id number] 14:29:12 Test Item Value Reference Range Interpretation Comments WHITE BLOOD CELL COUNT (BEAKER) 19.3 K/ L 3.5-10.5 H (test code = 775) RED BLOOD CELL COUNT (BEAKER) 4.50 M/ L 3.93-5.22 (test code = 761) HEMOGLOBIN (BEAKER) (test code = 13.4 GM/DL 11.2-15.7 410) HEMATOCRIT (BEAKER) (test code = 39.0 % 34.1-44.9 411) MEAN CORPUSCULAR VOLUME (BEAKER) 87 fL 79-95 (test code = 753) MEAN CORPUSCULAR HEMOGLOBIN 29.8 pg 25.6-32.2 (BEAKER) (test code = 751) MEAN CORPUSCULAR HEMOGLOBIN CONC 34.4 GM/DL 32.2-35.5 (BEAKER) (test code = 752) RED CELL DISTRIBUTION WIDTH 12.9 % 11.7-14.4 (BEAKER) (test code = 412) PLATELET COUNT (BEAKER) (test 185 K/CU MM 150-450 code = 756) MEAN PLATELET VOLUME (BEAKER) 9.7 fL 9.4-12.3 (test code = 754) NUCLEATED RED BLOOD CELLS 0 /100 WBC 0-0 (BEAKER) (test code = 413) COMPREHENSIVE METABOLIC [id number] 14:16:00 Test Item Value Reference Range Interpretation Comments TOTAL PROTEIN 6.1 gm/dL 6.0-8.3 (BEAKER) (test code = 770) ALBUMIN (BEAKER) 3.5 g/dL 3.5-5.0 (test code = 1145) ALKALINE 110 U/L 40-150 PHOSPHATASE (BEAKER) (test code = 346) BILIRUBIN TOTAL 1.3 mg/dL 0.2-1.2 H (BEAKER) (test code = 377) SODIUM (BEAKER) 137 meq/L 136-145 (test code = 381) POTASSIUM (BEAKER) 4.1 meq/L 3.5-5.1 (test code = 379) CHLORIDE (BEAKER) 103 meq/L 98-107 (test code = 382) CO2 (BEAKER) (test 21 meq/L 22-29 L code = 355) BLOOD UREA 18 mg/dL 7-21 NITROGEN (BEAKER) (test code = 354) CREATININE 1.46 mg/dL 0.57-1.25 H (BEAKER) (test code = 358) GLUCOSE RANDOM 241 mg/dL 70-105 H (BEAKER) (test code = 652) CALCIUM (BEAKER) 8.7 mg/dL 8.4-10.2 (test code = 697) AST (SGOT) 33 U/L 5-34 (BEAKER) (test code = 353) ALT (SGPT) 31 U/L 6-55 (BEAKER) (test code = 347) EGFR (BEAKER) 41 Interpretatio n of eGFR (test code = 1092) mL/min/1.[address] age Description sq m Result G1 Bron[place] l or high >=90 G2 Mildly decreased 60-89 G3a Mildl y to moderately 45-5 9 G3b Moderately to s everely 30-44 G4 Severl y decreased 15-29 G5 Kidney failure <15Reported eGF R is based on the CKD-EPI 2021 equation that d oes not use a race coefficientEsti mated GFR is not as accur ate as Creatinine Nely dumont in predicting glom erular filtration rate . Estimated GFR is not appl icable for dialysis patien ts Tobacco Checkout Clerk ID - RE BPROTHROMBIN TIME/[id number] 14:05:23 Test Item Value Reference Range Interpretation Comments PROTIME (BEAKER) (test code = 14.5 seconds 11.9-14.2 H 759) INR (BEAKER) (test code = 370) 1.20 <=5.90 RECOMMENDED COUMADIN/WARFARIN INR THERAPY RANGESSTANDARD DOSE: 2.0 - 3.0 Includes: PROPHYLAXIS for venous thrombosis, systemic embolization; TREATMENT for venous thrombosis and/or pulmonary embolus.HIGH RISK: Target INR is 2.5-3.5 for patients with mechanical heart valves.URINALYSIS W/ REFLEX URINE CULTURE 2022-06-10 14:01:09 Test Item Value Reference Range Interpretation Comments COLOR (BEAKER) (test code = 470) Light Yellow CLARITY (BEAKER) (test code = Clear 469) SPECIFIC GRAVITY UA (BEAKER) 1.035 1.001-1.035 (test code = 468) PH UA (BEAKER) (test code = 467) 6.0 5.0-8.0 PROTEIN UA (BEAKER) (test code = Negative Negative 464) GLUCOSE UA (BEAKER) (test code = >1000 mg/dL Negative A 365) KETONES UA (BEAKER) (test code = 60 mg/dL Negative A 371) BILIRUBIN UA (BEAKER) (test code Negative Negative = 462) BLOOD UA (BEAKER) (test code = Negative Negative 461) NITRITE UA (BEAKER) (test code = Negative Negative 465) LEUKOCYTE ESTERASE UA (BEAKER) Negative Negative (test code = 466) UROBILINOGEN UA (BEAKER) (test 0.2 0.2-1.0 code = 463) RBC UA (BEAKER) (test code = 1 /HPF 519) WBC UA (BEAKER) (test code = < /HPF 520) MUCUS (BEAKER) (test code = Rare 1574) SQUAMOUS EPITHELIAL (BEAKER) 1 /HPF (test code = 516) SOURCE(BEAKER) (test code = 3052) Tobacco Checkout Clerk ID - [auto]Tobacco Checkout Clerk ID - [auto]Tobacco Checkout Clerk ID - [id number] Antigen (Rapid)2022-06-10 02:46:00 Test Item Value Reference Range Interpretation Comments SARS-CoV-2 Antigen Negative Negative The clini иван performance (Rapid) (test code of rapid antigen = [id number]) diagnostic t estslargely depends on the circumstances i n which they are used.R apid antigen tests p erform best when the person is testedin the ea rly stages of infection wi th SARS-CoV-2 when viralload is generally hi ghest. They also may be inf ormative indiagnostic te sting situations in [facility] the person has akno wn exposure to a confirmed case of COVID-19. Rapid antigen tests can be us ed for screening testi ng in high-riskcongre gate settings in [facility] repeat testing could quicklyidentify persons with a SARS-CoV -2 infection to informinfection prevention and control nano sures, thus preventingtrans mission.Carolynn marrero: CDC.gov, Int erim Guidance for Ra pid Antigen Testingfor SARS -CoV-2- Updated 01.25;https://w ww.cdc.gov/ coronavirus/201 9-ncov/lab/ resources/antig en-tests-gu idelines.html Complete Blood Count Auto [id number] 00:15:00 Test Item Value Reference Range Interpretation Comments White Blood Count (test code = 13.4 x10 3/uL 4.8-10.8 H WBCT) Red Blood Count (test code = 4.91 x10 6/uL 4.20-5.50 N RBC) Hemoglobin (test code = HGBT) 14.6 g/dL 12.0-16.0 N Hematocrit (test code = HCTT) 41.2 % 35.0-47.0 N Mean Corpuscular Volume (test 83.9 fL 80.0-95.0 N code = MCV) Mean Corpuscular Hemoglobin 29.7 pg 26.0-32.0 N (test code = MCH) Mean Corpuscular HGB Conc (test 35.4 g/dL 31.0-36.0 N code = MCHC) Red Cell Distribution Width 12.4 % 11.5-14.5 N (test code = RDW) Platelet Count (test code = 259 x10 3/uL 140-440 N PLTT) Mean Platelet Volume (test code 9.4 fL 7.5-11.2 N = MPV) Immature Granulocytes % (Auto) 0.7 % (test code = IMMGRAN%) Neutrophils % (Auto) (test code 92.1 % = NE%) Lymphocytes % (Auto) (test code 5.3 % = LY%) Monocytes % (Auto) (test code = 1.4 % MO%) Eosinophils % (Auto) (test code 0.1 % = EO%) Basophils % (Auto) (test code = 0.4 % BA%) Immature Granulocytes # (Auto) 0.09 x10 3/uL (test code = IMMGRAN#) Neutrophils # (Auto) (test code 12.3 x10 3/uL 2.7-7.3 H = NE#) Lymphocytes # (Auto) (test code 0.7 x10 3/uL 0.8-3.5 L = LY#) Monocytes # (Auto) (test code = 0.2 x10 3/uL 0.3-0.9 L MO#) Eosinophils # (Auto) (test code 0.0 x10 3/uL 0.0-0.3 N = EO#) Basophils # (Auto) (test code = 0.1 x10 3/uL 0.0-0.1 N BA#) nRBC Abs (test code = NRBCA) 0 10>3/mcL nRBC Pct (test code = NRBCP) 0 % Comprehensive Metabolic [id number] 00:15:00 Test Item Value Reference Range Interpretation Comments SODIUM (test code = NA) 134 mmol/L 136-145 L Potassium,K (test code = 3.5 mmol/L 3.5-5.1 N K) Chloride (test code = 100 mmol/L 98-107 N CL) Carbon Dioxide (test 24 mmol/L 21-32 N code = CO2) Anion Gap (test code = 10 mmol/L 7-16 N GAP) Blood Urea Nitrogen 21 mg/dL 7-18 H (test code = BUN) Creatinine (test code = 1.0 mg/dL 0.6-1.0 N CREATT) Creatinine Clr Calc 60.01 mL/min Pharmacy (test code = CRCLPHA) Estimated Glomerular 65 See_Comment L Reporte d eGFR is Filt Rate (test code = based on the EGFR.XX) CKD-EPI 202 equation thatdo es not use a race coefficient. Additional information can be found at:07-04-8483_m cb_ egfr_summary_fl emilia 5.pdf (kidney.o rg) [Automated message] The system which generated this result transmit charisse reference range : >=90 ml/min/1.73m2. The reference range was not used to interpret this result as normal/abnormal . BUN/Creatinine Ratio 21 (test code = BCRATIO) Glucose (test code = 224 mg/dL 74-106 H GLU) Calcium (test code = CA) 9.1 mg/dL 8.5-10.1 N Aspartate Amino 39 IU/L 15-37 H Transferase (test code = AST) Alanine Aminotransferase 36 IU/L 12-78 N (test code = ALT) Albumin Level (test code 3.7 g/dL 3.4-5.0 N = ALB) Bilirubin,Total (test 1.0 mg/dL 0.2-1.0 N code = BILIT) Total Protein (test code 6.9 g/dL 6.4-8.2 N = TP) Globulin (test code = 3 GLOB) Albumin/Globulin Ratio 1.2 ratio 1.2-3.0 N (test code = AGRATIO) Alkaline Phosphatase 155 IU/L 50-136 H (test code = ALP) [id number] 00:15:00 Test Item Value Reference Range Interpretation Comments Lipase (test code = LIP) 205 IU/L 73-393 N UA, Urinalysis Rflx Cult/[id number] 23:01:00 Test Item Value Reference Range Interpretation Comments Color,Urine (test code = UCOL) Yellow Yellow Clarity,Urine (test code = UCLAR) Clear Clear PH,Urine (test code = UPH.XX) 5.5 5.0-8.0 Specific [place],Urine (test code = 1.039 SGU 1.005-1.030 H USG) Blood,Urine (test code = UBLD) Negative Negative Protein,Urine (test code = UPRO) Negative Negative Glucose,Urine (UA) (test code = >=1000 Negative A UGLU) Ketones,Urine (test code = UKET) 15 Negative Nitrate,Urine (test code = UNIT) Negative Negative Bilirubin,Urine (test code = UBIL) Negative Negative Urobilinogen,Urine (test code = 1.0 EU/dL Negative UURO) Leukocyte Esterase,Urine (test code Negative Negative = ULEU) CT abdomen pelvis w contrast [address] [address] Patient Name: Joanna Garcia Medical Record#: [id number] Address: [address] [place] [address] City/State/Zip: [place] [address]: Sharmaine Peña Insurance: [facility] [place] o /Age/Sex: 1965/56/F Self Pay Admit/Reg Date: 06/09/[address]: Sharmaine Andres MD Location: [facility]/ PCP: E/R Physician,E Date of Service: 06/10/22 Order (s): CT abdomen pelvis w contrast CPT Code: 60128 Report Number: [id number] Reason for Exam: Severe left abdominal pain ,diarrhea, normal UA Exam: CT Abdomen and Pelvis with Contrast, 06/10/2022 12:16 AM. Ordering Physician: Sharmaine Andres. History: Severe left abdominal pain ,diarrhea, normal UA. Technique: CT images of the abdomen and pelvis was obtained with intravenous contrast. Delayed abdominal and pelvic imaging was obtained. Coronal and sagittal reconstructed images were obtained.CT technique and radiation exposure utilized ALARA. Technical Quality: Adequate. Comparison: None. Findings: CT abdomen: Minimal chronic scarring or subsegmental atelectasis in the left upper lobe. Calcified atherosclerotic plaque in the right coronary artery. The stomach is moderately distended. The duodenum is not dilated. No calcified cholelithiasis nor evidence of acute cholecystitis. No intra nor extrahepatic biliary duct dilatation. The liver measures 19 cm in craniocaudal diameter. Minimal diffuse fatty infiltration throughout the liver. No hepatic mass. Patent portal veins. Normal caliber spleen, no mass. The pancreas is not enlarged, no pancreatic ductal dilatation. The bilateral adrenal glands are normal. Normal caliber right kidney, no right obstructive uropathy. Right renal cyst measures 1.2 x 1.0 cm. Moderate left hydronephrosis and moderate renal enlargement, decreased intensity corticomedullary enhancement, perinephric fat stranding, and perinephric fluid from obstructive uropathy. No hydroureter. No urinary calculi. Subcentimeter angiomyolipoma in the left kidney inferior pole.Normal caliber abdominal aorta. Mild calcified atherosclerotic plaque in the abdominal aorta. No abdominal or pelvic lymphadenopathy. CT pelvis: No dilated bowel loops. Circumferential wall thickening of the distal rectum measuring up to 1.8 cm is at least partially due to underdistention, the possibility of an intramural lesion cannot be entirely excluded. Portions of the colon are not distended. Mil d sigmoid diverticulosis without acute diverticulitis. Normal appendix. No free intraperitoneal air or significant free fluid. No abscess. No abnormal urinary bladder wall thickening. Prominent caliberuterus. Left exophytic subserosal uterine fibroid is partially calcified, and measures 4.3 x 2.6 cm.Endometrium measures 7 mm in AP thickness, and this is mildly thickened if this patient is postmenopausal. The endometrium is not thickened if this patient is premenopausal. The bilateral ovaries are not enlarged. Small fat-containing umbilical hernia. No acute osseous abnormality. Impression: Moderate left obstructive uropathy. Subcentimeter angiomyolipoma in the left kidney inferior pole. Right renal cyst. Mild sigmoid diverticulosis without acute diverticulitis. Uterine fibroid. AFC: [id number] RL [id number] of report. Dictated By: Khoa Lyles MD 06/10/22 0143 Signed By: Khoa Lyles MD 06/10/22 0156 TD/TT: 06/10/22 0143 Tech: [id number] cc: E/R; [id number]* E/R Physician,Darien Andres MD
[2023-03-15] MEDS ORDERED: NA CHLORIDE 0.9% 100 ML ONE (13:12)
[2023-03-15] MEDS ORDERED: MORPHINE 4 MG/ML SYR ONE (13:12)
[2023-03-15] MEDS ORDERED: PIPERACIL/TAZO 3.375 GM VIAL IV ONE (13:13)
[2023-03-15 13:16] LABS: Absolute Lymphocytes (CBC) 1.5 K/uL (0.7-4.9); Hematocrit 44.4 % (36.0-45.0); Lymphocytes % 26.8 % (15.3-44.8); MPV 7.5 fL (7.6-11.3); Platelets 210 thou/uL (152-406); RBC Red Blood Cell Count 5.16 M/uL (3.86-4.86)
[2023-03-15 13:22] LABS: Protime INR 1.15
[2023-03-15 13:37] LABS: Albumin 3.6 g/dL (3.4-5.0); Bilirubin Total 0.7 mg/dL (0.2-1.0); Potassium 3.7 mEq/L (3.5-5.1); Protein, Total 7.1 g/dL (6.4-8.2)
--- NOTE | 2023-03-15 13:56 | RAD REPORT ---
EXAM DESCRIPTION: CTAbdomen Pelvis W Contrast - 03/15/2023 1:43 pm CLINICAL HISTORY: Abdominal pain. RLQ PAIN COMPARISON: No comparisons TECHNIQUE: Biphasic CT imaging of the abdomen and pelvis was performed with 100 ml non-ionic IV cont rast. All CT scans are performed using dose optimization technique as appropriate and may include automated exposure control or mA/KV adjustment according to patient size. FINDINGS: The lung bases are clear. The liver demonstrates mild fatty infiltration. Spleen, pancreas, adrenal glands and kidneys are with in normal limits. Gallbladder distension. No bowel obstruction, free air, free fluid or abscess. Significant stool is present throughout the co chan. Sigmoid diverticulosis coli without diverticulitis. The appendix is not identified as a discrete structure, however, no secondary findings of appendicitis are identified. No evidence of significa nt lymphadenopathy. Calcified uterine fibroid. Lumbosacral degenerative changes. IMPRESSION: Prominent stool retained throughout the colon. Mild sigmoid diverticulosis. Gallbladder distension.
--- NOTE | 2023-03-15 15:05 | RAD REPORT ---
EXAM DESCRIPTION: US - Abdomen Exam Limited - 03/15/2023 2:54 pm CLINICAL HISTORY: ruq pain COMPARISON: No comparisons FINDINGS: The gallbladder demonstrates no gallstones. No pericholecystic fluid or gallbladder wall t hickening. The common bile duct is normal measuring 4 mm. The liver demonstrates no findings of intrahepatic biliary dilatation. IMPRESSION: Unremarkable examination.
--- NOTE | 2023-03-15 15:22 | EDPHYS ---
Physician Documentation [facility] Name: Joanna Parish Age: 57 yrs Sex: Female : 1965 Arrival Date: 03/15/2023 Time: 12:23 Bed 4 Private MD: ED Physician Chaparro Rowe HPI: 03/15 16:10 This 57 yrs old Female presents to ER via EMS with complaints of Abdominal rt pain, back pain. 16:10 About 4 to 5 days ago, the patient had evaluation at [facility] for abdominal rt pain, she had a CAT scan that showed constipation but showed no other findings. Patient states that her pain is continued since then, worsening today. She was seen at her primary care's office where the temperature was noted to be 100.2 F. Was sent to the ED for further evaluation. Pain is aching nature, radiates to the back, no other radiation. Pain is moderate severity, no other aggravating elevating factors.. Historical: - Allergies: 12:42 No Known Allergies; cm10 - PMHx: 12:42 Diabetes - NIDDM; Hyperlipidemia; Hypertension; cm10 - PSHx: 12:42 section; cm10 - Immunization history:: Adult Immunizations unknown. - Social history:: Smoking status: Patient denies any tobacco usage or history of. - Family history:: not pertinent. ROS: 16:10 Constitutional: Negative for fever, chills, and weight loss, Cardiovascular: Negative rt for chest pain, palpitations, and edema, Respiratory: Negative for shortness of breath, cough, wheezing, and pleuritic chest pain, MS/Extremity: Negative for injury and deformity, Skin: Negative for injury, rash, and discoloration, Neuro: Negative for headache, weakness, numbness, tingling, and seizure, Psych: Negative for depression, anxiety, suicide ideation, homicidal ideation, and hallucinations, 16:10 Abdomen/GI: Positive for abdominal pain, Negative for diarrhea, 16:10 Back: Positive for pain at rest, Negative for injury or acute deformity, Exam: 13:40 ECG was reviewed by the Attending Physician. rt 16:10 Constitutional: This is a well developed, well nourished patient who is awake, alert, rt and in no acute distress. Head/Face: Normocephalic, atraumatic. Chest/axilla: Normal chest wall appearance and motion. Nontender with no deformity. No lesions are appreciated. Cardiovascular: Regular rate and rhythm with a normal S1 and S2. No gallops, murmurs, or rubs. Normal PMI, no JVD. No pulse deficits. Respiratory: Lungs have equal breath sounds bilaterally, clear to auscultation and percussion. No rales, rhonchi or wheezes noted. No increased work of breathing, no retractions or nasal flaring. Abdomen/GI: Soft, non-tender, with normal bowel sounds. No distension or tympany. No guarding or rebound. No evidence of tenderness throughout. MS/ Extremity: Pulses equal, no cyanosis. Neurovascular intact. Full, normal range of motion. Neuro: Awake and alert, GCS 15, oriented to person, place, time, and situation. Cranial nerves II-XII grossly intact. Motor strength 5/5 in all extremities. Sensory grossly intact. Cerebellar exam normal. Normal gait. Psych: Awake, alert, with orientation to person, place and time. Behavior, mood, and affect are within normal limits. 16:10 Abdomen/GI: Mild tenderness to the right upper right lower quadrant, no rebound, guarding, distention, 16:10 Skin: Vesicular rash in a dermatomal pattern noted to the back radiating to the flank. Vital Signs: 12:40 BP 145 / 100; Pulse 93; Resp 18; Temp 98(O); Pulse Ox 98% on R/A; Weight 67.5 kg; Pain cm10 7/10; 16:01 BP 128 / 81; Pulse 83; Resp 18; Pulse Ox 99% on R/A; cm10 12:40 Pain Scale: Adult cm10 MDM: 12:36 Patient medically screened. rt 16:10 Differential Diagnosis Shingles, appendicitis, cholecystitis signs, nurses notes, lab test result(s), radiologic studies. Consideration of Admission/Observation Escalation of care including admission/observation considered. Patient has benign labs, no leukocytosis, lactic acidosis. CT scan and ultrasound showed no acute surgical pathology, no colitis. Patient does have a vesicular rash in the area of the pain, some most consistent with shingles, which this is the etiology of her pain. Discussed this at length with the patient, she has pain medications at home, she will follow-up as an outpatient.. I considered the following discharge prescriptions or medication management in the emergency department Medications were administered in the Emergency Department. See MAR. Independent interpretation of the following test(s) in the Emergency Department CT Scan: My interpretation is No bowel obstruction some interpretation of CT scan images. Care significantly affected by the following chronic conditions: Diabetes, Hypertension. Counseling: I had a detailed discussion with the patient and/or guardian regarding the historical points, exam findings, and any diagnostic results supporting the discharge/admit diagnosis, lab results, radiology results, the need for outpatient follow up, to return to the emergency department if symptoms worsen or persist or if there are any questions or concerns that arise at home. Response to treatment: the patient's symptoms have markedly improved after treatment. 03/15 12:37 Order name: Blood Culture Adult (2) rt 03/15 12:37 Order name: CBC with Diff; Complete Time: 14:00 rt 03/15 12:37 Order name: CMP; Complete Time: 14:00 rt 03/15 12:37 Order name: Lactate w/ 2H reflex if indic.; Complete Time: 14:00 rt 03/15 12:37 Order name: Protime (+inr); Complete Time: 14:00 rt 03/15 12:37 Order name: Ptt, Activated; Complete Time: 14:00 rt 03/15 12:37 Order name: Lipase; Complete Time: 14:00 rt 03/15 12:37 Order name: CT Abd/Pelvis - IV Contrast Only; Complete Time: 14:00 rt 03/15 14:28 Order name: US Abdomen Limited; Complete Time: 15:07 rt 03/15 12:37 Order name: EKG; Complete Time: 12:38 rt 03/15 12:37 Order name: Accucheck; Complete Time: 13:43 rt 03/15 12:37 Order name: Cardiac monitoring; Complete Time: 13:05 rt 03/15 12:37 Order name: EKG - Nurse/Tech; Complete Time: 13:05 rt 03/15 12:37 Order name: IV Saline Lock - Large Bore; Complete Time: 12:57 rt 03/15 12:37 Order name: Labs collected and sent; Complete Time: 12:57 rt 03/15 12:37 Order name: O2 Per Protocol; Complete Time: 12:57 rt 03/15 12:37 Order name: O2 Sat Monitoring; Complete Time: 12:57 rt 03/15 12:37 Order name: Vital Signs; Complete Time: :57 rt 03/15 12:37 Order name: IV Saline Lock; Complete Time: 12:46 rt EC:40 Rate is 88 beats/min. Rhythm is regular, Normal Sinus Rhythm with No ectopy. QRS [place] rt is Normal. DC interval is normal. QRS interval is normal. QT interval is normal. No Q waves. T waves are Normal. No ST changes noted. Administered Medications: 12:58 Drug: NS 0.9% IV 1000 ml IV at 1 bolus Per protocol; 1000 mL bolus Route: IV; Rate: 1 cm10 bolus; Site: right antecubital; 16:01 Follow up: Response: No adverse reaction; IV Status: Completed infusion; IV Intake: cm10 1000ml 13:05 Drug: morphine IVP or IV 4 mg IVP once over 4 mins Route: IVP; Infused Over: 4 mins; ph Site: right antecubital; 16:01 Follow up: Response: No adverse reaction cm10 13:15 Drug: Piperacillin-Tazobactam IVPB 3.375 grams IVPB once over 60 mins; (mix in NS 100 cm10 mL) Route: IVPB; Infused Over: 60 mins; Site: right antecubital; 16:00 Follow up: Response: No adverse reaction; IV Status: Completed infusion; IV Intake: cm10 100ml 16:00 Drug: Ketorolac IVP 15 mg IVP once Route: IVP; Site: right antecubital; cm10 16:01 Follow up: Response: No adverse reaction cm10 16:00 Drug: Gabapentin PO 300 mg PO once Route: PO; cm10 16:00 Follow up: Response: No adverse reaction cm10 16:23 Drug: valACYclovir PO 1000 mg PO once Route: PO; ph 16:23 Follow up: Response: No adverse reaction; Medication administered at discharge. ph Disposition Summary: 03/15/23 15:21 Discharge Ordered Notes: Location: Home rt Problem: new rt Symptoms: have improved rt Condition: Stable rt Diagnosis - Shingles rt - Constipation rt Followup: rt - With: Private Physician - When: 2 - 3 days - Reason: Discharge Instructions: - Discharge Summary Sheet rt - Constipation, Adult rt - Shingles rt Forms: - Medication Reconciliation Form rt - Thank You Letter rt - Antibiotic Education rt - Prescription Opioid Use rt - Patient Portal Instructions rt - Leadership Thank You Letter rt Prescriptions: - gabapentin 100 mg Oral capsule - take 1 capsule ORAL route every 8 hours; 30 capsule; Refills: 0, Product rt Selection Permitted - valacyclovir 1 gram Oral tablet - take 1 tablet ORAL route every 8 hours for 7 days; 21 tablet; Refills: 0, rt Product Selection Permitted - Lactulose 10 gram/15 mL Oral Solution - take 30 milliliters ORAL route once daily; 300 milliliter; Refills: 0, Product rt Selection Permitted Signatures: Dispatcher [employer] Solange Fernandes, HUMBLE RN ph Chaparro Rowe MD MD rt Jennifer Patterson RN RN cm10
--- NOTE | 2023-03-15 15:22 | ER ---
Nurse's Notes [facility] Name: Joanna Parish Age: 57 yrs Sex: Female : 1965 Arrival Date: 03/15/2023 Time: 12:23 Bed 4 Private MD: Diagnosis: Shingles;Constipation Presentation: 03/15 12:40 Chief complaint: Patient states: RLQ abdominal pain onset 4 days ago. Pt states that cm10 she was seen at [facility] 4 days ago and had a negative work up. Pt states that she went to see her PCP today and her pain got worse. Pt reports nausea, has tenderness to RLQ. Coronavirus screen: Vaccine status: Patient reports being unvaccinated. Client denies travel out of the [place] in the last 14 days. Ebola Screen: Patient denies travel to an Ebola-affected area in the 21 days before illness onset. No symptoms or risks identified at this time. Initial Sepsis Screen: Does the patient meet any 2 criteria? No. Patient's initial sepsis screen is negative. Does the patient have a suspected source of infection? No. Patient's initial sepsis screen is negative. Risk Assessment: Do you want to hurt yourself or someone else? Patient reports no desire to harm self or others. Onset of symptoms was March 15, 2023. 12:40 Method Of Arrival: EMS: [facility] cm10 12:40 Acuity: ANDRES 3 cm10 12:44 Care prior to arrival: Medication(s) given: Normal saline infusion, zofran 4 mg, cm10 Fentanyl 100mcg IV initiated. 20 GA, in the right antecubital area. Triage Assessment: 12:42 General: Appears in no apparent distress. uncomfortable, Behavior is calm, cooperative. cm10 Pain: Complains of pain in right lower quadrant. EENT: No deficits noted. No signs and/or symptoms were reported regarding the EENT system. Neuro: No deficits noted. [place] Agitation-Sedation Scale (RASS): 0 - Alert and Calm Level of Consciousness is awake, alert, obeys commands, Oriented to person, place, time, situation. Cardiovascular: No deficits noted. Patient's skin is warm and dry. Respiratory: No deficits noted. Airway is patent Respiratory effort is even, unlabored, Respiratory pattern is regular, symmetrical. GI: No deficits noted. Abdomen is tender to palpation in right lower quadrant Reports lower abdominal pain, nausea, vomiting. : No deficits noted. No signs and/or symptoms were reported regarding the genitourinary system. Derm: No deficits noted. No signs and/or symptoms reported regarding the dermatologic system. Skin is intact, Skin is pink, warm \T\ dry. Musculoskeletal: No deficits noted. Range of motion: intact in all extremities. Historical: - Allergies: 12:42 No Known Allergies; cm10 - PMHx: 12:42 Diabetes - NIDDM; Hyperlipidemia; Hypertension; cm10 - PSHx: 12:42 section; cm10 - Immunization history:: Adult Immunizations unknown. - Social history:: Smoking status: Patient denies any tobacco usage or history of. - Family history:: not pertinent. Screenin:44 [facility] ED Fall Risk Assessment (Adult) History of falling in the last 3 months, cm10 including since admission No falls in past 3 months (0 pts) Confusion or Disorientation No (0 pts) Intoxicated or Sedated No (0 pts) Impaired Gait No (0 pts) Mobility Assist Device Used No (0 pt) Altered Elimination No (0 pt) Score/Fall Risk Level 0 - 2 = Low Risk Oriented to surroundings, Maintained a safe environment, Hourly rounding (assess needs \T\ fall precautionary measures) done. Abuse screen: Denies threats or abuse. Denies injuries from another. Nutritional screening: No deficits noted. Tuberculosis screening: No symptoms or risk factors identified. Vital Signs: 12:40 BP 145 / 100; Pulse 93; Resp 18; Temp 98(O); Pulse Ox 98% on R/A; Weight 67.5 kg; Pain cm10 7/10; 16:01 BP 128 / 81; Pulse 83; Resp 18; Pulse Ox 99% on R/A; cm10 12:40 Pain Scale: Adult cm10 ED Course: 12:36 Patient arrived in ED. ph 12:36 Chaparro Rowe MD is Attending Physician. rt 12:42 Triage completed. cm10 12:44 Arm band placed on Patient placed in an exam room, on a stretcher. cm10 12:44 Patient has correct armband on for positive identification. Placed in gown. Bed in low cm10 position. Call light in reach. Side rails up X2. Provided Education on: ER process and procedures. . Pulse ox on. NIBP on. 12:46 Maintain EMS IV. Dressing intact. Good blood return noted. Site clean \T\ dry. Gauge \T\ cm 10 site: 20G RAC. 12:50 First set of blood cultures drawn by me. cm10 12:57 CBC with Diff Sent. cm10 12:57 CMP Sent. cm10 12:57 Lactate w/ 2H reflex if indic. Sent. cm10 12:57 Protime (+inr) Sent. cm10 12:57 Ptt, Activated Sent. cm10 13:12 Second set of blood cultures drawn by me. cm10 13:16 EKG done, by ED staff, reviewed by Chaparro Rowe MD. cm10 13:43 CT Abd/Pelvis - IV Contrast Only In Process Unspecified. EDMS 14:56 US Abdomen Limited In Process Unspecified. EDMS 16:01 No provider procedures requiring assistance completed. IV discontinued, intact, cm10 bleeding controlled, No redness/swelling at site. Pressure dressing applied. Administered Medications: 12:58 Drug: NS 0.9% IV 1000 ml IV at 1 bolus Per protocol; 1000 mL bolus Route: IV; Rate: 1 cm10 bolus; Site: right antecubital; 16:01 Follow up: Response: No adverse reaction; IV Status: Completed infusion; IV Intake: cm10 1000ml 13:05 Drug: morphine IVP or IV 4 mg IVP once over 4 mins Route: IVP; Infused Over: 4 mins; ph Site: right antecubital; 16:01 Follow up: Response: No adverse reaction cm10 13:15 Drug: Piperacillin-Tazobactam IVPB 3.375 grams IVPB once over 60 mins; (mix in NS 100 cm10 mL) Route: IVPB; Infused Over: 60 mins; Site: right antecubital; 16:00 Follow up: Response: No adverse reaction; IV Status: Completed infusion; IV Intake: cm10 100ml 16:00 Drug: Ketorolac IVP 15 mg IVP once Route: IVP; Site: right antecubital; cm10 16:01 Follow up: Response: No adverse reaction cm10 16:00 Drug: Gabapentin PO 300 mg PO once Route: PO; cm10 16:00 Follow up: Response: No adverse reaction cm10 16:23 Drug: valACYclovir PO 1000 mg PO once Route: PO; ph 16:23 Follow up: Response: No adverse reaction; Medication administered at discharge. ph Medication: 12:44 VIS not applicable for this client. cm10 Intake: 16:00 IV: 100ml; Total: 100ml. cm10 16:01 IV: 1000ml; Total: 1100ml. cm10 Outcome: 15:21 Discharge ordered by . rt 16:02 Discharged to home ambulatory, with significant other, cm10 16:02 Condition: good 16:02 Discharge instructions given to patient, Instructed on discharge instructions, follow up and referral plans. medication usage, Demonstrated understanding of instructions, follow-up care, medications, Prescriptions given X 3, 16:24 Patient left the ED. ph Signatures: Dispatcher [employer] Solange Fernandes RN RN ph Chaparro Rowe MD MD rt Jennifer Patterson RN RN cm10
[2023-03-15] MEDS ORDERED: VALACYCLOVIR 500 MG TAB PO ONE (16:00)
[2023-03-15] MEDS ORDERED: KETOROLAC 30 MG/ML INJ ONE (16:04)
[2023-03-15] MEDS ORDERED: GABAPENTIN 300 MG CAP ONE (16:04)
[2023-03-15 16:28] VITALS: TEMP 98
[2023-03-15 16:29] VITALS: BP 128/81; O2SAT 99
--- NOTE | 2023-03-18 14:20 | EKG ---
Test Date: 2023-03-15 Test Time: 14:03:17 Pattern Duplicator: AGNIESZKA MEASUREMENT RESULTS: Intervals: Rate: 88 OH: 130 QRSD: 90 QT: 356 QTc: 430 [place]: P: -9 OH: 130 QRS: -13 T: 26 INTERPRETIVE STATEMENTS: Normal sinus rhythm Normal ECG No previous ECG available for comparison Electronically Signed On 03-18-23 14:10:25 FLIGHT READINESS TECHNICIAN by Lobo Nash
== END 2023-03-15 16:24 | disposition home or self-care (01) ==
LOC: ER 12:23
DX: K59.00 Constipation, unspecified (principal); B02.9 Zoster without complications; E11.9 Type 2 diabetes mellitus without complications; I10 Essential (primary) hypertension
CPT/HCPCS: 96365; 93005; 87040 ×2; 85025; 36415; 85610; 83605; 85730; 83690; 80053; 74177; 76705; 96375; 99284; 96366; Q9967; J2543

== ENCOUNTER 2024-12-17 13:28 | Emergency (ER) | payer OTHER ==
[2024-12-17] MEDS ORDERED: HYDROCODONE/APAP 7.5/325 MG TAB ONE (14:52)
[2024-12-17] MEDS ORDERED: KETOROLAC 30 MG/ML INJ ONE (14:53)
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
[2024-12-17 16:58] VITALS: TEMP 97.8
[2024-12-17 16:59] VITALS: BP 162/92; O2SAT 96
== END 2024-12-17 16:37 | disposition home or self-care (01) ==
LOC: ER 13:28
DX: S09.90XA Unspecified injury of head, initial encounter (principal); S19.9XXA Unspecified injury of neck, initial encounter; V49.9XXA Car occupant (driver) (passenger) injured in unspecified traffic accident, initial encounter; I10 Essential (primary) hypertension; E11.9 Type 2 diabetes mellitus without complications; E78.5 Hyperlipidemia, unspecified
CPT/HCPCS: 70450; 72125; 96372; 99284